=== PATIENT | male | born 1955 | race Caucasian/White ===

== ENCOUNTER 2019-12-04 14:20 | Emergency (ER) | payer SELFPAY ==
[~2019-12-04 14:20] MED LIST: Tenecteplase 50 MG Kit ONE
--- NOTE | 2019-12-04 15:20 | CR ---
Abdomen: Supine and upright views the abdomen were obtained. Comparison: No prior abdominal x-ray. Aortoiliac stent is noted. Bowel gas pattern is normal. Calcifications are seen within the pelvis which are compatible with phleboliths. Small nonobstructing stone also felt to be present within the left kidney. Impression: 1. Calcifications as noted above. 2. Nothing acute is appreciated. Diagnostic code #2 Study was dictated in MDT
--- NOTE | 2019-12-04 15:21 | CR ---
Chest: Portable view of the chest was obtained. Comparison: Prior chest x-ray of 05/19/16. Findings: Heart size is normal. Tortuous thoracic aorta is seen. Lungs are clear with no acute parenchymal change. Bony structures are grossly intact. Impression: 1. Nothing acute is seen on portable chest x-ray. Diagnostic code #1 Study was dictated in MDT
[2019-12-04] MEDS ORDERED: Lactated Ringers 1,000 ML IV ONE ×2 (16:46→17:34)
--- NOTE | 2019-12-04 16:57 | EDM.PDOC ---
ED HPI GENERAL MEDICAL PROBLEM - General Chief Complaint: Gastrointestinal Problem Stated Complaint: [facility] Time Seen by Provider: 12/04/19 16:44 - History of Present Illness INITIAL COMMENTS - FREE TEXT/NARRATIVE: 64-year-old male brought into the emergency room with nausea a little vomiting and poor appetite. This is been going on for couple weeks the patient denies any pain. The patient has history of some vascular disease he had a aortic stent placed some years back with extensions into the iliac vessels. The patient continues to smoke 1 to 2 packs of cigarettes a day. At this time he denies any pain he has not had any diarrhea and he is not aware of any fevers he just has not eat when or drinking very much over the last couple weeks he believes he is down about 20 pounds. - Related Data Allergies Allergy/AdvReac Type Severity Reaction Status Date / Time No Known Allergies Allergy Verified 12/04/19 14:29 Home Meds: Home Meds Ondansetron [Ondansetron ODT] 4 mg PO ASDIRECTED PRN #12 tab.rapdis 12/04/19 [Rx] Potassium Chloride 0 meq PO DAILY 12/04/19 [History] Past Medical History HEENT History: Reports: Impaired Vision Cardiovascular History: Reports: Hypertension Respiratory History: Reports: None Gastrointestinal History: Reports: None Genitourinary History: Reports: None Musculoskeletal History: Reports: Fracture Neurological History: Reports: None Psychiatric History: Reports: None Endocrine/Metabolic History: Reports: Hypokalemia Hematologic History: Reports: None Immunologic History: Reports: None Oncologic (Cancer) History: Reports: None Dermatologic History: Reports: None - Infectious Disease History Infectious Disease History: Reports: None - Past Surgical History Cardiovascular Surgical History: Reports: Other (See Below) Other Cardiovascular Surgeries/Procedures: Aortic Anuerysm Repair Musculoskeletal Surgical History: Reports: Shoulder Surgery Social & Family History - Tobacco Use Smoking Status *Q: Current Every Day Smoker Years of Tobacco use: 45 Packs/Tins Daily: 2 - Caffeine Use Caffeine Use: Reports: Coffee, Soda - Recreational Drug Use Recreational Drug Use: No ED ROS GENERAL - Review of Systems Review Of Systems: See Below Constitutional: Reports: No Symptoms HEENT: Reports: No Symptoms Respiratory: Reports: No Symptoms Cardiovascular: Reports: No Symptoms Endocrine: Reports: No Symptoms GI/Abdominal: Reports: No Symptoms : Reports: No Symptoms Musculoskeletal: Reports: No Symptoms Skin: Reports: No Symptoms Neurological: Reports: No Symptoms Psychiatric: Reports: No Symptoms Hematologic/Lymphatic: Reports: No Symptoms ED EXAM, GENERAL - Physical Exam Exam: See Below Exam Limited By: No Limitations General Appearance: Alert, No Apparent Distress Eye Exam: Bilateral Eye: Normal Inspection Ears: Normal External Exam, Normal Canal, Hearing Grossly Normal, Normal TMs Nose: Normal Inspection, Normal Mucosa, No Blood Throat/Mouth: Normal Inspection, Normal Lips, Normal Teeth, Normal Gums, Normal Oropharynx, Normal Voice, No Airway Compromise, Other (Semi-dry mucosa) Head: Atraumatic, Normocephalic Neck: Normal Inspection, Supple, Non-Tender, Full Range of Motion. No: Lymphadenopathy (L), Lymphadenopathy (R) Respiratory/Chest: No Respiratory Distress, Lungs Clear, Normal Breath Sounds, No Accessory Muscle Use, Chest Non-Tender Cardiovascular: Regular Rate, Rhythm, No Edema, No Murmur GI/Abdominal: Normal Bowel Sounds, Soft, Non-Tender Back Exam: Normal Inspection. No: CVA Tenderness (L), CVA Tenderness (R) Extremities: Normal Inspection, Normal Range of Motion, Non-Tender Neurological: Alert, Oriented, Normal Cognition Psychiatric: Normal Affect, Normal Mood EKG INTERPRETATION EKG Date: 12/04/19 Rhythm: NSR [place]: LAD-Left [place] Deviation P-Wave: Present QRS: LBBB ST-T: Other (Normal disconcordant pattern except he has concordant ST depression in the inferior leads of indeterminate significance) QT: Normal Comparison: NA - No Prior EKG Course - Vital Signs Last Recorded V/S: Last Vital Signs Temp 36.5 C 12/04/19 14:24 Pulse 91 12/04/19 14:24 Resp 16 12/04/19 14:24 BP 137/89 12/04/19 14:24 Pulse Ox 94 L 12/04/19 14:24 - Orders/Labs/Meds Orders: Active Orders 24 hr Category Date Time Status EKG Documentation Completion [RC] STAT Care 12/04/19 14:31 Active UA RFX KANU AND CULT IF INDIC [URIN] Stat Lab 12/04/19 17:35 Ordered Labs: Laboratory Tests 12/04/19 12/04/19 12/04/19 Range/Units 14:27 14:27 14:27 WBC 10.50 H (4.23-9.07) K/mm3 RBC 5.35 (4.63-6.08) M/mm3 Hgb 15.8 (13.7-17.5) gm/dl Hct 47.0 (40.1-51.0) % MCV 87.9 (79.0-92.2) fl MCH 29.5 (25.7-32.2) pg MCHC 33.6 (32.2-35.5) g/dl RDW Std Deviation 46.1 H (35.1-43.9) fL Plt Count 211 (163-337) K/mm3 MPV 12.3 (9.4-12.3) fl Neut % (Auto) 75.1 H (34.0-67.9) % Lymph % (Auto) 12.1 L (21.8-53.1) % Harris % (Auto) 11.4 (5.3-12.2) % Eos % (Auto) 0.7 L (0.8-7.0) Baso % (Auto) 0.4 (0.1-1.2) % Neut # (Auto) 7.89 H (1.78-5.38) K/mm3 Lymph # (Auto) 1.27 L (1.32-3.57) K/mm3 Harris # (Auto) 1.20 H (0.30-0.82) K/mm3 Eos # (Auto) 0.07 (0.04-0.54) K/mm3 Baso # (Auto) 0.04 (0.01-0.08) K/mm3 Manual Slide Review Normal smear PT 11.9 H (9.7-11.7) SECONDS INR 1.11 APTT 30 (22-31) SECONDS Sodium 141 (136-145) mEq/L Potassium 3.5 (3.5-5.1) mEq/L Chloride 104 (98-107) mEq/L Carbon Dioxide 27 (21-32) mEq/L Anion Gap 13.5 (5-15) BUN 42 H D (7-18) mg/dL Creatinine 1.8 H (0.7-1.3) mg/dL Est Cr Clr Drug Dosing 42.00 mL/min Estimated GFR (MDRD) 38 (>60) mL/min BUN/Creatinine Ratio 23.3 H (14-18) Glucose 125 H (80-115) mg/dL Calcium 10.0 (8.5-10.1) mg/dL Ferritin (26-388) ng/ml Total Bilirubin 0.7 (0.2-1.0) mg/dL AST 21 (15-37) U/L ALT 19 (16-63) U/L Alkaline Phosphatase 80 (46-116) U/L Lactate Dehydrogenase (85-227) U/L Troponin I (0.00-0.056) ng/mL C-Reactive Protein (<1.0) mg/dL Total Protein 7.4 (6.4-8.2) g/dl Albumin 3.8 (3.4-5.0) g/dl Globulin 3.6 gm/dL Albumin/Globulin Ratio 1.1 (1-2) COVID-19 (KATELYN) (NEGATIVE) 12/04/19 12/04/19 12/04/19 Range/Units 14:27 14:27 14:27 WBC (4.23-9.07) K/mm3 RBC (4.63-6.08) M/mm3 Hgb (13.7-17.5) gm/dl Hct (40.1-51.0) % MCV (79.0-92.2) fl MCH (25.7-32.2) pg MCHC (32.2-35.5) g/dl RDW Std Deviation (35.1-43.9) fL Plt Count (163-337) K/mm3 MPV (9.4-12.3) fl Neut % (Auto) (34.0-67.9) % Lymph % (Auto) (21.8-53.1) % Harris % (Auto) (5.3-12.2) % Eos % (Auto) (0.8-7.0) Baso % (Auto) (0.1-1.2) % Neut # (Auto) (1.78-5.38) K/mm3 Lymph # (Auto) (1.32-3.57) K/mm3 Harris # (Auto) (0.30-0.82) K/mm3 Eos # (Auto) (0.04-0.54) K/mm3 Baso # (Auto) (0.01-0.08) K/mm3 Manual Slide Review PT (9.7-11.7) SECONDS INR APTT (22-31) SECONDS Sodium (136-145) mEq/L Potassium (3.5-5.1) mEq/L Chloride (98-107) mEq/L Carbon Dioxide (21-32) mEq/L Anion Gap (5-15) BUN (7-18) mg/dL Creatinine (0.7-1.3) mg/dL Est Cr Clr Drug Dosing mL/min Estimated GFR (MDRD) (>60) mL/min BUN/Creatinine Ratio (14-18) Glucose (80-115) mg/dL Calcium (8.5-10.1) mg/dL Ferritin 739 H (26-388) ng/ml Total Bilirubin (0.2-1.0) mg/dL AST (15-37) U/L ALT (16-63) U/L Alkaline Phosphatase (46-116) U/L Lactate Dehydrogenase 180 (85-227) U/L Troponin I < 0.017 (0.00-0.056) ng/mL C-Reactive Protein <0.2 (<1.0) mg/dL Total Protein (6.4-8.2) g/dl Albumin (3.4-5.0) g/dl Globulin gm/dL Albumin/Globulin Ratio (1-2) COVID-19 (KATELYN) (NEGATIVE) 12/04/19 Range/Units 14:49 WBC (4.23-9.07) K/mm3 RBC (4.63-6.08) M/mm3 Hgb (13.7-17.5) gm/dl Hct (40.1-51.0) % MCV (79.0-92.2) fl MCH (25.7-32.2) pg MCHC (32.2-35.5) g/dl RDW Std Deviation (35.1-43.9) fL Plt Count (163-337) K/mm3 MPV (9.4-12.3) fl Neut % (Auto) (34.0-67.9) % Lymph % (Auto) (21.8-53.1) % Harris % (Auto) (5.3-12.2) % Eos % (Auto) (0.8-7.0) Baso % (Auto) (0.1-1.2) % Neut # (Auto) (1.78-5.38) K/mm3 Lymph # (Auto) (1.32-3.57) K/mm3 Harris # (Auto) (0.30-0.82) K/mm3 Eos # (Auto) (0.04-0.54) K/mm3 Baso # (Auto) (0.01-0.08) K/mm3 Manual Slide Review PT (9.7-11.7) SECONDS INR APTT (22-31) SECONDS Sodium (136-145) mEq/L Potassium (3.5-5.1) mEq/L Chloride (98-107) mEq/L Carbon Dioxide (21-32) mEq/L Anion Gap (5-15) BUN (7-18) mg/dL Creatinine (0.7-1.3) mg/dL Est Cr Clr Drug Dosing mL/min Estimated GFR (MDRD) (>60) mL/min BUN/Creatinine Ratio (14-18) Glucose (80-115) mg/dL Calcium (8.5-10.1) mg/dL Ferritin (26-388) ng/ml Total Bilirubin (0.2-1.0) mg/dL AST (15-37) U/L ALT (16-63) U/L Alkaline Phosphatase (46-116) U/L Lactate Dehydrogenase (85-227) U/L Troponin I (0.00-0.056) ng/mL C-Reactive Protein (<1.0) mg/dL Total Protein (6.4-8.2) g/dl Albumin (3.4-5.0) g/dl Globulin gm/dL Albumin/Globulin Ratio (1-2) COVID-19 (KATELYN) Negative (NEGATIVE) Meds: Medications Discontinued Medications Generic Name Dose Route Start Last Admin Trade Name Freq PRN Reason Stop Dose Admin Lactated Ringer's 1,000 mls @ 999 mls/hr 12/04/19 16:46 12/04/19 17:15 Ringers, Lactated IV 12/04/19 17:46 999 mls/hr .BOLUS ONE Administration Lactated Ringer's 1,000 mls @ 999 mls/hr 12/04/19 17:34 12/04/19 17:45 Ringers, Lactated IV 12/04/19 18:34 999 mls/hr .BOLUS ONE Administration - Re-Assessments/Exams Free Text/Narrative Re-Assessment/Exam: 12/04/19 19:37 Labs were obtained which were essentially unremarkable troponin is negative COVID is negative his ferritin was elevated. EKGs were reviewed by Dr. Carpenter steel tester at [facility] in [place] who did not think anything acute was going on with that. I am concerned about the patient's dehydration. He cannot give us a urine specimen here in the emergency room after receiving 2-1/2 L of fluid. I have offered the patient observation for rehydration but he declined this he really wants to go home he does have follow-up arranged with his provider in [place] tomorrow. I did still rather the patient stay here I discussed this with the patient a couple of times but he is really insistent on going home right now so I will discharge him. Departure - Departure Time of Disposition: 19:39 Disposition: Home, Self-Care 01 Clinical Impression: Dehydration, Renal insufficiency, Weight loss, Nausea & vomiting - Discharge Information Referrals: PCP,None [Primary Care Provider] - Forms: ED Department Discharge Additional Instructions: Return to the emergency room with any questions problems or worsening symptoms. Follow-up in the [facility] tomorrow as scheduled. Discuss your problems with voiding have your urine checked and repeat blood work You have been given a prescription for Zofran to take 1 every 4-6 hours as needed for nausea. It is essential to keep this under control because you must drink lots of fluids. Drink lots of fluids. Sepsis Event Note (ED) - Evaluation Sepsis Screening Result: No Definite Risk - Focused Exam Vital Signs: Vital Signs Temp Pulse Resp BP Pulse Ox 12/04/19 14:24 36.5 C 91 16 137/89 94 L - My Orders Last 24 Hours: My Active Orders 12/04/19 14:31 EKG Documentation Completion [RC] STAT 12/04/19 17:35 UA RFX KANU AND CULT IF INDIC [URIN] Stat - Assessment/Plan Last 24 Hours: My Active Orders 12/04/19 14:31 EKG Documentation Completion [RC] STAT 12/04/19 17:35 UA RFX KANU AND CULT IF INDIC [URIN] Stat
== END 2019-12-04 19:50 | disposition home or self-care (01) ==
LOC: JD.ED 14:20
DX: E86.0 Dehydration (principal); R11.2 Nausea with vomiting, unspecified; I10 Essential (primary) hypertension; F17.210 Nicotine dependence, cigarettes, uncomplicated; R63.4 Abnormal weight loss; Z20.828 Contact with and (suspected) exposure to other viral communicable diseases; N28.9 Disorder of kidney and ureter, unspecified
CPT/HCPCS: 36415; 71045; 74019; 80053; 82728; 83615; 84484; 85025; 85610; 85730; 86140; 87635; 93005; 96360; 96361; 99285; J7120; 93010; 99283; U0002

== ENCOUNTER 2019-12-16 17:53 | Inpatient (IN) | payer SELFPAY ==
[2019-12-16] MEDS ORDERED: Sodium Chloride 0.9% 1,000 ML IV ONE (18:51)
[2019-12-16] MEDS: Sodium Chloride 0.9% 10 ML Syringe FLUSH PRN ×2 (19:02→19:56)
--- NOTE | 2019-12-16 19:26 | EDM.PDOC ---
ED HPI GENERAL MEDICAL PROBLEM - General Chief Complaint: Gastrointestinal Problem Stated Complaint: [facility] Time Seen by Provider: 12/16/19 18:58 Source of Information: Reports: Patient, Old Records (ED visit 12/04/2019) History Limitations: Reports: No Limitations - History of Present Illness INITIAL COMMENTS - FREE TEXT/NARRATIVE: Mr. Caldwell is a very pleasant 64-year-old gentleman who, medical records indicate, was seen in this ED on 12/04/2019 with a complaint at that time of vomiting and poor oral intake for about 2 weeks with a concomitant weight loss of about 20 pounds over that period of time. He was found to be hemodynamically stable, afebrile, saturating 94% on room air. His physical exam was unremarkable. Work-up included a CBC, CMP, LDH, ferritin, CRP, troponin, an ECG, and a test for the SARS-CoV-2 virus. His BUN/Cr was elevated at 42/1.8. His ferritin returned elevated at 739, with the remainder of his work-up being unremarkable. His case was discussed with cardiology in [place], who did not feel the patient required transfer. The patient was offered placement into observation for IV fluid, however, the patient declined and was therefore discharged home with a prescription for Zofran. The patient states that he followed up with his PCP on 12/05/2019, and was prescribed both omeprazole and sucralfate. The patient now returns to the ED by EMS with a complaint of progressively worsening weakness the past 2 weeks, to the point that he can barely ambulate today. He states that he has continued to vomit, and he believes that he is lost about 20 pounds over the past 2 weeks. He denies having abdominal pain, although he states that he has not had a bowel movement in about 1 week. The patient states that because of his nausea and vomiting, he has not taken any of his medications, including his recently prescribed medications, over the past 3 weeks, approximately. Per the triage note, EMS found the patient's BP to be depressed at 88/54, therefore he was given a 500 mL bolus of IV fluid en route to the ED. Here in the ED, the patient's initial BP is found to be slightly elevated at 143/94, otherwise, he is hemodynamically stable, afebrile, saturating 97% on room air. Other than the above symptoms, the patient denies having a recent fever, chills, sore throat, ear pain, nasal or sinus congestion, cough, dyspnea, chest pain, palpitations, diarrhea, abdominal pain, urinary symptoms, recent bloody bowel movements or black bowel movements, recent joint aches, headaches, or rashes. The patient's PCP is ROBERT Dos Santos. - Related Data Allergies Allergy/AdvReac Type Severity Reaction Status Date / Time No Known Allergies Allergy Verified 12/16/19 18:06 Home Meds: Home Meds Ondansetron [Ondansetron ODT] 4 mg PO ASDIRECTED PRN #12 tab.rapdis 12/04/19 [Rx] Metoprolol Succinate [Toprol XL 50mg] 50 mg PO DAILY 12/16/19 [History] Omeprazole 20 mg PO DAILY 12/16/19 [History] Past Medical History HEENT History: Reports: Impaired Vision Cardiovascular History: Reports: High Cholesterol, Hypertension, PVD Musculoskeletal History: Reports: Fracture (right shoulder), Gout (suspected, not tested) - Past Surgical History Cardiovascular Surgical History: Reports: Aneurysm (infrarenal aortic and bi- iliac aneurism graft) Musculoskeletal Surgical History: Reports: ORIF (right shoulder) Social & Family History - Tobacco Use Smoking Status *Q: Current Every Day Smoker Years of Tobacco use: 51 Packs/Tins Daily: 2 - Caffeine Use Caffeine Use: Reports: Coffee - Alcohol Use Alcohol Use History: No - Recreational Drug Use Recreational Drug Use: No - Living Situation & Occupation Living situation: Reports: , Alone 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 ED EXAM, GENERAL - Physical Exam Exam: See Below Exam Limited By: No Limitations General Appearance: Alert, No Apparent Distress, Thin Eye Exam: Bilateral Eye: EOMI, Normal Inspection Ears: Normal External Exam, Hearing Grossly Normal Nose: Normal Inspection Throat/Mouth: Normal Inspection, Normal Lips, Normal Voice, No Airway Com promise, Other (No facemask) Head: Atraumatic, Normocephalic Neck: Normal Inspection, Full Range of Motion Respiratory/Chest: No Respiratory Distress, Lungs Clear, Normal Breath Sounds, No Accessory Muscle Use Cardiovascular: Regular Rate, Rhythm, No Edema, No Gallop, No JVD, No Murmur, No Rub Peripheral Pulses: 1+: Radial (L), Radial (R) GI/Abdominal: Normal Bowel Sounds, Soft, Non-Tender, No Organomegaly, No Distention, No Abnormal Bruit, Mass (tubular, non-pulsatile, nontender in the left lower quadrant) (Male) Exam: Deferred Rectal (Males) Exam: Deferred Back Exam: Normal Inspection, Full Range of Motion, NT Extremities: Normal Inspection, Normal Range of Motion, No Pedal Edema, Normal Capillary Refill Neurological: Alert, Oriented, Normal Cognition, No Motor/Sensory Deficits Psychiatric: Normal Affect Skin Exam: Warm, Dry, Intact, Normal Color, No Rash EKG INTERPRETATION EKG Date: 12/16/19 Time: 19:56 Rhythm: NSR Rate (Beats/Min): 69 Shelton: LAD-Left Shelton Deviation P-Wave: Present QRS: LBBB QT: Prolonged (QTc 526) Comparison: No Change (12/04/2019) Course - Vital Signs Last Recorded V/S: Last Vital Signs Temp 36.1 C 12/16/19 17:58 Pulse 87 12/16/19 17:58 Resp 16 12/16/19 17:58 BP 151/87 H 12/16/19 19:07 Pulse Ox 97 12/16/19 17:58 Orthostatic Blood Pressure [ 146/92 Sitting] Orthostatic Blood Pressure [ 150/85 Supine] - Orders/Labs/Meds Orders: Active Orders 24 hr Category Date Time Status Bladder Scan [RC] ASDIRECTED Care 12/16/19 20:32 Active Blood Pressure Mgt: Sepsis [RC] [id number] Care 12/16/19 18:52 Active EKG Documentation Completion [RC] STAT Care 12/16/19 19:22 Active Orthostatic Vital Signs [RC] STAT Care 12/16/19 19:22 Active BASIC METABOLIC PANEL,BMP [CHEM] Timed Lab 12/17/19 08:00 Ordered CULTURE BLOOD [BC] Stat Lab 12/16/19 19:00 Received CULTURE BLOOD [BC] Stat Lab 12/16/19 19:15 Received Sodium Chloride 0.9% [Normal Saline] 1,000 ml Med 12/17/19 01:45 Active IV ASDIRECTED Sodium Chloride 0.9% [Saline Flush] Med 12/16/19 18:51 Active 10 ml FLUSH ASDIRECTED PRN Blood Culture x2 Reflex Set [OM.PC] Stat Oth 12/16/19 18:52 Ordered Saline Lock Insert [OM.PC] Stat Oth 12/16/19 18:52 Ordered Medication Orders Sodium Chloride (Normal Saline) 1,000 mls @ 250 mls/hr IV ASDIRECTED SANIA Last Admin: 12/17/19 02:00 Dose: 250 mls/hr Documented by: KAREEM Sodium Chloride (Saline Flush) 10 ml FLUSH ASDIRECTED PRN PRN Reason: Keep Vein Open Last Admin: 12/16/19 19:56 Dose: 10 ml Documented by: Admin: 12/16/19 19:02 Dose: 10 ml Documented by: YOBANI Labs: Laboratory Tests 12/16/19 12/16/19 12/16/19 Range/Units 19:00 19:00 19:00 WBC 21.92 H (4.23-9.07) K/mm3 RBC 5.96 (4.63-6.08) M/mm3 Hgb 17.4 D (13.7-17.5) gm/dl Hct 51.9 H (40.1-51.0) % MCV 87.1 (79.0-92.2) fl MCH 29.2 (25.7-32.2) pg MCHC 33.5 (32.2-35.5) g/dl RDW Std Deviation 49.1 H (35.1-43.9) fL Plt Count 175 (163-337) K/mm3 MPV 12.4 H (9.4-12.3) fl Neutrophils % (Manual) 85 H (40-60) % Band Neutrophils % 0 (0-10) % Lymphocytes % (Manual) 9 L (20-40) % Atypical Lymphs % 1 % Monocytes % (Manual) 5 (2-10) % Eosinophils % (Manual) 0 L (0.8-7.0) % Basophils % (Manual) 0 L (0.2-1.2) Platelet Estimate Adequate RBC Morph Comment Normal PT 12.8 H (9.7-11.7) SECONDS INR 1.20 Sodium 150 H (136-145) mEq/L Potassium 3.4 L (3.5-5.1) mEq/L Chloride 108 H (98-107) mEq/L Carbon Dioxide 24 (21-32) mEq/L Anion Gap 21.4 H (5-15) BUN 118 H D (7-18) mg/dL Creatinine 3.2 H D (0.7-1.3) mg/dL Est Cr Clr Drug Dosing 14.77 mL/min Estimated GFR (MDRD) 20 (>60) mL/min BUN/Creatinine Ratio 36.9 H (14-18) Glucose 127 H (80-115) mg/dL Lactic Acid (0.4-2.0) mmol/L Calcium 9.8 (8.5-10.1) mg/dL Magnesium (1.8-2.4) mg/dl Total Bilirubin 1.2 H (0.2-1.0) mg/dL AST 15 (15-37) U/L ALT 15 L (16-63) U/L Alkaline Phosphatase 88 (46-116) U/L Creatine Kinase (39-308) U/L Troponin I 0.067 H* (0.00-0.056) ng/mL C-Reactive Protein 0.7 (<1.0) mg/dL Total Protein 7.4 (6.4-8.2) g/dl Albumin 3.9 (3.4-5.0) g/dl Globulin 3.5 gm/dL Albumin/Globulin Ratio 1.1 (1-2) TSH 3rd Generation (0.358-3.74) uIU/mL Urine Color (Yellow) Urine Appearance (Clear) Urine pH (5.0-8.0) Ur Specific Ferriday (1.005-1.030) Urine Protein (Negative) Urine Glucose (UA) (Negative) Urine Ketones (Negative) Urine Occult Blood (Negative) Urine Nitrite (Negative) Urine Bilirubin (Negative) Urine Urobilinogen (0.2-1.0) Ur Leukocyte Esterase (Negative) U Hyaline Cast (Auto) (0-5) /lpf Urine RBC (0-5) /hpf Urine WBC (0-5) /hpf Ur Epithelial Cells (0-5) /hpf Urine Bacteria (FEW) /hpf Urine Mucus (FEW) /hpf COVID-19 (KATELYN) (NEGATIVE) 12/16/19 12/16/19 12/16/19 Range/Units 19:00 19:00 20:09 WBC (4.23-9.07) K/mm3 RBC (4.63-6.08) M/mm3 Hgb (13.7-17.5) gm/dl Hct (40.1-51.0) % MCV (79.0-92.2) fl MCH (25.7-32.2) pg MCHC (32.2-35.5) g/dl RDW Std Deviation (35.1-43.9) fL Plt Count (163-337) K/mm3 MPV (9.4-12.3) fl Neutrophils % (Manual) (40-60) % Band Neutrophils % (0-10) % Lymphocytes % (Manual) (20-40) % Atypical Lymphs % % Monocytes % (Manual) (2-10) % Eosinophils % (Manual) (0.8-7.0) % Basophils % (Manual) (0.2-1.2) Platelet Estimate RBC Morph Comment PT (9.7-11.7) SECONDS INR Sodium (136-145) mEq/L Potassium (3.5-5.1) mEq/L Chloride (98-107) mEq/L Carbon Dioxide (21-32) mEq/L Anion Gap (5-15) BUN (7-18) mg/dL Creatinine (0.7-1.3) mg/dL Est Cr Clr Drug Dosing mL/min Estimated GFR (MDRD) (>60) mL/min BUN/Creatinine Ratio (14-18) Glucose (80-115) mg/dL Lactic Acid 1.7 (0.4-2.0) mmol/L Calcium (8.5-10.1) mg/dL Magnesium 3.7 H (1.8-2.4) mg/dl Total Bilirubin (0.2-1.0) mg/dL AST (15-37) U/L ALT (16-63) U/L Alkaline Phosphatase (46-116) U/L Creatine Kinase 100 (39-308) U/L Troponin I (0.00-0.056) ng/mL C-Reactive Protein (<1.0) mg/dL Total Protein (6.4-8.2) g/dl Albumin (3.4-5.0) g/dl Globulin gm/dL Albumin/Globulin Ratio (1-2) TSH 3rd Generation 0.955 (0.358-3.74) uIU/mL Urine Color (Yellow) Urine Appearance (Clear) Urine pH (5.0-8.0) Ur Specific Ferriday (1.005-1.030) Urine Protein (Negative) Urine Glucose (UA) (Negative) Urine Ketones (Negative) Urine Occult Blood (Negative) Urine Nitrite (Negative) Urine Bilirubin (Negative) Urine Urobilinogen (0.2-1.0) Ur Leukocyte Esterase (Negative) U Hyaline Cast (Auto) (0-5) /lpf Urine RBC (0-5) /hpf Urine WBC (0-5) /hpf Ur Epithelial Cells (0-5) /hpf Urine Bacteria (FEW) /hpf Urine Mucus (FEW) /hpf COVID-19 (KATELYN) Negative (NEGATIVE) 12/16/19 12/17/19 12/17/19 Range/Units 22:00 00:10 04:00 WBC (4.23-9.07) K/mm3 RBC (4.63-6.08) M/mm3 Hgb (13.7-17.5) gm/dl Hct (40.1-51.0) % MCV (79.0-92.2) fl MCH (25.7-32.2) pg MCHC (32.2-35.5) g/dl RDW Std Deviation (35.1-43.9) fL Plt Count (163-337) K/mm3 MPV (9.4-12.3) fl Neutrophils % (Manual) (40-60) % Band Neutrophils % (0-10) % Lymphocytes % (Manual) (20-40) % Atypical Lymphs % % Monocytes % (Manual) (2-10) % Eosinophils % (Manual) (0.8-7.0) % Basophils % (Manual) (0.2-1.2) Platelet Estimate RBC Morph Comment PT (9.7-11.7) SECONDS INR Sodium 145 145 (136-145) mEq/L Potassium 3.2 L 3.7 (3.5-5.1) mEq/L Chloride 108 H 109 H (98-107) mEq/L Carbon Dioxide 26 25 (21-32) mEq/L Anion Gap 14.2 14.7 (5-15) BUN 109 H 102 H (7-18) mg/dL Creatinine 2.9 H 2.7 H (0.7-1.3) mg/dL Est Cr Clr Drug Dosing 16.29 17.50 mL/min Estimated GFR (MDRD) 22 24 (>60) mL/min BUN/Creatinine Ratio 37.6 H 37.8 H (14-18) Glucose 212 H 111 (80-115) mg/dL Lactic Acid (0.4-2.0) mmol/L Calcium 9.0 8.9 (8.5-10.1) mg/dL Magnesium (1.8-2.4) mg/dl Total Bilirubin (0.2-1.0) mg/dL AST (15-37) U/L ALT (16-63) U/L Alkaline Phosphatase (46-116) U/L Creatine Kinase (39-308) U/L Troponin I (0.00-0.056) ng/mL C-Reactive Protein (<1.0) mg/dL Total Protein (6.4-8.2) g/dl Albumin (3.4-5.0) g/dl Globulin gm/dL Albumin/Globulin Ratio (1-2) TSH 3rd Generation (0.358-3.74) uIU/mL Urine Color Yellow (Yellow) Urine Appearance Clear (Clear) Urine pH 5.5 (5.0-8.0) Ur Specific Ferriday 1.020 (1.005-1.030) Urine Protein Trace H (Negative) Urine Glucose (UA) Negative (Negative) Urine Ketones Negative (Negative) Urine Occult Blood Negative (Negative) Urine Nitrite Negative (Negative) Urine Bilirubin 1+ H (Negative) Urine Urobilinogen 0.2 (0.2-1.0) Ur Leukocyte Esterase Negative (Negative) U Hyaline Cast (Auto) 30-40 H (0-5) /lpf Urine RBC Not seen (0-5) /hpf Urine WBC 0-5 (0-5) /hpf Ur Epithelial Cells Not seen (0-5) /hpf Urine Bacteria Few (FEW) /hpf Urine Mucus Few (FEW) /hpf COVID-19 (KATELYN) (NEGATIVE) Meds: Medications Generic Name Dose Route Start Last Admin Trade Name Freq PRN Reason Stop Dose Admin Sodium Chloride 1,000 mls @ 250 mls/hr 12/17/19 01:45 12/17/19 02:00 Normal Saline IV 250 mls/hr ASDIRECTED SANIA Administration Sodium Chloride 10 ml 12/16/19 18:51 12/16/19 19:56 Saline Flush FLUSH 10 ml ASDIRECTED PRN Administration Keep Vein Open Discontinued Medications Generic Name Dose Route Start Last Admin Trade Name Noy PRN Reason Stop Dose Admin Sodium Chloride 1,000 mls @ 999 mls/hr 12/16/19 18:51 12/16/19 19:03 Normal Saline IV 12/16/19 19:51 999 mls/hr BOLUS ONE Administration Protocol Dextrose/Water 1,000 mls @ 250 mls/hr 12/16/19 22:15 12/16/19 22:19 Dextrose 5% In Water IV 250 mls/hr ASDIRECTED SANIA Administration Potassium Chloride 10 meq/ 100 mls @ 100 mls/hr 12/17/19 02:00 12/17/19 03:07 Premix IV 12/17/19 03:59 100 mls/hr Q1H SANIA Administration Iopamidol 100 ml 12/16/19 19:57 12/16/19 19:57 Isovue-300 (61%) IVPUSH 12/16/19 19:58 100 ml ONETIME ONE Administration - Re-Assessments/Exams Free Text/Narrative Re-Assessment/Exam: 12/16/19 19:19 As above, the patient presents with 2 weeks of progressively worsening generalized weakness, to the point that he can barely walk today, and weight loss in the setting of 2 weeks of vomiting and no bowel movement for the past week. He denies having any pain. EMS found his BP to be depressed at 88/64 for which they gave a 500 mL bolus of IV fluid, however, his BP is mildly elevated at 143/94 upon arrival to the ED. on physical examination, the patient is thin, and he has a thready pulse. There is a tubular, non-pulsatile mass felt in his left lower quadrant that I suspect is stool in the sigmoid colon, otherwise, his physical examination is unremarkable. A work-up including blood work, 2 sets of blood cultures, a urinalysis, a chest x-ray, and a CT of the abdomen and pelvis with oral and IV contrast was ordered at triage. I have added to this work-up orthostatics, additional blood work, an ECG, and a swab for the SARS-CoV-2 virus. 12/16/19 20:25 The patient is not orthostatic. His CBC is remarkable for a WBC count substantially elevated at 21.92, but with 0% bandemia. His Hct is elevated at 51.9, but with a Hgb within normal limits at 17.4, and the remainder of his CBC being unremarkable. His CMP is remarkable for a sodium elevated 150, potassium slightly depressed at 3.4, and anion gap elevated at 21.4, but with a bicarbonate normal at 24, a BUN/Cr elevated at 118/3.2, blood glucose slightly elevated at 127, and a TBil slightly elevated at 1.2, with the remainder of his CMP being unremarkable. His magnesium level is elevated at 3.7. His lactic acid level is within normal limits at 1.7. His troponin is slightly elevated at 0.067. His CPK is within normal limits at 100. His CRP is within normal limits at 0.7. His PT is slightly elevated at 12.8 with an INR within normal limits at 1.20. His TSH is within normal limits at 0.955. Two-view chest radiograph reviewed. The cardiac silhouette is within normal limits. No pulmonary vascular congestion. No pleural effusions. No focal infiltrate. No pneumothorax. There is hyperinflation with bilateral diaphragmatic flattening, consistent with COPD. Slight thoracic scoliosis noted. Formal read per the Radiologist pending. CT of the abdomen and pelvis with oral and IV contrast is read by [facility] as: 1. Gastric and duodenal wall thickening. Findings may be secondary to underdistention versus peptic ulcer disease/gastroduodenitis. Correlate clinically. 2. Nondilated thickened small bowel loops. Findings can be seen in the setting of enteritis. 3. Colonic diverticula. Possible wall thickening of the distal descending and sigmoid colon. Finding may be secondary to pseudo-wall thickening / under distention versus mild colitis/diverticulitis. 4. No CT findings of acute appendicitis. 5. Nonobstructing nephrolithiasis LEFT kidney. 6. Hepatic steatosis. 7. Distended bladder. Correlation for possible bladder outlet obstruction. 8. Small hiatal hernia. Distal esophageal wall thickening. Fluid within the distal esophagus. Gastroesophageal reflux. Clinical correlation for esophagitis. 9. Additional nonemergent CT findings above. The patient has not yet provided a urine sample. I have ordered a post-void bladder scan, however, if the patient is not able to provide a urine sample, I will have the patient's nurse bladder scan him directly, and if over 450 mL, place a Collins catheter. 12/16/19 21:31 The patient's test for the SARS-CoV-2 virus has returned negative. 12/16/19 21:58 Notified by Nohemy AGUILERA that the bladder scan found about 580 mL of urine in the patient's bladder. She is placing a Collins catheter. 12/16/19 22:08 Current guidelines recommend free water replacement using D5W at 3 to 6 ml/kg/hr. I have therefore ordered D5W at 250 mL/h. 12/16/19 23:02 The patient's urinalysis is unremarkable. 12/17/19 01:47 The patient's BMP at 00:10 is remarkable for a sodium down to 145, with a potassium depressed at 3.2, and a BUN/Cr of 109/2.9. His blood glucose is elevated at 212, with the remainder of his BMP being unremarkable. Based on the above, I have switched the patient's IV fluid to NS at 250 mL/h, and ordered IV KCl, 20 mEq to be given over 2 hours. I have ordered a repeat BMP to be drawn at 04:00. 12/17/19 04:48 The repeat BMP at 04:00 has the sodium stable at 145, potassium up to 3.7, bicarbonate stable at 25, and BUN/Cr improving to 102/2.7. Based on the above, we will continue NS at 250 mL/h. I will order a repeat BMP to be drawn at 08:00. 12/17/19 06:[address] Truong at 06:30. He accepted the patient for admission to the hospital. Departure - Departure Time of Disposition: 06:35 Disposition: Admitted As Inpatient 65 Condition: Good Clinical Impression: Hypernatremia, Hypokalemia, Acute on chronic renal failure, Urinary retention - Discharge Information *PRESCRIPTION DRUG MONITORING PROGRAM REVIEWED*: Not Applicable *COPY OF PRESCRIPTION DRUG MONITORING REPORT IN PATIENT SRINIVAS: Not Applicable Referrals: Jerilyn Dawkins PA-C [Physician Head Of [employer]] - Forms: ED Department Discharge Sepsis Event Note (ED) - Evaluation Sepsis Screening Result: No Definite Risk - Focused Exam Vital Signs: Vital Signs BP 12/16/19 19:07 151/87 H 12/16/19 18:52 146/87 H - My Orders Last 24 Hours: My Active Orders 12/16/19 19:22 EKG Documentation Completion [RC] STAT Orthostatic Vital Signs [RC] STAT 12/16/19 20:32 Bladder Scan [RC] ASDIRECTED 12/17/19 01:45 Sodium Chloride 0.9% [Normal Saline] 1,000 ml IV ASDIRECTED 12/17/19 08:00 BASIC METABOLIC PANEL,BMP [CHEM] Timed - Assessment/Plan Last 24 Hours: My Active Orders 12/16/19 19:22 EKG Documentation Completion [RC] STAT Orthostatic Vital Signs [RC] STAT 12/16/19 20:32 Bladder Scan [RC] ASDIRECTED 12/17/19 01:45 Sodium Chloride 0.9% [Normal Saline] 1,000 ml IV ASDIRECTED 12/17/19 08:00 BASIC METABOLIC PANEL,BMP [CHEM] Timed
[2019-12-16] MEDS ORDERED: Iopamidol 612 MG/ML 100 ML Bottle IVPUSH ONE (19:57)
--- NOTE | 2019-12-16 20:42 | CT ---
CT abdomen and pelvis Technique: Multiple axial sections were obtained from above the dome of the diaphragm inferiorly through the pubic symphysis. Intravenous contrast was utilized. No oral contrast has been given. Delayed images were obtained through the bladder. Comparison: Prior abdominal x-ray of 12/04/19. Findings: Visualized lung bases show nothing acute. Liver contains no focal abnormality. Small hiatal hernia is noted. Spleen appears normal. Gallbladder contains no calcified gallstones. Cysts are noted within both kidneys. Largest cyst is located off the right kidney measuring 5.0 cm. Adrenal glands show no nodule. Pancreas shows no discrete abnormality. Abdominal aortic aneurysm is seen which contains an aortoiliac stent. Contrast remains within the stent. No retroperitoneal adenopathy or mesenteric abnormalities are seen. Sigmoid diverticuli are seen with no findings of diverticulitis. Appendix felt to be visualized and is normal in size. Delayed images shows no contrast within the bladder suggesting the possibility of dehydration. Bone window settings were reviewed which shows mild degenerative change within the lower lumbar spine. No acute osseous finding is appreciated. Impression: 1. Findings as noted above which are believed to be incidental. 2. Nothing acute is appreciated on CT study of the abdomen and pelvis. Diagnostic code #2 This report was dictated in MDT
--- NOTE | 2019-12-16 20:45 | CR ---
Chest: 2 views of the chest were obtained. Comparison: No prior chest imaging is available. Heart size and mediastinum are normal. Nodule on both sides of the chest possibly due to nipple densities since they are symmetric. Lungs are clear with no acute parenchymal change. Mild scoliosis is noted within the spine. Impression: 1. Nothing acute is seen on 2 view chest x-ray. Diagnostic code #2 This report was dictated in MDT
[2019-12-16] MEDS ORDERED: Dextrose 5% in Water 1,000 ML IV SCH (22:15)
[2019-12-17] MEDS ORDERED: Sodium Chloride 0.9% 1,000 ML IV SCH (01:45)
[2019-12-17] MEDS: Potassium Chloride 10 MEQ in Premix Bag 1 BAG IV SCH ×2 (02:00→03:07)
[2019-12-17] MEDS ORDERED: Ondansetron 4 MG/2 ML SDV IV PRN (09:01)
[2019-12-17] MEDS ORDERED: Promethazine 12.5 MG in Sodium Chloride 0.9% 50 ML IV PRN (09:01)
[2019-12-17] MEDS ORDERED: Acetaminophen 325 MG Tab PO PRN (09:01)
[2019-12-17] MEDS ORDERED: Lactated Ringers 1,000 ML IV SCH (09:15)
[2019-12-17] MEDS: Nicotine 21 MG/24 Hr Patch TRDERM SCH (09:24)
--- NOTE | 2019-12-17 09:27 | PCM.HP.2 ---
H&P History of Present Illness - General Date of Service: 12/17/19 Admit Problem/Dx: Admission Diagnosis/Problem Admission Diagnosis/Problem Dehydration - History of Present Illness Initial Comments - Free Text/Narative: 64-year-old male with approximately 4-week history of nausea, vomiting and over 20-40 pound weight loss. Patient is a poor historian. He was seen in the emergency department on the first of this month with similar complaints lasting 2 weeks and a 20 pound weight loss. He has never had a colonoscopy or endoscopy done. On the first he was found to be hemodynamically stable, negative COVID testing, and work-up was unremarkable. At that time cardiology was consulted in [place] who felt he did not need transfer at that time and patient was offered observation and IV fluids but declined. Patient did follow-up with his PCP that week and was started on omeprazole and sucralfate. Patient states he has not been taking any medications, including medications prescribed by his PCP, sapna bonilla he has been vomiting for well over 2 weeks. He has had worsening weakness and states he passed out last night. Patient states that a couple of weeks ago he did have some mid sternal chest pain, characterized as pressure, nonradiating, but associated with his nausea and vomiting. EKG done on pt2019 showed left bundle branch block. Patient denies any history of a myocardial infarction he has a history of hypertension. Today when EMS arrived at the patient's house his blood pressure was 88/54. He was given a 500 mL bolus of IV fluids in route to the emergency department. In the emergency department patient was found to be stable with blood pressure of 143/94. Abdomen was nontender/benign. CT of the abdomen and pelvis with IV, but not oral contrast which showed only incidental findings and nothing acute. Preliminary read did show some gastric and duodenal wall thickening. Nondilated thickened small bowel loops. Possible wall thickening of the distal descending and sigmoid colon. Abdominal ultrasound was ordered when he got to the ICU which showed: 1. Complicated cyst within each kidney. Consider renal MRI without and with contrast to hopefully confirm benign appearance. 2. Simple cyst within each kidney also noted. 3. Soft tissue findings within the gallbladder most likely representing sludge balls. No shadowing gallstones, gallbladder wall thickening, or biliary duct dilatation is seen. 4. Atherosclerotic plaque within the aorta. Mid aorta is mildly aneurysmal at 3.5 cm in AP diameter. Lab tests are significant for WBC of 21.9, hemoglobin 17.4, platelets 175, 85% neutrophils, 0 bands, PT elevated at 12.6 and INR of 1.2, sodium initially was 150, potassium 3.4, anion gap 21.4, BUN 118, creatinine 3.2, estimated GFR 20, total bilirubin 1.2, troponin I 0.067, C-reactive protein 0.7. CK 100, TSH 0.955, COVID-19 negative. Patient given 3 L of fluid in the emergency department and renal function improved to a estimated GFR of 24. Sodium came down to 145. Patient denies any fever, chills, abdominal pain, diarrhea, does state he has not had a bowel movement in a few days, hematemesis, shortness of breath, orthopnea, PND. Patient does have a mild cough but this is no different. He states he has COPD. Patient also states that his mouth feels tender and dry. - Related Data Allergies/Adverse Reactions: Allergies Allergy/AdvReac Type Severity Reaction Status Date / Time No Known Allergies Allergy Verified 12/16/19 18:06 Home Medications: Home Meds Metoprolol Succinate [Toprol XL 50mg] 50 mg PO DAILY 12/16/19 [History] Omeprazole 20 mg PO DAILY 12/16/19 [History] Rosuvastatin Calcium 20 mg PO DAILY 12/17/19 [History] Past Medical History HEENT History: Reports: Impaired Vision Cardiovascular History: Reports: High Cholesterol, Hypertension, PVD Respiratory History: Reports: None Gastrointestinal History: Reports: None Genitourinary History: Reports: None Musculoskeletal History: Reports: Fracture, Gout Neurological History: Reports: None Psychiatric History: Reports: None Endocrine/Metabolic History: Reports: Hypokalemia Hematologic History: Reports: None Immunologic History: Reports: None Oncologic (Cancer) History: Reports: None Dermatologic History: Reports: None - Infectious Disease History Infectious Disease History: Reports: None - Past Surgical History Cardiovascular Surgical History: Reports: Aneurysm Musculoskeletal Surgical History: Reports: ORIF Social & Family History - Tobacco Use Smoking Status *Q: Current Every Day Smoker Years of Tobacco use: 30 Packs/Tins Daily: 1.5 Tobacco Use Comment: has been cutting back - Caffeine Use Caffeine Use: Reports: Coffee - Recreational Drug Use Recreational Drug Use: No - Living Situation & Occupation Living situation: Reports: , Alone 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 Exam - Exam Exam: See Below - Vital Signs Vital Signs: Last Vital Signs Temp 97.1 F 12/17/19 08:20 Pulse 56 L 12/17/19 08:20 Resp 20 12/17/19 08:20 BP 127/81 12/17/19 08:20 Pulse Ox 94 L 12/17/19 08:20 Orthostatic Blood Pressure [ 146/92 Sitting] Orthostatic Blood Pressure [ 150/85 Supine] Weight: 55.021 kg - Exam Quality Assessment: No: Supplemental Oxygen General: Alert, Oriented HEENT: Conjunctiva Clear, Hearing Intact, Mucosa Moist & Robbins, Normal Nasal Septum. No: Posterior Pharynx Clear (Mildly erythematous with white patches on the tongue) Neck: Supple, Trachea Midline, 2 Lungs: Normal Respiratory Effort, Decreased Breath Sounds, Wheezing (Bilateral apex) GI/Abdominal Exam: Normal Bowel Sounds, Soft, Non-Tender, No Organomegaly, No Distention, No Abnormal Bruit, No Mass Extremities: Normal Inspection, Normal Range of Motion, Non-Tender, No Pedal Edema, Normal Capillary Refill Peripheral Pulses: 1+: Femoral (R), Popliteal (L), Popliteal (R), Posterior Tibial (L) Skin: Warm, Dry, Intact Neuro Extensive - Mental Status: Alert, Oriented x3, Normal Mood/Affect, Normal Cognition, Memory Intact Neuro Extensive - Motor, Sensory, Reflexes: CN II-XII Intact Psychiatric: Alert, Normal Affect, Normal Mood - Patient Data Lab Results Last 24 hrs: Laboratory Results - last 24 hr 12/16/19 12/16/19 12/16/19 Range/Units 19:00 19:00 19:00 WBC 21.92 H (4.23-9.07) K/mm3 RBC 5.96 (4.63-6.08) M/mm3 Hgb 17.4 D (13.7-17.5) gm/dl Hct 51.9 H (40.1-51.0) % MCV 87.1 (79.0-92.2) fl MCH 29.2 (25.7-32.2) pg MCHC 33.5 (32.2-35.5) g/dl RDW Std Deviation 49.1 H (35.1-43.9) fL Plt Count 175 (163-337) K/mm3 MPV 12.4 H (9.4-12.3) fl Neutrophils % (Manual) 85 H (40-60) % Band Neutrophils % 0 (0-10) % Lymphocytes % (Manual) 9 L (20-40) % Atypical Lymphs % 1 % Monocytes % (Manual) 5 (2-10) % Eosinophils % (Manual) 0 L (0.8-7.0) % Basophils % (Manual) 0 L (0.2-1.2) Platelet Estimate Adequate RBC Morph Comment Normal PT 12.8 H (9.7-11.7) SECONDS INR 1.20 Sodium 150 H (136-145) mEq/L Potassium 3.4 L (3.5-5.1) mEq/L Chloride 108 H (98-107) mEq/L Carbon Dioxide 24 (21-32) mEq/L Anion Gap 21.4 H (5-15) BUN 118 H D (7-18) mg/dL Creatinine 3.2 H D (0.7-1.3) mg/dL Est Cr Clr Drug Dosing 14.77 mL/min Estimated GFR (MDRD) 20 (>60) mL/min BUN/Creatinine Ratio 36.9 H (14-18) Glucose 127 H (80-115) mg/dL Lactic Acid (0.4-2.0) mmol/L Calcium 9.8 (8.5-10.1) mg/dL Magnesium (1.8-2.4) mg/dl Total Bilirubin 1.2 H (0.2-1.0) mg/dL AST 15 (15-37) U/L ALT 15 L (16-63) U/L Alkaline Phosphatase 88 (46-116) U/L Creatine Kinase (39-308) U/L Troponin I 0.067 H* (0.00-0.056) ng/mL C-Reactive Protein 0.7 (<1.0) mg/dL Total Protein 7.4 (6.4-8.2) g/dl Albumin 3.9 (3.4-5.0) g/dl Globulin 3.5 gm/dL Albumin/Globulin Ratio 1.1 (1-2) TSH 3rd Generation (0.358-3.74) uIU/mL Urine Color (Yellow) Urine Appearance (Clear) Urine pH (5.0-8.0) Ur Specific [place] (1.005-1.030) Urine Protein (Negative) Urine Glucose (UA) (Negative) Urine Ketones (Negative) Urine Occult Blood (Negative) Urine Nitrite (Negative) Urine Bilirubin (Negative) Urine Urobilinogen (0.2-1.0) Ur Leukocyte Esterase (Negative) U Hyaline Cast (Auto) (0-5) /lpf Urine RBC (0-5) /hpf Urine WBC (0-5) /hpf Ur Epithelial Cells (0-5) /hpf Urine Bacteria (FEW) /hpf Urine Mucus (FEW) /hpf COVID-19 (KATELYN) (NEGATIVE) 12/16/19 12/16/19 12/16/19 Range/Units 19:00 19:00 20:09 WBC (4.23-9.07) K/mm3 RBC (4.63-6.08) M/mm3 Hgb (13.7-17.5) gm/dl Hct (40.1-51.0) % MCV (79.0-92.2) fl MCH (25.7-32.2) pg MCHC (32.2-35.5) g/dl RDW Std Deviation (35.1-43.9) fL Plt Count (163-337) K/mm3 MPV (9.4-12.3) fl Neutrophils % (Manual) (40-60) % Band Neutrophils % (0-10) % Lymphocytes % (Manual) (20-40) % Atypical Lymphs % % Monocytes % (Manual) (2-10) % Eosinophils % (Manual) (0.8-7.0) % Basophils % (Manual) (0.2-1.2) Platelet Estimate RBC Morph Comment PT (9.7-11.7) SECONDS INR Sodium (136-145) mEq/L Potassium (3.5-5.1) mEq/L Chloride (98-107) mEq/L Carbon Dioxide (21-32) mEq/L Anion Gap (5-15) BUN (7-18) mg/dL Creatinine (0.7-1.3) mg/dL Est Cr Clr Drug Dosing mL/min Estimated GFR (MDRD) (>60) mL/min BUN/Creatinine Ratio (14-18) Glucose (80-115) mg/dL Lactic Acid 1.7 (0.4-2.0) mmol/L Calcium (8.5-10.1) mg/dL Magnesium 3.7 H (1.8-2.4) mg/dl Total Bilirubin (0.2-1.0) mg/dL AST (15-37) U/L ALT (16-63) U/L Alkaline Phosphatase (46-116) U/L Creatine Kinase 100 (39-308) U/L Troponin I (0.00-0.056) ng/mL C-Reactive Protein (<1.0) mg/dL Total Protein (6.4-8.2) g/dl Albumin (3.4-5.0) g/dl Globulin gm/dL Albumin/Globulin Ratio (1-2) TSH 3rd Generation 0.955 (0.358-3.74) uIU/mL Urine Color (Yellow) Urine Appearance (Clear) Urine pH (5.0-8.0) Ur Specific [place] (1.005-1.030) Urine Protein (Negative) Urine Glucose (UA) (Negative) Urine Ketones (Negative) Urine Occult Blood (Negative) Urine Nitrite (Negative) Urine Bilirubin (Negative) Urine Urobilinogen (0.2-1.0) Ur Leukocyte Esterase (Negative) U Hyaline Cast (Auto) (0-5) /lpf Urine RBC (0-5) /hpf Urine WBC (0-5) /hpf Ur Epithelial Cells (0-5) /hpf Urine Bacteria (FEW) /hpf Urine Mucus (FEW) /hpf COVID-19 (KATELYN) Negative (NEGATIVE) 12/16/19 12/17/19 12/17/19 Range/Units 22:00 00:10 04:00 WBC (4.23-9.07) K/mm3 RBC (4.63-6.08) M/mm3 Hgb (13.7-17.5) gm/dl Hct (40.1-51.0) % MCV (79.0-92.2) fl MCH (25.7-32.2) pg MCHC (32.2-35.5) g/dl RDW Std Deviation (35.1-43.9) fL Plt Count (163-337) K/mm3 MPV (9.4-12.3) fl Neutrophils % (Manual) (40-60) % Band Neutrophils % (0-10) % Lymphocytes % (Manual) (20-40) % Atypical Lymphs % % Monocytes % (Manual) (2-10) % Eosinophils % (Manual) (0.8-7.0) % Basophils % (Manual) (0.2-1.2) Platelet Estimate RBC Morph Comment PT (9.7-11.7) SECONDS INR Sodium 145 145 (136-145) mEq/L Potassium 3.2 L 3.7 (3.5-5.1) mEq/L Chloride 108 H 109 H (98-107) mEq/L Carbon Dioxide 26 25 (21-32) mEq/L Anion Gap 14.2 14.7 (5-15) BUN 109 H 102 H (7-18) mg/dL Creatinine 2.9 H 2.7 H (0.7-1.3) mg/dL Est Cr Clr Drug Dosing 16.29 17.50 mL/min Estimated GFR (MDRD) 22 24 (>60) mL/min BUN/Creatinine Ratio 37.6 H 37.8 H (14-18) Glucose 212 H 111 (80-115) mg/dL Lactic Acid (0.4-2.0) mmol/L Calcium 9.0 8.9 (8.5-10.1) mg/dL Magnesium (1.8-2.4) mg/dl Total Bilirubin (0.2-1.0) mg/dL AST (15-37) U/L ALT (16-63) U/L Alkaline Phosphatase (46-116) U/L Creatine Kinase (39-308) U/L Troponin I (0.00-0.056) ng/mL C-Reactive Protein (<1.0) mg/dL Total Protein (6.4-8.2) g/dl Albumin (3.4-5.0) g/dl Globulin gm/dL Albumin/Globulin Ratio (1-2) TSH 3rd Generation (0.358-3.74) uIU/mL Urine Color Yellow (Yellow) Urine Appearance Clear (Clear) Urine pH 5.5 (5.0-8.0) Ur Specific [place] 1.020 (1.005-1.030) Urine Protein Trace H (Negative) Urine Glucose (UA) Negative (Negative) Urine Ketones Negative (Negative) Urine Occult Blood Negative (Negative) Urine Nitrite Negative (Negative) Urine Bilirubin 1+ H (Negative) Urine Urobilinogen 0.2 (0.2-1.0) Ur Leukocyte Esterase Negative (Negative) U Hyaline Cast (Auto) 30-40 H (0-5) /lpf Urine RBC Not seen (0-5) /hpf Urine WBC 0-5 (0-5) /hpf Ur Epithelial Cells Not seen (0-5) /hpf Urine Bacteria Few (FEW) /hpf Urine Mucus Few (FEW) /hpf COVID-19 (KATELYN) (NEGATIVE) Result Diagrams: 12/16/19 19:00 12/17/19 09:13 EKG INTERPRETATION EKG Date: 12/16/19 Time: 19:56 Rhythm: NSR Rate (Beats/Min): 69 QRS: LBBB (1 PVC) Sepsis Event Note - Evaluation Sepsis Screening Result: No Definite Risk - Focused Exam Vital Signs: Vital Signs Temp Pulse Resp BP Pulse Ox 12/17/19 08:20 97.1 F 56 L 20 127/81 94 L 12/17/19 07:30 54 L 19 133/80 99 - Problem List (1) Thrush, oral SNOMED Code(s): 83192440 ICD Code: B37.0 - CANDIDAL STOMATITIS Status: Acute Current Visit: Yes (2) COPD (chronic obstructive pulmonary disease) SNOMED Code(s): 54730805 ICD Code: J44.9 - CHRONIC OBSTRUCTIVE PULMONARY DISEASE, UNSPECIFIED Status: Acute Current Visit: Yes (3) Tobacco dependence SNOMED Code(s): 91877779 ICD Code: F17.200 - NICOTINE DEPENDENCE, UNSPECIFIED, UNCOMPLICATED Status: Acute Current Visit: Yes (4) Acute on chronic renal failure SNOMED Code(s): 021165553 ICD Code: N17.9 - ACUTE KIDNEY FAILURE, UNSPECIFIED; N18.9 - CHRONIC KIDNEY DISEASE, UNSPECIFIED Status: Acute Current Visit: Yes (5) Urinary retention SNOMED Code(s): 263064079 ICD Code: R33.9 - RETENTION OF URINE, UNSPECIFIED Status: Acute Current Visit: Yes (6) Nausea & vomiting SNOMED Code(s): 73780325 ICD Code: R11.2 - NAUSEA WITH VOMITING, UNSPECIFIED Status: Acute Current Visit: No (7) Weight loss SNOMED Code(s): 20184079, 290918870 ICD Code: R63.4 - ABNORMAL WEIGHT LOSS Status: Acute Current Visit: No (8) Hypernatremia SNOMED Code(s): 722668209 ICD Code: E87.0 - HYPEROSMOLALITY AND HYPERNATREMIA Status: Acute Current Visit: Yes (9) Cystic kidney disease, unspecified Status: Acute Current Visit: Yes Problem List Initiated/Reviewed/Updated: Yes Orders Last 24hrs: Active Orders 24 hr Category Date Time Status Patient Status [ADT] Routine ADT 12/17/19 07:29 Active Oxygen Therapy [RC] PRN Care 12/17/19 09:01 Ordered Up With Assistance [RC] ASDIRECTED Care 12/17/19 09:01 Ordered VTE/DVT Education [RC] PER UNIT ROUTINE Care 12/17/19 09:01 Ordered Vital Signs [RC] Q4H Care 12/17/19 09:01 Ordered PT Evaluation and Treatment [CONS] Routine Cons 12/17/19 09:06 Ordered Clear Liquid Diet [DIET] Diet 12/17/19 Lunch Ordered Abdomen Comp [US] Routine Exams 12/17/19 09:19 Ordered BASIC METABOLIC PANEL,BMP [CHEM] Timed Lab 12/17/19 08:00 Ordered CBC WITH AUTO DIFF [HEME] AM Lab 12/18/19 05:11 Ordered CBC WITH AUTO DIFF [HEME] AM Lab 12/19/19 05:11 Ordered COMPREHENSIVE METABOLIC PN,CMP [CHEM] AM Lab 12/18/19 05:11 Ordered COMPREHENSIVE METABOLIC PN,CMP [CHEM] AM Lab 12/19/19 05:11 Ordered CULTURE BLOOD [BC] Stat Lab 12/16/19 19:00 Received CULTURE BLOOD [BC] Stat Lab 12/16/19 19:15 Received MAGNESIUM [CHEM] AM Lab 12/18/19 05:11 Ordered MAGNESIUM [CHEM] AM Lab 12/19/19 05:11 Ordered PHOSPHORUS [CHEM] AM Lab 12/18/19 05:11 Ordered PHOSPHORUS [CHEM] AM Lab 12/19/19 05:11 Ordered PSA SCREEN [CHEM] Routine Lab 12/17/19 09:25 Ordered TROPONIN I [CHEM] Stat Lab 12/17/19 09:05 Ordered Acetaminophen [TylenoL] Med 12/17/19 09:01 Ordered 650 mg PO Q4H PRN Enoxaparin [Lovenox] Med 12/18/19 09:00 Ordered 40 mg SUBCUT DAILY Lactated Ringers [Ringers, Lactated] 1,000 ml Med 12/17/19 09:15 Ordered IV ASDIRECTED Nicotine [Habitrol] Med 12/17/19 09:15 Ordered 21 mg TRDERM DAILY Ondansetron [Zofran] Med 12/17/19 09:01 Ordered 4 mg IV Q4H PRN Pantoprazole [ProTONIX IV] Med 12/17/19 09:30 Ordered 40 mg IVPUSH Q12H Promethazine [Phenergan] 12.5 mg Med 12/17/19 09:01 Ordered Sodium Chloride 0.9% [Normal Saline] 50 ml IV Q6H Remove Patch Med 12/18/19 09:00 Active 1 ea TRDERM DAILY Rosuvastatin Calcium [Rosuvastatin Calcium] Med 12/17/19 09:30 Ordered 20 mg PO DAILY Sodium Chloride 0.9% [Normal Saline] 1,000 ml Med 12/17/19 01:45 Active IV ASDIRECTED Sodium Chloride 0.9% [Saline Flush] Med 12/16/19 18:51 Active 10 ml FLUSH ASDIRECTED PRN Blood Culture x2 Reflex Set [OM.PC] Stat Oth 12/16/19 18:52 Ordered Saline Lock Insert [OM.PC] Stat Oth 12/16/19 18:52 Ordered Resuscitation Status Routine Resus Stat 12/17/19 09:01 Ordered Medication Orders Acetaminophen (Tylenol) 650 mg PO Q4H PRN PRN Reason: Pain (Mild 1-3)/fever Enoxaparin Sodium (Lovenox) 30 mg SUBCUT DAILY SANIA Sodium Chloride (Normal Saline) 1,000 mls @ 250 mls/hr IV ASDIRECTED SANIA Last Admin: 12/17/19 02:00 Dose: 250 mls/hr Documented by: KAREEM Lactated Ringer's (Ringers, Lactated) 1,000 mls @ 250 mls/hr IV ASDIRECTED SANIA Stop: 12/17/19 13:14 Last Admin: 12/17/19 09:25 Dose: 250 mls/hr Documented by: MARGY Promethazine HCl 12.5 mg/ (Sodium Chloride) 50.5 mls @ 100 mls/hr IV Q6H PRN PRN Reason: Nausea/Vomiting Miscellaneous Information (Remove Patch) 1 ea TRDERM DAILY [facility] Nicotine (Habitrol) 21 mg TRDERM DAILY [facility] Last Admin: 12/17/19 09:24 Dose: 21 mg Documented by: MARGY Ondansetron HCl (Zofran) 4 mg IV Q4H PRN PRN Reason: Nausea/Vomiting Pantoprazole Sodium (Protonix Iv) 40 mg IVPUSH Q12H SANIA Rosuvastatin Calcium (Crestor) 20 mg PO DAILY [facility] Sodium Chloride (Saline Flush) 10 ml FLUSH ASDIRECTED PRN PRN Reason: Keep Vein Open Last Admin: 12/16/19 19:56 Dose: 10 ml Documented by: Admin: 12/16/19 19:02 Dose: 10 ml Documented by: YOBANI Assessment/Plan Comment:: Assessment 4-week history of vomiting Leukocytosis * Patient has had a 4-week history of vomiting without diagnosis. He is a nondrinker, does not use marijuana or other drugs, does have his gallbladder, has never had an upper or lower endoscopy. Father did of an unknown cancer, question skin cancer that went to his liver. * CT of the abdomen with gastric and duodenal wall thickening. Nondilated thickened small bowel loops. Possible wall thickening of the distal descending and sigmoid colon. * Ultrasound of the abdomen did show biliary sludge and a complex renal cyst. No dilation in the common bile duct. * He has never had an episode like this in the past. * Elevated WBC likely secondary to stress Dehydration/hypovolemia/acute renal injury/hypernatremia * Patient is severely volume depleted and has already received over 3 L of fluid. * Renal function has made a significant improvement. * BUN is down to 93 and creatinine down to 2.3. Sodium is back up to 148. Elevated troponin Likely subacute type 2 SC Hypertension History of abdominal aortic aneurysm leak with stent Left bundle branch block * Patient did have symptoms over the last couple of weeks. * Has a history of left bundle branch block * Has a history of abdominal aortic aneurysm with stent * Patient likely had an oxygen supply/demand mismatch secondary to severe hypo volemia and vomiting. * He is on metoprolol as outpatient Complicated cyst within each kidney * Seen on ultrasound and CT scan. * Radiology recommends MRI of the kidneys. COPD/tobaccoism * Chest x-ray shows overinflated lungs. Nothing acute. * Not short of breath and not on any inhalers. Oral thrush * Patient is significantly dry mouth and symptoms of burning. He also has red oral mucosa with white patches on his tongue. Plan * Vigorous IV rehydration * Clear liquid diet * Consult surgery for possible endoscopy when patient is stable * MRI of the kidneys without contrast * Zofran and Phenergan for nausea as needed * Follow CBC, CMP, mag, phosphorus * Nicotine patch * Nystatin orally for thrush * H pylori stool antigen * Stool for occult blood * Pantoprazole 40 mg IV every 12 hours. * PT eval and treat. * Follow-up blood cultures. * Procalcitonin. * Continue statin. * Restart metoprolol when appropriate. * VTE prophylaxis with Lovenox * CODE STATUS full code * Disposition: Admit to medical inpatient status. Length of stay likely 2 to 3 days. - Mortality Measure Prognosis:: Good
[2019-12-17] MEDS: Pantoprazole 40 MG Vial IVPUSH SCH ×2 (09:41→20:30)
--- NOTE | 2019-12-17 12:00 | US ---
Prominent ultrasound: Multiple real-time images of the abdomen were obtained. Pancreas shows no discrete abnormality. Liver contains no focal abnormality. Nonshadowing findings are seen within the gallbladder most likely due to sludge balls. No shadowing gallstones are seen. No gallbladder wall thickening or biliary duct dilatation is seen. Complicated cyst is noted within the right kidney measuring 1.9 cm. Simple cyst which is larger noted within the mid right kidney measuring 5.5 cm. Left kidney shows a complicated cyst measuring 1.8 cm. Simple cyst is noted within the upper left kidney measuring 2.1 cm. No hydronephrosis is seen. Spleen size is normal. Atherosclerotic plaque is noted within the aorta. Mid aorta is slightly aneurysmal at 3.5 cm in AP dimension. Inferior vena cava is patent. Main portal vein shows normal hepatopedal flow. Impression: 1. Complicated cyst within each kidney. Consider renal MRI (without and with contrast) to hopefully confirm benign appearance. 2. Simple cyst within each kidney also noted. 3. Soft tissue findings within the gallbladder most likely representing sludge balls. No shadowing gallstones, gallbladder wall thickening or biliary duct dilatation is seen. 4. Atherosclerotic plaque within the aorta. Mid aorta is mildly aneurysmal at 3.5 cm in AP dimension. Diagnostic code #9 This report was dictated in MDT
[2019-12-17] MEDS: Lactated Ringers 1,000 ML IV SCH ×3 (13:47→22:59)
[2019-12-17] MEDS: Nystatin Susp 100,000 Unit/ML 5 ML Oral Syringe PO SCH (20:26)
[2019-12-18] MEDS: Lactated Ringers 1,000 ML IV SCH (05:46)
[2019-12-18] MEDS: Potassium Chloride 10 MEQ in Premix Bag 1 BAG IV SCH ×4 (08:08→11:55)
[2019-12-18] MEDS: Nystatin Susp 100,000 Unit/ML 5 ML Oral Syringe PO SCH ×3 (08:27→21:06)
[2019-12-18] MEDS: Nicotine 21 MG/24 Hr Patch TRDERM SCH (08:31)
[2019-12-18] MEDS: Pantoprazole 40 MG Vial IVPUSH SCH ×2 (08:33→21:05)
[2019-12-18] MEDS ORDERED: Enoxaparin 30 MG/0.3 ML Syringe SUBCUT SCH (09:00)
[2019-12-18] MEDS ORDERED: Remove AND REPLACE NICOTINE Patch TRDERM SCH (09:00)
[2019-12-18] MEDS ORDERED: Rosuvastatin 10 MG Tab PO SCH (09:00)
[2019-12-18] MEDS: Potassium Chloride 20 MEQ in Dextrose 5% in Water 1,000 ML IV SCH ×4 (09:10→18:51)
--- NOTE | 2019-12-18 12:00 | PCM.PREANE ---
<Jaylene Sahni - Last Filed: 12/18/19 12:29> Preanesthetic Assessment - Procedure Proposed Procedure: Diagnostic EGD - Anesthesia/Transfusion/Family Hx Anesthesia History: Prior Anesthesia Without Reaction Family History of Anesthesia Reaction: No Transfusion History: No Prior Transfusion(s) - Review of Systems General: Weakness, Fatigue Pulmonary: Shortness of Breath, Cough, Other (COPD 1-2 ppday smoker. CXR Clear. ) Cardiovascular: No Symptoms, Other (Type II [place] two weeks ago from extreme dehydration. No cardiac symptoms since this time. ) Gastrointestinal: Nausea, Vomiting (Over the last month, unable to keep food down. Improving today tolerating liquids. ), Other (Weight Loss ) Neurological: No Symptoms Other: Reports: None - Physical Assessment Height: 1.78 m Weight: 57.742 kg ASA Class: 3 Airway Class: Mallampati = 2 Dentition: Reports: Missing Tooth/Teeth, Caries (Poor Dentition, none loose. ) Thyro-Mental Finger Breadths: 2 Mouth Opening Finger Breadths: 3 ROM/Head Extension: Full Lungs: Clear to Auscultation, Normal Respiratory Effort, Decreased Breath Sounds Cardiovascular: Regular Rate, Regular Rhythm - Imaging/EKG Impressions: Left BBB - Allergies Allergies/Adverse Reactions: Allergies Allergy/AdvReac Type Severity Reaction Status Date / Time No Known Allergies Allergy Verified 12/16/19 18:06 - Acknowledgements Anesthesia Type Planned: MAC Pt an Appropriate Candidate for the Planned Anesthesia: Yes Alternatives and Risks of Anesthesia Discussed w Pt/Guardian: Yes Pt/Guardian Understands and Agrees with Anesthesia Plan: Yes Additional Comments: Elian understands with his smoking history and COPD he is at high risk for respiratory compromise and prolonged intubation if mechanical ventilation is necessary. Consider RSI if nausea and vomiting persist. Reevaluate electrolyte balance this afternoon/tomorrow morning prior to proceeding. Spoke with Dr. Truong regarding case/plan of care. Dr. Benson notified. PreAnesthesia Questionnaire HEENT History: Reports: Impaired Vision Cardiovascular History: Reports: High Cholesterol, Hypertension, PVD Respiratory History: Reports: None Gastrointestinal History: Reports: None Genitourinary History: Reports: None Musculoskeletal History: Reports: Fracture, Gout Neurological History: Reports: None Psychiatric History: Reports: None Endocrine/Metabolic History: Reports: Hypokalemia Hematologic History: Reports: None Immunologic History: Reports: None Oncologic (Cancer) History: Reports: None Dermatologic History: Reports: None - Infectious Disease History Infectious Disease History: Reports: None - Past Surgical History Cardiovascular Surgical History: Reports: Aneurysm Musculoskeletal Surgical History: Reports: ORIF - SUBSTANCE USE Smoking Status *Q: Current Every Day Smoker Recreational Drug Use History: No - HOME MEDS Home Medications: Home Meds Metoprolol Succinate [Toprol XL 50mg] 50 mg PO DAILY 12/16/19 [History] Omeprazole 20 mg PO DAILY 12/16/19 [History] Rosuvastatin Calcium 20 mg PO DAILY 12/17/19 [History] <aZchary Washington - Last Filed: 12/19/19 10:29> Preanesthetic Assessment - Anesthesia/Transfusion/Family Hx Anesthesia History: Prior Anesthesia Without Reaction Family History of Anesthesia Reaction: No Transfusion History: No Prior Transfusion(s) Additional History: 12/19/2019 stress test (lexicon) this am with no definitive ischemia. - Review of Systems General: Weakness, Fatigue Pulmonary: Shortness of Breath, Cough Cardiovascular: No Symptoms, Other Gastrointestinal: Nausea, Vomiting, Other Neurological: No Symptoms Other: Reports: None - Physical Assessment NPO Status Date: 12/18/19 NPO Status Time: 00:00 ASA Class: 3 Airway Class: Mallampati = 2 Dentition: Reports: Missing Tooth/Teeth, Caries ROM/Head Extension: Full Lungs: Clear to Auscultation, Normal Respiratory Effort Cardiovascular: Regular Rate, Regular Rhythm - Anesthesia Plan Pre-Op Medication Ordered: None - Acknowledgements Anesthesia Type Planned: MAC Pt an Appropriate Candidate for the Planned Anesthesia: Yes Alternatives and Risks of Anesthesia Discussed w Pt/Guardian: Yes Pt/Guardian Understands and Agrees with Anesthesia Plan: Yes <Eliz Anthony - Last Filed: 12/19/19 12:40> Preanesthetic Assessment - Review of Systems Cardiovascular: No Symptoms (Cardiolite Stress Test: Findings which are felt compatible with previous infarct within the lateral wall extending into the apex. No findings of reversible ischemia are seen. Low EF =45%) - Physical Assessment Vital Signs: Last Vital Signs Temp 36.7 C 12/19/19 09:46 Pulse 62 12/19/19 09:46 Resp 20 12/19/19 09:46 BP 140/76 12/19/19 09:46 Pulse Ox 98 12/19/19 09:46 Orthostatic Blood Pressure [ 146/92 Sitting] Orthostatic Blood Pressure [ 150/85 Supine] - Lab Values: Laboratory Last Values WBC 9.14 K/mm3 (4.23-9.07) H 12/19/19 04:30 RBC 4.27 M/mm3 (4.63-6.08) L 12/19/19 04:30 Hgb 12.3 gm/dl (13.7-17.5) L 12/19/19 04:30 Hct 38.7 % (40.1-51.0) L 12/19/19 04:30 MCV 90.6 fl (79.0-92.2) 12/19/19 04:30 MCH 28.8 pg (25.7-32.2) 12/19/19 04:30 MCHC 31.8 g/dl (32.2-35.5) L 12/19/19 04:30 RDW Std Deviation 49.7 fL (35.1-43.9) H 12/19/19 04:30 Plt Count 125 K/mm3 (163-337) L 12/19/19 04:30 MPV 12.8 fl (9.4-12.3) H 12/19/19 04:30 Neut % (Auto) 72.9 % (34.0-67.9) H 12/19/19 04:30 Lymph % (Auto) 11.7 % (21.8-53.1) L 12/19/19 04:30 Douglas % (Auto) 11.4 % (5.3-12.2) 12/19/19 04:30 Eos % (Auto) 3.7 (0.8-7.0) 12/19/19 04:30 Baso % (Auto) 0.2 % (0.1-1.2) 12/19/19 04:30 Neut # (Auto) 6.66 K/mm3 (1.78-5.38) H 12/19/19 04:30 Lymph # (Auto) 1.07 K/mm3 (1.32-3.57) L 12/19/19 04:30 Douglas # (Auto) 1.04 K/mm3 (0.30-0.82) H 12/19/19 04:30 Eos # (Auto) 0.34 K/mm3 (0.04-0.54) 12/19/19 04:30 Baso # (Auto) 0.02 K/mm3 (0.01-0.08) 12/19/19 04:30 Neutrophils % (Manual) 85 % (40-60) H 12/16/19 19:00 Band Neutrophils % 0 % (0-10) 12/16/19 19:00 Lymphocytes % (Manual) 9 % (20-40) L 12/16/19 19:00 Atypical Lymphs % 1 % 12/16/19 19:00 Monocytes % (Manual) 5 % (2-10) 12/16/19 19:00 Eosinophils % (Manual) 0 % (0.8-7.0) L 12/16/19 19:00 Basophils % (Manual) 0 (0.2-1.2) L 12/16/19 19:00 Manual Slide Review Not Reportable 12/19/19 04:30 Platelet Estimate Adequate 12/16/19 19:00 RBC Morph Comment Normal 12/16/19 19:00 PT 12.8 SECONDS (9.7-11.7) H 12/16/19 19:00 INR 1.20 12/16/19 19:00 Sodium 145 mEq/L (136-145) 12/19/19 04:30 Potassium 3.4 mEq/L (3.5-5.1) L 12/19/19 04:30 Chloride 112 mEq/L (98-107) H 12/19/19 04:30 Carbon Dioxide 23 mEq/L (21-32) 12/19/19 04:30 Anion Gap 13.4 (5-15) 12/19/19 04:30 BUN 41 mg/dL (7-18) H 12/19/19 04:30 Creatinine 1.4 mg/dL (0.7-1.3) H 12/19/19 04:30 Est Cr Clr Drug Dosing 43.06 mL/min 12/19/19 04:30 Estimated GFR (MDRD) 51 mL/min (>60) 12/19/19 04:30 BUN/Creatinine Ratio 29.3 (14-18) H 12/19/19 04:30 Glucose 131 mg/dL (80-115) H 12/19/19 04:30 Lactic Acid 1.7 mmol/L (0.4-2.0) 12/16/19 19:00 Calcium 8.4 mg/dL (8.5-10.1) L 12/19/19 04:30 Phosphorus 1.2 mg/dL (2.6-4.7) L 12/19/19 04:30 Magnesium 2.2 mg/dl (1.8-2.4) 12/19/19 04:30 Total Bilirubin 0.8 mg/dL (0.2-1.0) 12/19/19 04:30 AST 21 U/L (15-37) 12/19/19 04:30 ALT 12 U/L (16-63) L 12/19/19 04:30 Alkaline Phosphatase 56 U/L (46-116) 12/19/19 04:30 Creatine Kinase 100 U/L (39-308) 12/16/19 19:00 Troponin I 0.067 ng/mL (0.00-0.056) H* 12/18/19 08:33 C-Reactive Protein 0.7 mg/dL (<1.0) 12/16/19 19:00 Total Protein 5.1 g/dl (6.4-8.2) L 12/19/19 04:30 Albumin 2.6 g/dl (3.4-5.0) L 12/19/19 04:30 Globulin 2.5 gm/dL 12/19/19 04:30 Albumin/Globulin Ratio 1.0 (1-2) 12/19/19 04:30 PSA Screen 0.4 ng/mL (0.0-4.0) 12/17/19 04:00 Procalcitonin 0.09 ng/mL (<0.10) 12/16/19 19:00 TSH 3rd Generation 0.955 uIU/mL (0.358-3.74) 12/16/19 19:00 Urine Color Yellow (Yellow) 12/16/19 22:00 Urine Appearance Clear (Clear) 12/16/19 22:00 Urine pH 5.5 (5.0-8.0) 12/16/19 22:00 Ur Specific Langston 1.020 (1.005-1.030) 12/16/19 22:00 Urine Protein Trace (Negative) H 12/16/19 22:00 Urine Glucose (UA) Negative (Negative) 12/16/19 22:00 Urine Ketones Negative (Negative) 12/16/19 22:00 Urine Occult Blood Negative (Negative) 12/16/19 22:00 Urine Nitrite Negative (Negative) 12/16/19 22:00 Urine Bilirubin 1+ (Negative) H 12/16/19 22:00 Urine Urobilinogen 0.2 (0.2-1.0) 12/16/19 22:00 Ur Leukocyte Esterase Negative (Negative) 12/16/19 22:00 U Hyaline Cast (Auto) 30-40 /lpf (0-5) H 12/16/19 22:00 Urine RBC Not seen /hpf (0-5) 12/16/19 22:00 Urine WBC 0-5 /hpf (0-5) 12/16/19 22:00 Ur Epithelial Cells Not seen /hpf (0-5) 12/16/19 22:00 Urine Bacteria Few /hpf (FEW) 12/16/19 22:00 Urine Mucus Few /hpf (FEW) 12/16/19 22:00 COVID-19 (KATELYN) Negative (NEGATIVE) 12/16/19 20:09 PreAnesthesia Questionnaire - CURRENT (IN HOUSE) MEDS Current Meds: Current Medications Acetaminophen (Tylenol) 650 mg PO Q4H PRN PRN Reason: Pain (Mild 1-3)/fever Enoxaparin Sodium (Lovenox) 40 mg SUBCUT DAILY [facility] Promethazine HCl 12.5 mg/ (Sodium Chloride) 50.5 mls @ 100 mls/hr IV Q6H PRN PRN Reason: Nausea/Vomiting Last Admin: 12/17/19 09:41 Dose: 100 mls/hr Documented by: Potassium Phosphate 30 mmole/ (Sodium Chloride) 510 mls @ 102 mls/hr IV ONETIME ONE Stop: 12/19/19 14:29 Last Admin: 12/19/19 10:40 Dose: 102 mls/hr Documented by: Miscellaneous Information (Remove Patch) 1 ea TRDERM DAILY [facility] Last Admin: 12/18/19 09:00 Dose: 1 ea Documented by: Nicotine (Habitrol) 21 mg TRDERM DAILY [facility] Last Admin: 12/18/19 08:31 Dose: 21 mg Documented by: Nystatin (Nystatin Oral Syringe) 500,000 unit PO TID [facility] Last Admin: 12/18/19 21:06 Dose: 500,000 unit Documented by: Ondansetron HCl (Zofran) 4 mg IV Q4H PRN PRN Reason: Nausea/Vomiting Pantoprazole Sodium (Protonix Iv) 40 mg IVPUSH Q12H [facility] Last Admin: 12/18/19 21:05 Dose: 40 mg Documented by: Rosuvastatin Calcium (Crestor) 20 mg PO DAILY [facility] Last Admin: 12/18/19 08:27 Dose: 20 mg Documented by: Sodium Chloride (Saline Flush) 10 ml FLUSH ASDIRECTED PRN PRN Reason: Keep Vein Open Last Admin: 12/16/19 19:56 Dose: 10 ml Documented by: Discontinued Medications Enoxaparin Sodium (Lovenox) 30 mg SUBCUT DAILY [facility] Last Admin: 12/18/19 08:27 Dose: 30 mg Documented by: Fentanyl (Sublimaze) Confirm Administered Dose 100 mcg .ROUTE .STK-MED ONE Stop: 12/19/19 10:53 Sodium Chloride (Normal Saline) 1,000 mls @ 999 mls/hr IV BOLUS ONE; Protocol Stop: 12/16/19 19:51 Last Admin: 12/16/19 19:03 Dose: 999 mls/hr Documented by: Dextrose/Water (Dextrose 5% In Water) 1,000 mls @ 250 mls/hr IV ASDIRECTED [facility] Last Admin: 12/16/19 22:19 Dose: 250 mls/hr Documented by: Sodium Chloride (Normal Saline) 1,000 mls @ 250 mls/hr IV ASDIRECTED [facility] Last Admin: 12/17/19 02:00 Dose: 250 mls/hr Documented by: Potassium Chloride 10 meq/ (Premix) 100 mls @ 100 mls/hr IV Q1H [facility] Stop: 12/17/19 03:59 Last Admin: 12/17/19 03:07 Dose: 100 mls/hr Documented by: Lactated Ringer's (Ringers, Lactated) 1,000 mls @ 250 mls/hr IV ASDIRECTED [facility] Stop: 12/17/19 13:14 Last Admin: 12/17/19 09:25 Dose: 250 mls/hr Documented by: Lactated Ringer's (Ringers, Lactated) 1,000 mls @ 150 mls/hr IV ASDIRECTED [facility] Last Admin: 12/18/19 05:46 Dose: 150 mls/hr Documented by: Potassium Chloride 20 meq/ (Dextrose/Water) 1,010 mls @ 126.25 mls/hr IV ASDIRECTED [facility] Last Admin: 12/18/19 18:51 Dose: 126.25 mls/hr Documented by: Potassium Chloride 10 meq/ (Premix) 100 mls @ 100 mls/hr IV Q1H [facility] Stop: 12/18/19 11:59 Last Admin: 12/18/19 11:55 Dose: 100 mls/hr Documented by: Lactated Ringer's (Ringers, Lactated) Confirm Administered Dose 1,000 mls @ as directed .ROUTE .STK-MED ONE Stop: 12/19/19 10:52 Iopamidol (Isovue-300 (61%)) 100 ml IVPUSH ONETIME ONE Stop: 12/16/19 19:58 Last Admin: 12/16/19 19:57 Dose: 100 ml Documented by: Lidocaine HCl (Lidocaine 1%) Confirm Administered Dose 4 ml .ROUTE .STK-MED ONE Stop: 12/19/19 10:52 Propofol (Diprivan 20 Ml) Confirm Administered Dose 200 mg .ROUTE .STK-MED ONE Stop: 12/19/19 10:53 Regadenoson (Lexiscan) 0.4 mg IVPUSH ONETIME ONE Stop: 12/19/19 07:01 Last Admin: 12/19/19 06:55 Dose: 0.4 mg Documented by:
--- NOTE | 2019-12-18 15:36 | PCM.PN ---
- General Info Date of Service: 12/18/19 Admission Dx/Problem (Free Text): Admission Diagnosis/Problem Admission Diagnosis/Problem Dehydration Subjective Update: Patient is feeling much better today. He did try drinking a clear liquid diet but continued to vomit. Sodium continues to be significantly elevated. No bowel movement. Functional Status: Reports: Pain Controlled - Review of Systems General: Reports: No Symptoms HEENT: Reports: No Symptoms Pulmonary: Reports: No Symptoms Cardiovascular: Reports: No Symptoms Gastrointestinal: Reports: Vomiting. Denies: Abdominal Pain Musculoskeletal: Reports: No Symptoms - Patient Data Vitals - Most Recent: Last Vital Signs Temp 98.4 F 12/18/19 08:00 Pulse 67 12/18/19 08:00 Resp 16 12/18/19 08:00 BP 110/81 12/18/19 08:00 Pulse Ox 98 12/18/19 08:00 Orthostatic Blood Pressure [ 146/92 Sitting] Orthostatic Blood Pressure [ 150/85 Supine] Weight - Most Recent: 57.742 kg I&O - Last 24 Hours: Intake & Output 12/18/19 12/18/19 12/18/19 06:59 14:59 22:59 Intake Total 1803 Output Total 490 815 Balance 1313 -815 Lab Results Last 24 Hours: Laboratory Results - last 24 hr 12/18/19 12/18/19 12/18/19 Range/Units 05:31 05:31 08:33 WBC 9.72 H (4.23-9.07) K/mm3 RBC 4.38 L (4.63-6.08) M/mm3 Hgb 12.7 L D (13.7-17.5) gm/dl Hct 39.7 L (40.1-51.0) % MCV 90.6 D (79.0-92.2) fl MCH 29.0 (25.7-32.2) pg MCHC 32.0 L (32.2-35.5) g/dl RDW Std Deviation 49.5 H (35.1-43.9) fL Plt Count 129 L (163-337) K/mm3 MPV 12.4 H (9.4-12.3) fl Neut % (Auto) 74.3 H (34.0-67.9) % Lymph % (Auto) 11.6 L (21.8-53.1) % Newton % (Auto) 10.5 (5.3-12.2) % Eos % (Auto) 3.3 (0.8-7.0) Baso % (Auto) 0.2 (0.1-1.2) % Neut # (Auto) 7.22 H (1.78-5.38) K/mm3 Lymph # (Auto) 1.13 L (1.32-3.57) K/mm3 [place] # (Auto) 1.02 H (0.30-0.82) K/mm3 Eos # (Auto) 0.32 (0.04-0.54) K/mm3 Baso # (Auto) 0.02 (0.01-0.08) K/mm3 Sodium 152 H (136-145) mEq/L Potassium 3.1 L (3.5-5.1) mEq/L Chloride 116 H (98-107) mEq/L Carbon Dioxide 24 (21-32) mEq/L Anion Gap 15.1 H (5-15) BUN 63 H D (7-18) mg/dL Creatinine 1.8 H (0.7-1.3) mg/dL Est Cr Clr Drug Dosing 33.42 mL/min Estimated GFR (MDRD) 38 (>60) mL/min BUN/Creatinine Ratio 35.0 H (14-18) Glucose 89 (80-115) mg/dL Calcium 8.9 (8.5-10.1) mg/dL Phosphorus 2.1 L (2.6-4.7) mg/dL Magnesium 2.7 H (1.8-2.4) mg/dl Total Bilirubin 0.9 (0.2-1.0) mg/dL AST 20 (15-37) U/L ALT 10 L (16-63) U/L Alkaline Phosphatase 56 (46-116) U/L Troponin I 0.067 H* (0.00-0.056) ng/mL Total Protein 5.1 L (6.4-8.2) g/dl Albumin 2.7 L (3.4-5.0) g/dl Globulin 2.4 gm/dL Albumin/Globulin Ratio 1.1 (1-2) Pito Results Last 24 Hours: Microbiology 12/16/19 19:00 Aerobic Blood Culture - Preliminary Blood - Venous NO GROWTH AFTER 1 DAY Anaerobic Blood Culture - Preliminary NO GROWTH AFTER 1 DAY 12/16/19 19:15 Aerobic Blood Culture - Preliminary Blood - Venous - Lab Draw NO GROWTH AFTER 1 DAY Anaerobic Blood Culture - Preliminary NO GROWTH AFTER 1 DAY Med Orders - Current: Current Medications Acetaminophen (Tylenol) 650 mg PO Q4H PRN PRN Reason: Pain (Mild 1-3)/fever Enoxaparin Sodium (Lovenox) 40 mg SUBCUT DAILY [facility] Promethazine HCl 12.5 mg/ (Sodium Chloride) 50.5 mls @ 100 mls/hr IV Q6H PRN PRN Reason: Nausea/Vomiting Last Admin: 12/17/19 09:41 Dose: 100 mls/hr Documented by: Potassium Chloride 20 meq/ (Dextrose/Water) 1,010 mls @ 126.25 mls/hr IV ASDIRECTED [facility] Last Admin: 12/18/19 09:10 Dose: 126.25 mls/hr Documented by: Miscellaneous Information (Remove Patch) 1 ea TRDERM DAILY [facility] Last Admin: 12/18/19 09:00 Dose: 1 ea Documented by: Nicotine (Habitrol) 21 mg TRDERM DAILY [facility] Last Admin: 12/18/19 08:31 Dose: 21 mg Documented by: Nystatin (Nystatin Oral Syringe) 500,000 unit PO TID [facility] Last Admin: 12/18/19 08:27 Dose: 500,000 unit Documented by: Ondansetron HCl (Zofran) 4 mg IV Q4H PRN PRN Reason: Nausea/Vomiting Pantoprazole Sodium (Protonix Iv) 40 mg IVPUSH Q12H [facility] Last Admin: 12/18/19 08:33 Dose: 40 mg Documented by: Regadenoson (Lexiscan) 0.4 mg IVPUSH ONETIME ONE Stop: 12/19/19 07:01 Rosuvastatin Calcium (Crestor) 20 mg PO DAILY [facility] Last Admin: 12/18/19 08:27 Dose: 20 mg Documented by: Sodium Chloride (Saline Flush) 10 ml FLUSH ASDIRECTED PRN PRN Reason: Keep Vein Open Last Admin: 12/16/19 19:56 Dose: 10 ml Documented by: Discontinued Medications Enoxaparin Sodium (Lovenox) 30 mg SUBCUT DAILY [facility] Last Admin: 12/18/19 08:27 Dose: 30 mg Documented by: Sodium Chloride (Normal Saline) 1,000 mls @ 999 mls/hr IV BOLUS ONE; Protocol Stop: 12/16/19 19:51 Last Admin: 12/16/19 19:03 Dose: 999 mls/hr Documented by: Dextrose/Water (Dextrose 5% In Water) 1,000 mls @ 250 mls/hr IV ASDIRECTED [facility] Last Admin: 12/16/19 22:19 Dose: 250 mls/hr Documented by: Sodium Chloride (Normal Saline) 1,000 mls @ 250 mls/hr IV ASDIRECTED [facility] Last Admin: 12/17/19 02:00 Dose: 250 mls/hr Documented by: Potassium Chloride 10 meq/ (Premix) 100 mls @ 100 mls/hr IV Q1H [facility] Stop: 12/17/19 03:59 Last Admin: 12/17/19 03:07 Dose: 100 mls/hr Documented by: Lactated Ringer's (Ringers, Lactated) 1,000 [facility]ls [facility]: 12/17/19 13:14 Last Admin: 12/17/19 09:25 Dose: 250 mls/hr Documented by: Lactated Ringer's (Ringers, Lactated) 1,000 mls @ [facility] Admin: 12/18/19 05:46 Dose: 150 mls/hr Documented by: Potassium Chloride 10 meq/ (Premix) 100 mls @ 100 mls/hr IV Q1H [facility] Stop: 12/18/19 11:59 Last Admin: 12/18/19 11:55 Dose: 100 mls/hr Documented by: Iopamidol (Isovue-300 (61%)) 100 ml IVPUSH ONETIME ONE Stop: 12/16/19 19:58 Last Admin: 12/16/19 19:57 Dose: 100 ml Documented by: - Exam Quality Assessment: No: Supplemental Oxygen General: Alert, Oriented HEENT: Pupils Equal, Mucous Membr. Moist/Cos Cob Neck: Supple Lungs: Clear to Auscultation, Normal Respiratory Effort Cardiovascular: Regular Rate, Regular Rhythm GI/Abdominal Exam: Normal Bowel Sounds, Soft, Non-Tender, No Distention Extremities: Normal Inspection, Normal Range of Motion, Non-Tender, No Pedal Edema, Normal Capillary Refill Peripheral Pulses: 1+: Posterior Tibial (L), Posterior Tibial (R), Dorsalis Pedis (L), Dorsalis Pedis (R) Skin: Warm, Dry, Intact Neurological: No New Focal Deficit Psy/Mental Status: Alert, Normal Affect, Normal Mood Sepsis Event Note - Evaluation Sepsis Screening Result: No Definite Risk - Focused Exam Vital Signs: Vital Signs Temp Pulse Resp BP Pulse Ox 12/18/19 08:00 98.4 F 67 16 110/81 98 12/18/19 04:00 97.7 F 60 14 120/72 97 - Problem List & Annotations (1) Thrush, oral SNOMED Code(s): 86727677 Code(s): B37.0 - CANDIDAL STOMATITIS Status: Acute Current Visit: Yes (2) COPD (chronic obstructive pulmonary disease) SNOMED Code(s): 59111872 Code(s): J44.9 - CHRONIC OBSTRUCTIVE PULMONARY DISEASE, UNSPECIFIED Status: Acute Current Visit: Yes (3) Tobacco dependence SNOMED Code(s): 70837386 Code(s): F17.200 - NICOTINE DEPENDENCE, UNSPECIFIED, UNCOMPLICATED Status: Acute Current Visit: Yes (4) Acute on chronic renal failure SNOMED Code(s): 570621388 Code(s): N17.9 - ACUTE KIDNEY FAILURE, UNSPECIFIED; N18.9 - CHRONIC KIDNEY DISEASE, UNSPECIFIED Status: Acute Current Visit: Yes (5) Urinary retention SNOMED Code(s): 213378193 Code(s): R33.9 - RETENTION OF URINE, UNSPECIFIED Status: Acute Current Visit: Yes (6) Nausea & vomiting SNOMED Code(s): 27806291 Code(s): R11.2 - NAUSEA WITH VOMITING, UNSPECIFIED Status: Acute Current Visit: No (7) Weight loss SNOMED Code(s): 12696960, 744588721 Code(s): R63.4 - ABNORMAL WEIGHT LOSS Status: Acute Current Visit: No (8) Hypernatremia SNOMED Code(s): 179476611 Code(s): E87.0 - HYPEROSMOLALITY AND HYPERNATREMIA Status: Acute Current Visit: Yes (9) Cystic kidney disease, unspecified Status: Acute Current Visit: Yes - Problem List Review Problem List Initiated/Reviewed/Updated: Yes - My Orders Last 24 Hours: My Active Orders 12/17/19 17:12 Notify Provider Consults [RC] ASDIRECTED 12/17/19 17:22 H PYLORI STOOL ANTIGEN [MREF] Routine OCCULT BLOOD SCREEN [OP] Routine 12/17/19 21:00 Nystatin [Nystatin Oral Syringe] 500,000 unit PO TID 12/18/19 07:00 Consult to Physician [CONS] Routine 12/18/19 09:00 Potassium Chloride 20 meq Dextrose 5% in Water 1,000 ml IV ASDIRECTED Remove Patch 1 ea TRDERM DAILY Rosuvastatin [Crestor] 20 mg PO DAILY 12/18/19 16:00 BASIC METABOLIC PANEL,BMP [CHEM] Routine CBC WITH AUTO DIFF [HEME] Routine 12/18/19 Dinner Clear Liquid Diet [DIET] 12/19/19 05:11 CBC WITH AUTO DIFF [HEME] AM COMPREHENSIVE METABOLIC PN,CMP [CHEM] AM MAGNESIUM [CHEM] AM PHOSPHORUS [CHEM] AM 12/19/19 09:00 Enoxaparin [Lovenox] 40 mg SUBCUT DAILY - Assessment Assessment:: 12/17/2019 4-week history of vomiting Leukocytosis * Patient has had a 4-week history of vomiting without diagnosis. He is a nondrinker, does not use marijuana or other drugs, does have his gallbladder, has never had an upper or lower endoscopy. Father did of an unknown cancer, question skin cancer that went to his liver. * CT of the abdomen with gastric and duodenal wall thickening. Nondilated thickened small bowel loops. Possible wall thickening of the distal descending and sigmoid colon. * Ultrasound of the abdomen did show biliary sludge and a complex renal cyst. No dilation in the common bile duct. * He has never had an episode like this in the past. * Elevated WBC likely secondary to stress Dehydration/hypovolemia/acute renal injury/hypernatremia * Patient is severely volume depleted and has already received over 3 L of fluid. * Renal function has made a significant improvement. * BUN is down to 93 and creatinine down to 2.3. Sodium is back up to 148. Elevated troponin Likely subacute type 2 HI Hypertension History of abdominal aortic aneurysm leak with stent Left bundle branch block * Patient did have symptoms over the last couple of weeks. * Has a history of left bundle branch block * Has a history of abdominal aortic aneurysm with stent * Patient likely had an oxygen supply/demand mismatch secondary to severe hypovolemia and vomiting. * He is on metoprolol as outpatient Complicated cyst within each kidney * Seen on ultrasound and CT scan. * Radiology recommends MRI of the kidneys. COPD/tobaccoism * Chest x-ray shows overinflated lungs. Nothing acute. * Not short of breath and not on any inhalers. Oral thrush * Patient is significantly dry mouth and symptoms of burning. He also has red oral mucosa with white patches on his tongue. 12/18/2019 * Elian continues to vomit after even clear liquids. * Sodium continues to increase and potassium and phosphorus are low. * He continues with significant renal dysfunction, but it has improved. * Troponin has also improved to 0.067. This is likely more due to improvement in renal function than any recent cardiac event. * Dr. Benson is planning on doing an upper endoscopy, but we are going to do a Amanda scan stress test in the morning prior to anesthesia. * Blood pressure well controlled over the last 24 hours. T-max 98.6. * Improvement in oral symptoms. * BUN 63, creatinine 1.8. * Sodium 152 * Potassium 3.1 * Albumin 2.7 - Plan Plan:: Plan * Continue IV rehydration but switch to D5W with 20 mEq of KCl per liter at 125 mL/h. * Clear liquid diet * Lexiscan in the morning if negative will proceed to upper endoscopy. * MRI of the kidneys without contrast * Zofran and Phenergan for nausea as needed * Follow CBC, CMP, mag, phosphorus * Nicotine patch * Nystatin orally for thrush * H pylori stool antigen * Stool for occult blood * Pantoprazole 40 mg IV every 12 hours. * PT eval and treat. * Follow-up blood cultures. * Follow-up on procalcitonin. * Continue statin. * Restart if needed metoprolol. * VTE prophylaxis with Lovenox * CODE STATUS full code * Disposition: Admit to medical inpatient status. Length of stay likely 2 to 3 days.
--- NOTE | 2019-12-18 18:03 | PCM.CONS ---
H&P History of Present Illness - General Date of Service: 12/18/19 Admit Problem/Dx: Admission Diagnosis/Problem Admission Diagnosis/Problem Dehydration Source of Information: Patient, Provider History Limitations: Reports: No Limitations - History of Present Illness Initial Comments - Free Text/Narative: Pt reports 2 weeks of vomiting with associated weight loss. He denies any sick contacts. He denies any diarrhea or constipation. No melena or hematochezia. he denies any abdominal pain. Per nursing, pt has been able to tolerate a small amount of clear liquids today. He voiced his frustration about the length of time spent in the hospital and wants to have more answers about what is wrong with his health. - Related Data Allergies/Adverse Reactions: Allergies Allergy/AdvReac Type Severity Reaction Status Date / Time No Known Allergies Allergy Verified 12/16/19 18:06 Home Medications: Home Meds Metoprolol Succinate [Toprol XL 50mg] 50 mg PO DAILY 12/16/19 [History] Omeprazole 20 mg PO DAILY 12/16/19 [History] Rosuvastatin Calcium 20 mg PO DAILY 12/17/19 [History] Past Medical History HEENT History: Reports: Impaired Vision Cardiovascular History: Reports: High Cholesterol, Hypertension, PVD Respiratory History: Reports: None Gastrointestinal History: Reports: None Genitourinary History: Reports: None Musculoskeletal History: Reports: Fracture, Gout Neurological History: Reports: None Psychiatric History: Reports: None Endocrine/Metabolic History: Reports: Hypokalemia Hematologic History: Reports: None Immunologic History: Reports: None Oncologic (Cancer) History: Reports: None Dermatologic History: Reports: None - Infectious Disease History Infectious Disease History: Reports: None - Past Surgical History Cardiovascular Surgical History: Reports: Aneurysm Musculoskeletal Surgical History: Reports: ORIF Social & Family History - Family History Family Medical History: Noncontributory - Tobacco Use Smoking Status *Q: Current Every Day Smoker Years of Tobacco use: 30 Packs/Tins Daily: 1.5 Tobacco Use Comment: has been cutting back - Caffeine Use Caffeine Use: Reports: Coffee - Recreational Drug Use Recreational Drug Use: No - Living Situation & Occupation Living situation: Reports: , Alone 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) H&P Review of Systems - Review of Systems: Review Of Systems: See Below General: Reports: Weight Loss HEENT: Reports: No Symptoms Pulmonary: Reports: No Symptoms Cardiovascular: Reports: No Symptoms Gastrointestinal: Reports: Nausea, Vomiting Genitourinary: Reports: No Symptoms Musculoskeletal: Reports: No Symptoms Skin: Reports: No Symptoms Neurological: Reports: No Symptoms Hematologic/Lymphatic: Reports: No Symptoms Exam - Exam Exam: See Below - Vital Signs Vital Signs: Last Vital Signs Temp 37.5 C 12/18/19 16:00 Pulse 94 12/18/19 16:00 Resp 22 H 12/18/19 16:00 BP 128/77 12/18/19 16:00 Pulse Ox 99 12/18/19 16:00 Orthostatic Blood Pressure [ 146/92 Sitting] Orthostatic Blood Pressure [ 150/85 Supine] Weight: 57.742 kg - Exam Quality Assessment: No: Supplemental Oxygen General: Alert, Oriented HEENT: EOMI Neck: Supple Lungs: Normal Respiratory Effort Cardiovascular: Regular Rate, Regular Rhythm GI/Abdominal Exam: Soft, Non-Tender, No Distention Skin: Warm, Dry, Intact Neurological: Cranial Nerves Intact Neuro Extensive - Mental Status: Oriented x3, Normal Mood/Affect - Patient Data Lab Results Last 24 hrs: Laboratory Results - last 24 hr 12/18/19 12/18/19 12/18/19 Range/Units 05:31 05:31 08:33 WBC 9.72 H (4.23-9.07) K/mm3 RBC 4.38 L (4.63-6.08) M/mm3 Hgb 12.7 L D (13.7-17.5) gm/dl Hct 39.7 L (40.1-51.0) % MCV 90.6 D (79.0-92.2) fl MCH 29.0 (25.7-32.2) pg MCHC 32.0 L (32.2-35.5) g/dl RDW Std Deviation 49.5 H (35.1-43.9) fL Plt Count 129 L (163-337) K/mm3 MPV 12.4 H (9.4-12.3) fl Neut % (Auto) 74.3 H (34.0-67.9) % Lymph % (Auto) 11.6 L (21.8-53.1) % [place] % (Auto) 10.5 (5.3-12.2) % Eos % (Auto) 3.3 (0.8-7.0) Baso % (Auto) 0.2 (0.1-1.2) % Neut # (Auto) 7.22 H (1.78-5.38) K/mm3 Lymph # (Auto) 1.13 L (1.32-3.57) K/mm3 [place] # (Auto) 1.02 H (0.30-0.82) K/mm3 Eos # (Auto) 0.32 (0.04-0.54) K/mm3 Baso # (Auto) 0.02 (0.01-0.08) K/mm3 Sodium 152 H (136-145) mEq/L Potassium 3.1 L (3.5-5.1) mEq/L Chloride 116 H (98-107) mEq/L Carbon Dioxide 24 (21-32) mEq/L Anion Gap 15.1 H (5-15) BUN 63 H D (7-18) mg/dL Creatinine 1.8 H (0.7-1.3) mg/dL Est Cr Clr Drug Dosing 33.42 mL/min Estimated GFR (MDRD) 38 (>60) mL/min BUN/Creatinine Ratio 35.0 H (14-18) Glucose 89 (80-115) mg/dL Calcium 8.9 (8.5-10.1) mg/dL Phosphorus 2.1 L (2.6-4.7) mg/dL Magnesium 2.7 H (1.8-2.4) mg/dl Total Bilirubin 0.9 (0.2-1.0) mg/dL AST 20 (15-37) U/L ALT 10 L (16-63) U/L Alkaline Phosphatase 56 (46-116) U/L Troponin I 0.067 H* (0.00-0.056) ng/mL Total Protein 5.1 L (6.4-8.2) g/dl Albumin 2.7 L (3.4-5.0) g/dl Globulin 2.4 gm/dL Albumin/Globulin Ratio 1.1 (1-2) 12/18/19 12/18/19 Range/Units 16:25 16:25 WBC 9.10 H (4.23-9.07) K/mm3 RBC 4.46 L (4.63-6.08) M/mm3 Hgb 12.9 L (13.7-17.5) gm/dl Hct 40.5 (40.1-51.0) % MCV 90.8 (79.0-92.2) fl MCH 28.9 (25.7-32.2) pg MCHC 31.9 L (32.2-35.5) g/dl RDW Std Deviation 50.3 H (35.1-43.9) fL Plt Count 133 L (163-337) K/mm3 MPV 12.4 H (9.4-12.3) fl Neut % (Auto) 73.9 H (34.0-67.9) % Lymph % (Auto) 12.3 L (21.8-53.1) % [place] % (Auto) 10.8 (5.3-12.2) % Eos % (Auto) 2.6 (0.8-7.0) Baso % (Auto) 0.2 (0.1-1.2) % Neut # (Auto) 6.72 H (1.78-5.38) K/mm3 Lymph # (Auto) 1.12 L (1.32-3.57) K/mm3 [place] # (Auto) 0.98 H (0.30-0.82) K/mm3 Eos # (Auto) 0.24 (0.04-0.54) K/mm3 Baso # (Auto) 0.02 (0.01-0.08) K/mm3 Sodium 147 H (136-145) mEq/L Potassium 3.5 (3.5-5.1) mEq/L Chloride 115 H (98-107) mEq/L Carbon Dioxide 24 (21-32) mEq/L Anion Gap 11.5 (5-15) BUN 53 H (7-18) mg/dL Creatinine 1.7 H (0.7-1.3) mg/dL Est Cr Clr Drug Dosing 35.38 mL/min Estimated GFR (MDRD) 41 (>60) mL/min BUN/Creatinine Ratio 31.2 H (14-18) Glucose 136 H (80-115) mg/dL Calcium 8.7 (8.5-10.1) mg/dL Phosphorus (2.6-4.7) mg/dL Magnesium (1.8-2.4) mg/dl Total Bilirubin (0.2-1.0) mg/dL AST (15-37) U/L ALT (16-63) U/L Alkaline Phosphatase (46-116) U/L Troponin I (0.00-0.056) ng/mL Total Protein (6.4-8.2) g/dl Albumin (3.4-5.0) g/dl Globulin gm/dL Albumin/Globulin Ratio (1-2) Result Diagrams: 12/18/19 16:25 12/18/19 16:25 Pito Results Last 24 hrs: Microbiology 12/16/19 19:00 Aerobic Blood Culture - Preliminary Blood - Venous NO GROWTH AFTER 1 DAY Anaerobic Blood Culture - Preliminary NO GROWTH AFTER 1 DAY 12/16/19 19:15 Aerobic Blood Culture - Preliminary Blood - Venous - Lab Draw NO GROWTH AFTER 1 DAY Anaerobic Blood Culture - Preliminary NO GROWTH AFTER 1 DAY Sepsis Event Note - Evaluation Sepsis Screening Result: No Definite Risk - Focused Exam Vital Signs: Vital Signs Temp Pulse Resp BP Pulse Ox 12/18/19 16:00 37.5 C 94 22 H 128/77 99 12/18/19 08:00 36.9 C 67 16 110/81 98 *Q Meaningful Use (ADM) - VTE Risk Assess *Q Each Risk Factor Represents 1 Point: Acute myocardial infarction Total Score 1 Point Risk Factors: 1 Each Risk Factor Represents 2 Points: Age 60 - 74 Years Total Score 2 Point Risk Factors: 2 Consult PN Assessment/Plan Procedures: Procedures ALANINE AMINO (ALT) (SGPT) (11/10/16) ASSAY OF CK (CPK) (12/15/18) ASSAY OF FERRITIN (12/04/19) ASSAY OF TROPONIN QUANT (12/04/19) ASSAY THYROID STIM HORMONE (05/25/16) AUTOMATED RETICULOCYTE COUNT (11/10/16) BL SMEAR W/DIFF WBC COUNT (11/10/16) C-REACTIVE PROTEIN (12/04/19) CHEST X-RAY 2VW FRONTAL&LATL (05/19/16) COMPLETE CBC AUTOMATED (12/15/18) COMPLETE CBC W/AUTO DIFF WBC (12/04/19) COMPREHEN METABOLIC PANEL (12/04/19) ELECTROCARDIOGRAM TRACING (12/04/19) EMERGENCY DEPT VISIT (12/04/19) HYDRATE IV INFUSION ADD-ON (12/04/19) HYDRATION IV INFUSION INIT (12/04/19) LACTATE (LD) (LDH) ENZYME (12/04/19) LIPID PANEL (12/15/18) METABOLIC PANEL TOTAL CA (05/25/16) PROTHROMBIN TIME (12/04/19) ROUTINE VENIPUNCTURE (12/04/19) SARS-COV2 COVID-19 AMP PRB (12/04/19) THROMBOPLASTIN TIME PARTIAL (12/04/19) TRANSFERASE (AST) (SGOT) (11/10/16) X-RAY EXAM ABDOMEN 2 VIEWS (12/04/19) X-RAY EXAM CHEST 1 VIEW (12/04/19) (1) Acute on chronic renal failure SNOMED Code(s): 511719398 Code(s): N17.9 - ACUTE KIDNEY FAILURE, UNSPECIFIED; N18.9 - CHRONIC KIDNEY DISEASE, UNSPECIFIED Current Visit: Yes (2) COPD (chronic obstructive pulmonary disease) SNOMED Code(s): 40635513 Code(s): J44.9 - CHRONIC OBSTRUCTIVE PULMONARY DISEASE, UNSPECIFIED Current Visit: Yes (3) Cystic kidney disease, unspecified Current Visit: Yes (4) Hypernatremia SNOMED Code(s): 759410868 Code(s): E87.0 - HYPEROSMOLALITY AND HYPERNATREMIA Current Visit: Yes (5) Hypokalemia SNOMED Code(s): 28598759 Code(s): E87.6 - HYPOKALEMIA Current Visit: Yes (6) Thrush, oral SNOMED Code(s): 33549288 Code(s): B37.0 - CANDIDAL STOMATITIS Current Visit: Yes (7) Tobacco dependence SNOMED Code(s): 23663947 Code(s): F17.200 - NICOTINE DEPENDENCE, UNSPECIFIED, UNCOMPLICATED Current Visit: Yes (8) Urinary retention SNOMED Code(s): 574134019 Code(s): R33.9 - RETENTION OF URINE, UNSPECIFIED Current Visit: Yes (9) Dehydration SNOMED Code(s): 01613351 Code(s): E86.0 - DEHYDRATION Current Visit: No (10) Nausea & vomiting SNOMED Code(s): 69184226 Code(s): R11.2 - NAUSEA WITH VOMITING, UNSPECIFIED Current Visit: No (11) Weight loss SNOMED Code(s): 65729227, 590713509 Code(s): R63.4 - ABNORMAL WEIGHT LOSS Current Visit: No Problem List Initiated/Reviewed/Updated: Yes Plan: 64 y/o gentleman with intractable vomiting and weight loss - plan for EGD tomorrow after continued correction of renal failure and electrolyte abnormalities - pt to have cardiac stress test in the am - may continue clear liquids as tolerated until time needed for procedure to be NPO - continue medical management per primary team Violeta Vegas MD General surgery
--- NOTE | 2019-12-19 07:50 | PCM.PRNOTE ---
- Free Text/Narrative Note: Date of service: 12/19/19 Procedure: Regadenoson (Lexiscan) stress test Ordering providers: Ambrose Lynch PA-C; Dr. Theresa Truong Indication: Pre-operative, Abnormal EKG, LBBB Baseline EKG: Sinus rhythm at 62 bpm with LBBB. T-wave inversion in Inferior leads, V6. Baseline ST depression of approximately 1mm in inferior leads. Risks and benefits were discussed with the patient and consent form was signed. The patient received Regadenoson (Lexiscan) 0.4 mg IV and a nuclear agent using standard protocol. The patient was seated for the procedure. Lexiscan test: Heart rate: 77 bpm; Blood pressure: 108/76 mm Hg; Oxygenation: 97%. EKG changes of ischemia during stress test or in recovery: No change from basel ine Arrhythmias: Rare PVC Adverse effects of Lexiscan: Dizziness that rapidly and spontaneously resolved prior to completion of test. Test terminated due to: End of protocol Impression: 1. Indeterminate Lexiscan stress test ECG for ischemia. Non-diagnostic per Lexiscan protocol. No definitive signs of ischemia seen. 2. Nuclear images pending and will be reported separately per Radiologist.
[2019-12-19] MEDS ORDERED: Enoxaparin 40 MG/0.4 ML Syringe SUBCUT SCH ×2 (09:00→13:15)
[2019-12-19] MEDS ORDERED: Potassium Phosphates 30 MMOLE in Sodium Chloride 0.9% 500 ML IV ONE (09:30)
--- NOTE | 2019-12-19 10:39 | PCM.CONSN ---
- General Info Date of Service: 12/19/19 Admission Dx/Problem (Free Text): Admission Diagnosis/Problem Admission Diagnosis/Problem Dehydration Functional Status: Reports: Other (tolerated small amount of water. No nausea. + flatus but still has not had BM) - Patient Data Vitals - Most Recent: Last Vital Signs Temp 36.7 C 12/19/19 09:46 Pulse 62 12/19/19 09:46 Resp 20 12/19/19 09:46 BP 140/76 12/19/19 09:46 Pulse Ox 98 12/19/19 09:46 Orthostatic Blood Pressure [ 146/92 Sitting] Orthostatic Blood Pressure [ 150/85 Supine] Weight - Most Recent: 57.878 kg I&O - Last 24 Hours: Intake & Output 12/18/19 12/19/19 12/19/19 22:59 06:59 14:59 Intake Total 3100 782 Output Total 425 225 Balance 2675 557 Lab Results Last 24 Hours: Laboratory Results - last 24 hr 12/16/19 12/18/19 12/18/19 Range/Units 19:00 16:25 16:25 WBC 9.10 H (4.23-9.07) K/mm3 RBC 4.46 L (4.63-6.08) M/mm3 Hgb 12.9 L (13.7-17.5) gm/dl Hct 40.5 (40.1-51.0) % MCV 90.8 (79.0-92.2) fl MCH 28.9 (25.7-32.2) pg MCHC 31.9 L (32.2-35.5) g/dl RDW Std Deviation 50.3 H (35.1-43.9) fL Plt Count 133 L (163-337) K/mm3 MPV 12.4 H (9.4-12.3) fl Neut % (Auto) 73.9 H (34.0-67.9) % Lymph % (Auto) 12.3 L (21.8-53.1) % [place] % (Auto) 10.8 (5.3-12.2) % Eos % (Auto) 2.6 (0.8-7.0) Baso % (Auto) 0.2 (0.1-1.2) % Neut # (Auto) 6.72 H (1.78-5.38) K/mm3 Lymph # (Auto) 1.12 L (1.32-3.57) K/mm3 [place] # (Auto) 0.98 H (0.30-0.82) K/mm3 Eos # (Auto) 0.24 (0.04-0.54) K/mm3 Baso # (Auto) 0.02 (0.01-0.08) K/mm3 Manual Slide Review Sodium 147 H (136-145) mEq/L Potassium 3.5 (3.5-5.1) mEq/L Chloride 115 H (98-107) mEq/L Carbon Dioxide 24 (21-32) mEq/L Anion Gap 11.5 (5-15) BUN 53 H (7-18) mg/dL Creatinine 1.7 H (0.7-1.3) mg/dL Est Cr Clr Drug Dosing 35.38 mL/min Estimated GFR (MDRD) 41 (>60) mL/min BUN/Creatinine Ratio 31.2 H (14-18) Glucose 136 H (80-115) mg/dL Calcium 8.7 (8.5-10.1) mg/dL Phosphorus (2.6-4.7) mg/dL Magnesium (1.8-2.4) mg/dl Total Bilirubin (0.2-1.0) mg/dL AST (15-37) U/L ALT (16-63) U/L Alkaline Phosphatase (46-116) U/L Total Protein (6.4-8.2) g/dl Albumin (3.4-5.0) g/dl Globulin gm/dL Albumin/Globulin Ratio (1-2) Procalcitonin 0.09 (<0.10) ng/mL 12/19/19 12/19/19 Range/Units 04:30 04:30 WBC 9.14 H (4.23-9.07) K/mm3 RBC 4.27 L (4.63-6.08) M/mm3 Hgb 12.3 L (13.7-17.5) gm/dl Hct 38.7 L (40.1-51.0) % MCV 90.6 (79.0-92.2) fl MCH 28.8 (25.7-32.2) pg MCHC 31.8 L (32.2-35.5) g/dl RDW Std Deviation 49.7 H (35.1-43.9) fL Plt Count 125 L (163-337) K/mm3 MPV 12.8 H (9.4-12.3) fl Neut % (Auto) 72.9 H (34.0-67.9) % Lymph % (Auto) 11.7 L (21.8-53.1) % [place] % (Auto) 11.4 (5.3-12.2) % Eos % (Auto) 3.7 (0.8-7.0) Baso % (Auto) 0.2 (0.1-1.2) % Neut # (Auto) 6.66 H (1.78-5.38) K/mm3 Lymph # (Auto) 1.07 L (1.32-3.57) K/mm3 [place] # (Auto) 1.04 H (0.30-0.82) K/mm3 Eos # (Auto) 0.34 (0.04-0.54) K/mm3 Baso # (Auto) 0.02 (0.01-0.08) K/mm3 Manual Slide Review Not Reportable Sodium 145 (136-145) mEq/L Potassium 3.4 L (3.5-5.1) mEq/L Chloride 112 H (98-107) mEq/L Carbon Dioxide 23 (21-32) mEq/L Anion Gap 13.4 (5-15) BUN 41 H (7-18) mg/dL Creatinine 1.4 H (0.7-1.3) mg/dL Est Cr Clr Drug Dosing 43.06 mL/min Estimated GFR (MDRD) 51 (>60) mL/min BUN/Creatinine Ratio 29.3 H (14-18) Glucose 131 H (80-115) mg/dL Calcium 8.4 L (8.5-10.1) mg/dL Phosphorus 1.2 L (2.6-4.7) mg/dL Magnesium 2.2 (1.8-2.4) mg/dl Total Bilirubin 0.8 (0.2-1.0) mg/dL AST 21 (15-37) U/L ALT 12 L (16-63) U/L Alkaline Phosphatase 56 (46-116) U/L Total Protein 5.1 L (6.4-8.2) g/dl Albumin 2.6 L (3.4-5.0) g/dl Globulin 2.5 gm/dL Albumin/Globulin Ratio 1.0 (1-2) Procalcitonin (<0.10) ng/mL Pito Results Last 24 Hours: Microbiology 12/16/19 19:00 Aerobic Blood Culture - Preliminary Blood - Venous NO GROWTH AFTER 2 DAYS Anaerobic Blood Culture - Preliminary NO GROWTH AFTER 2 DAYS 12/16/19 19:15 Aerobic Blood Culture - Preliminary Blood - Venous - Lab Draw NO GROWTH AFTER 2 DAYS Anaerobic Blood Culture - Preliminary NO GROWTH AFTER 2 DAYS Med Orders - Current: Current Medications Acetaminophen (Tylenol) 650 mg PO Q4H PRN PRN Reason: Pain (Mild 1-3)/fever Enoxaparin Sodium (Lovenox) 40 mg SUBCUT DAILY [facility] Promethazine HCl 12.5 mg/ (Sodium Chloride) 50.5 mls @ 100 mls/hr IV Q6H PRN PRN Reason: Nausea/Vomiting Last Admin: 12/17/19 09:41 Dose: 100 mls/hr Documented by: Potassium Phosphate 30 mmole/ (Sodium Chloride) 510 mls @ 102 mls/hr IV ONETIME ONE Stop: 12/19/19 14:29 Miscellaneous Information (Remove Patch) 1 ea TRDERM DAILY [facility] Last Admin: 12/18/19 09:00 Dose: 1 ea Documented by: Nicotine (Habitrol) 21 mg TRDERM DAILY [facility] Last Admin: 12/18/19 08:31 Dose: 21 mg Documented by: Nystatin (Nystatin Oral Syringe) 500,000 unit PO TID [facility] Last Admin: 12/18/19 21:06 Dose: 500,000 unit Documented by: Ondansetron HCl (Zofran) 4 mg IV Q4H PRN PRN Reason: Nausea/Vomiting Pantoprazole Sodium (Protonix Iv) 40 mg IVPUSH Q12H [facility] Last Admin: 12/18/19 21:05 Dose: 40 mg Documented by: Rosuvastatin Calcium (Crestor) 20 mg PO DAILY [facility] Last Admin: 12/18/19 08:27 Dose: 20 mg Documented by: Sodium Chloride (Saline Flush) 10 ml FLUSH ASDIRECTED PRN PRN Reason: Keep Vein Open Last Admin: 12/16/19 19:56 Dose: 10 ml Documented by: Discontinued Medications Enoxaparin Sodium (Lovenox) 30 mg SUBCUT DAILY [facility] Last Admin: 12/18/19 08:27 Dose: 30 mg Documented by: Sodium Chloride (Normal Saline) 1,000 mls @ 999 mls/hr IV BOLUS ONE; Protocol Stop: 12/16/19 19:51 Last Admin: 12/16/19 19:03 Dose: 999 mls/hr Documented by: Dextrose/Water (Dextrose 5% In Water) 1,000 mls @ 250 mls/hr IV ASDIRECTED [facility] Last Admin: 12/16/19 22:19 Dose: 250 mls/hr Documented by: Sodium Chloride (Normal Saline) 1,000 mls @ 250 mls/hr IV ASDIRECTED [facility] Last Admin: 12/17/19 02:00 Dose: 250 mls/hr Documented by: Potassium Chloride 10 meq/ (Premix) 100 mls @ 100 mls/hr IV Q1H [facility] Stop: 12/17/19 03:59 Last Admin: 12/17/19 03:07 Dose: 100 mls/hr Documented by: Lactated Ringer's (Ringers, Lactated) 1,000 mls @ 250 mls/hr IV ASDIRECTED [facility] Stop: 12/17/19 13:14 Last Admin: 12/17/19 09:25 Dose: 250 mls/hr Documented by: Lactated Ringer's (Ringers, Lactated) 1,000 mls @ 150 mls/hr IV ASDIRECTED [facility] Last Admin: 12/18/19 05:46 Dose: 150 mls/hr Documented by: Potassium Chloride 20 meq/ (Dextrose/Water) 1,010 mls @ 126.25 mls/hr IV ASDIRECTED [facility] Last Admin: 12/18/19 18:51 Dose: 126.25 mls/hr Documented by: Potassium Chloride 10 meq/ (Premix) 100 mls @ 100 mls/hr IV Q1H [facility] Stop: 12/18/19 11:59 Last Admin: 12/18/19 11:55 Dose: 100 mls/hr Documented by: Iopamidol (Isovue-300 (61%)) 100 ml IVPUSH ONETIME ONE Stop: 12/16/19 19:58 Last Admin: 12/16/19 19:57 Dose: 100 ml Documented by: Regadenoson (Lexiscan) 0.4 mg IVPUSH ONETIME ONE Stop: 12/19/19 07:01 Last Admin: 12/19/19 06:55 Dose: 0.4 mg Documented by: - Exam Quality Assessment: No: Supplemental Oxygen General: Alert, Oriented Lungs: Normal Respiratory Effort GI/Abdominal Exam: Soft, Non-Tender, No Distention Sepsis Event Note - Evaluation Sepsis Screening Result: No Definite Risk - Focused Exam Vital Signs: Vital Signs Temp Pulse Resp BP Pulse Ox 12/19/19 09:46 36.7 C 62 20 140/76 98 12/19/19 03:24 36.6 C 59 L 18 124/65 98 12/18/19 23:32 36.8 C 61 16 110/65 99 Consult PN Assessment/Plan Procedures: Procedures ALANINE AMINO (ALT) (SGPT) (11/10/16) ASSAY OF CK (CPK) (12/15/18) ASSAY OF FERRITIN (12/04/19) ASSAY OF TROPONIN QUANT (12/04/19) ASSAY THYROID STIM HORMONE (05/25/16) AUTOMATED RETICULOCYTE COUNT (11/10/16) BL SMEAR W/DIFF WBC COUNT (11/10/16) C-REACTIVE PROTEIN (12/04/19) CHEST X-RAY 2VW FRONTAL&LATL (05/19/16) COMPLETE CBC AUTOMATED (12/15/18) COMPLETE CBC W/AUTO DIFF WBC (12/04/19) COMPREHEN METABOLIC PANEL (12/04/19) ELECTROCARDIOGRAM TRACING (12/04/19) EMERGENCY DEPT VISIT (12/04/19) HYDRATE IV INFUSION ADD-ON (12/04/19) HYDRATION IV INFUSION INIT (12/04/19) LACTATE (LD) (LDH) ENZYME (12/04/19) LIPID PANEL (12/15/18) METABOLIC PANEL TOTAL CA (05/25/16) PROTHROMBIN TIME (12/04/19) ROUTINE VENIPUNCTURE (12/04/19) SARS-COV2 COVID-19 AMP PRB (12/04/19) THROMBOPLASTIN TIME PARTIAL (12/04/19) TRANSFERASE (AST) (SGOT) (11/10/16) X-RAY EXAM ABDOMEN 2 VIEWS (12/04/19) X-RAY EXAM CHEST 1 VIEW (12/04/19) (1) Acute on chronic renal failure SNOMED Code(s): 836505325 Code(s): N17.9 - ACUTE KIDNEY FAILURE, UNSPECIFIED; N18.9 - CHRONIC KIDNEY DISEASE, UNSPECIFIED Current Visit: Yes (2) COPD (chronic obstructive pulmonary disease) SNOMED Code(s): 37771340 Code(s): J44.9 - CHRONIC OBSTRUCTIVE PULMONARY DISEASE, UNSPECIFIED Current Visit: Yes (3) Cystic kidney disease, unspecified Current Visit: Yes (4) Hypernatremia SNOMED Code(s): 964962401 Code(s): E87.0 - HYPEROSMOLALITY AND HYPERNATREMIA Current Visit: Yes (5) Hypokalemia SNOMED Code(s): 21770961 Code(s): E87.6 - HYPOKALEMIA Current Visit: Yes (6) Thrush, oral SNOMED Code(s): 05531843 Code(s): B37.0 - CANDIDAL STOMATITIS Current Visit: Yes (7) Tobacco dependence SNOMED Code(s): 09008798 Code(s): F17.200 - NICOTINE DEPENDENCE, UNSPECIFIED, UNCOMPLICATED Current Visit: Yes (8) Urinary retention SNOMED Code(s): 467688703 Code(s): R33.9 - RETENTION OF URINE, UNSPECIFIED Current Visit: Yes (9) Dehydration SNOMED Code(s): 65230828 Code(s): E86.0 - DEHYDRATION Current Visit: No (10) Nausea & vomiting SNOMED Code(s): 95733480 Code(s): R11.2 - NAUSEA WITH VOMITING, UNSPECIFIED Current Visit: No (11) Weight loss SNOMED Code(s): 04680593, 648414343 Code(s): R63.4 - ABNORMAL WEIGHT LOSS Current Visit: No Problem List Initiated/Reviewed/Updated: Yes My Orders Last 24 Hours: My Active Orders 12/19/19 09:00 Schedule Procedure [COMM] Routine Plan: 64 y/o gentleman with vomiting and weight loss - plan for EGD today - pt to have cardiac stress test completed prior to the procedure - NPO - continue medical management per primary team Violeta Vegas MD General surgery
[2019-12-19] MEDS ORDERED: Lidocaine 1% 2 ML SDV ONE (10:51)
[2019-12-19] MEDS ORDERED: Lactated Ringers 1,000 ML ONE (10:51)
[2019-12-19] MEDS ORDERED: fentaNYL 100 MCG/2 ML SDV ONE (10:52)
[2019-12-19] MEDS ORDERED: Propofol 200 MG/20 ML SDV ONE (10:52)
--- NOTE | 2019-12-19 10:57 | PCM.PN ---
- General Info Date of Service: 12/19/19 Admission Dx/Problem (Free Text): Admission Diagnosis/Problem Admission Diagnosis/Problem Dehydration - Patient Data Vitals - Most Recent: Last Vital Signs Temp 98.1 F 12/19/19 09:46 Pulse 62 12/19/19 09:46 Resp 20 12/19/19 09:46 BP 140/76 12/19/19 09:46 Pulse Ox 98 12/19/19 09:46 Orthostatic Blood Pressure [ 146/92 Sitting] Orthostatic Blood Pressure [ 150/85 Supine] Weight - Most Recent: 57.878 kg I&O - Last 24 Hours: Intake & Output 12/18/19 12/19/19 12/19/19 22:59 06:59 14:59 Intake Total 3100 782 Output Total 425 225 Balance 0628 557 Lab Results Last 24 Hours: Laboratory Results - last 24 hr 12/16/19 12/18/19 12/18/19 Range/Units 19:00 16:25 16:25 WBC 9.10 H (4.23-9.07) K/mm3 RBC 4.46 L (4.63-6.08) M/mm3 Hgb 12.9 L (13.7-17.5) gm/dl Hct 40.5 (40.1-51.0) % MCV 90.8 (79.0-92.2) fl MCH 28.9 (25.7-32.2) pg MCHC 31.9 L (32.2-35.5) g/dl RDW Std Deviation 50.3 H (35.1-43.9) fL Plt Count 133 L (163-337) K/mm3 MPV 12.4 H (9.4-12.3) fl Neut % (Auto) 73.9 H (34.0-67.9) % Lymph % (Auto) 12.3 L (21.8-53.1) % Door % (Auto) 10.8 (5.3-12.2) % Eos % (Auto) 2.6 (0.8-7.0) Baso % (Auto) 0.2 (0.1-1.2) % Neut # (Auto) 6.72 H (1.78-5.38) K/mm3 Lymph # (Auto) 1.12 L (1.32-3.57) K/mm3 Door # (Auto) 0.98 H (0.30-0.82) K/mm3 Eos # (Auto) 0.24 (0.04-0.54) K/mm3 Baso # (Auto) 0.02 (0.01-0.08) K/mm3 Manual Slide Review Sodium 147 H (136-145) mEq/L Potassium 3.5 (3.5-5.1) mEq/L Chloride 115 H (98-107) mEq/L Carbon Dioxide 24 (21-32) mEq/L Anion Gap 11.5 (5-15) BUN 53 H (7-18) mg/dL Creatinine 1.7 H (0.7-1.3) mg/dL Est Cr Clr Drug Dosing 35.38 mL/min Estimated GFR (MDRD) 41 (>60) mL/min BUN/Creatinine Ratio 31.2 H (14-18) Glucose 136 H (80-115) mg/dL Calcium 8.7 (8.5-10.1) mg/dL Phosphorus (2.6-4.7) mg/dL Magnesium (1.8-2.4) mg/dl Total Bilirubin (0.2-1.0) mg/dL AST (15-37) U/L ALT (16-63) U/L Alkaline Phosphatase (46-116) U/L Total Protein (6.4-8.2) g/dl Albumin (3.4-5.0) g/dl Globulin gm/dL Albumin/Globulin Ratio (1-2) Procalcitonin 0.09 (<0.10) ng/mL 12/19/19 12/19/19 Range/Units 04:30 04:30 WBC 9.14 H (4.23-9.07) K/mm3 RBC 4.27 L (4.63-6.08) M/mm3 Hgb 12.3 L (13.7-17.5) gm/dl Hct 38.7 L (40.1-51.0) % MCV 90.6 (79.0-92.2) fl MCH 28.8 (25.7-32.2) pg MCHC 31.8 L (32.2-35.5) g/dl RDW Std Deviation 49.7 H (35.1-43.9) fL Plt Count 125 L (163-337) K/mm3 MPV 12.8 H (9.4-12.3) fl Neut % (Auto) 72.9 H (34.0-67.9) % Lymph % (Auto) 11.7 L (21.8-53.1) % Door % (Auto) 11.4 (5.3-12.2) % Eos % (Auto) 3.7 (0.8-7.0) Baso % (Auto) 0.2 (0.1-1.2) % Neut # (Auto) 6.66 H (1.78-5.38) K/mm3 Lymph # (Auto) 1.07 L (1.32-3.57) K/mm3 Door # (Auto) 1.04 H (0.30-0.82) K/mm3 Eos # (Auto) 0.34 (0.04-0.54) K/mm3 Baso # (Auto) 0.02 (0.01-0.08) K/mm3 Manual Slide Review Not Reportable Sodium 145 (136-145) mEq/L Potassium 3.4 L (3.5-5.1) mEq/L Chloride 112 H (98-107) mEq/L Carbon Dioxide 23 (21-32) mEq/L Anion Gap 13.4 (5-15) BUN 41 H (7-18) mg/dL Creatinine 1.4 H (0.7-1.3) mg/dL Est Cr Clr Drug Dosing 43.06 mL/min Estimated GFR (MDRD) 51 (>60) mL/min BUN/Creatinine Ratio 29.3 H (14-18) Glucose 131 H (80-115) mg/dL Calcium 8.4 L (8.5-10.1) mg/dL Phosphorus 1.2 L (2.6-4.7) mg/dL Magnesium 2.2 (1.8-2.4) mg/dl Total Bilirubin 0.8 (0.2-1.0) mg/dL AST 21 (15-37) U/L ALT 12 L (16-63) U/L Alkaline Phosphatase 56 (46-116) U/L Total Protein 5.1 L (6.4-8.2) g/dl Albumin 2.6 L (3.4-5.0) g/dl Globulin 2.5 gm/dL Albumin/Globulin Ratio 1.0 (1-2) Procalcitonin (<0.10) ng/mL Pito Results Last 24 Hours: Microbiology 12/16/19 19:00 Aerobic Blood Culture - Preliminary Blood - Venous NO GROWTH AFTER 2 DAYS Anaerobic Blood Culture - Preliminary NO GROWTH AFTER 2 DAYS 12/16/19 19:15 Aerobic Blood Culture - Preliminary Blood - Venous - Lab Draw NO GROWTH AFTER 2 DAYS Anaerobic Blood Culture - Preliminary NO GROWTH AFTER 2 DAYS Med Orders - Current: Current Medications Acetaminophen (Tylenol) 650 mg PO Q4H PRN PRN Reason: Pain (Mild 1-3)/fever Enoxaparin Sodium (Lovenox) 40 mg SUBCUT DAILY [facility] Promethazine HCl 12.5 mg/ (Sodium Chloride) 50.5 mls @ 100 mls/hr IV Q6H PRN PRN Reason: Nausea/Vomiting Last Admin: 12/17/19 09:41 Dose: 100 mls/hr Documented by: Potassium Phosphate 30 mmole/ (Sodium Chloride) 510 mls @ 102 mls/hr IV ONETIME ONE Stop: 12/19/19 14:29 Last Admin: 12/19/19 10:40 Dose: 102 mls/hr Documented by: Miscellaneous Information (Remove Patch) 1 ea TRDERM DAILY [facility] Last Admin: 12/18/19 09:00 Dose: 1 ea Documented by: Nicotine (Habitrol) 21 mg TRDERM DAILY [facility] Last Admin: 12/18/19 08:31 Dose: 21 mg Documented by: Nystatin (Nystatin Oral Syringe) 500,000 unit PO TID [facility] Last Admin: 12/18/19 21:06 Dose: 500,000 unit Documented by: Ondansetron HCl (Zofran) 4 mg IV Q4H PRN PRN Reason: Nausea/Vomiting Pantoprazole Sodium (Protonix Iv) 40 mg IVPUSH Q12H [facility] Last Admin: 12/18/19 21:05 Dose: 40 mg Documented by: Rosuvastatin Calcium (Crestor) 20 mg PO DAILY [facility] Last Admin: 12/18/19 08:27 Dose: 20 mg Documented by: Sodium Chloride (Saline Flush) 10 ml FLUSH ASDIRECTED PRN PRN Reason: Keep Vein Open Last Admin: 12/16/19 19:56 Dose: 10 ml Documented by: Discontinued Medications Enoxaparin Sodium (Lovenox) 30 mg SUBCUT DAILY [facility] Last Admin: 12/18/19 08:27 Dose: 30 mg Documented by: Sodium Chloride (Normal Saline) 1,000 mls @ 999 mls/hr IV BOLUS ONE; Protocol Stop: 12/16/19 19:51 Last Admin: 12/16/19 19:03 Dose: 999 mls/hr Documented by: Dextrose/Water (Dextrose 5% In Water) 1,000 mls @ 250 mls/hr IV ASDIRECTED [facility] Last Admin: 12/16/19 22:19 Dose: 250 mls/hr Documented by: Sodium Chloride (Normal Saline) 1,000 mls @ 250 mls/hr IV ASDIRECTED [facility] Last Admin: 12/17/19 02:00 Dose: 250 mls/hr Documented by: Potassium Chloride 10 meq/ (Premix) 100 mls @ 100 mls/hr IV Q1H [facility] Stop: 12/17/19 03:59 Last Admin: 12/17/19 03:07 Dose: 100 mls/hr Documented by: Lactated Ringer's (Ringers, Lactated) 1,000 mls @ 250 mls/hr IV ASDIRECTED [facility] Stop: 12/17/19 13:14 Last Admin: 12/17/19 09:25 Dose: 250 mls/hr Documented by: Lactated Ringer's (Ringers, Lactated) 1,000 mls @ 150 mls/hr IV ASDIRECTED [facility] Last Admin: 12/18/19 05:46 Dose: 150 mls/hr Documented by: Potassium Chloride 20 meq/ (Dextrose/Water) 1,010 mls @ 126.25 mls/hr IV ASDIRECTED [facility] Last Admin: 12/18/19 18:51 Dose: 126.25 mls/hr Documented by: Potassium Chloride 10 meq/ (Premix) 100 mls @ 100 mls/hr IV Q1H [facility] Stop: 12/18/19 11:59 Last Admin: 12/18/19 11:55 Dose: 100 mls/hr Documented by: Iopamidol (Isovue-300 (61%)) 100 ml IVPUSH ONETIME ONE Stop: 12/16/19 19:58 Last Admin: 12/16/19 19:57 Dose: 100 ml Documented by: Regadenoson (Lexiscan) 0.4 mg IVPUSH ONETIME ONE Stop: 12/19/19 07:01 Last Admin: 12/19/19 06:55 Dose: 0.4 mg Documented by: Sepsis Event Note - Evaluation Sepsis Screening Result: No Definite Risk - Focused Exam Vital Signs: Vital Signs Temp Pulse Resp BP Pulse Ox 12/19/19 09:46 98.1 F 62 20 140/76 98 12/19/19 03:24 97.9 F 59 L 18 124/65 98 12/18/19 23:32 98.2 F 61 16 110/65 99 - Problem List & Annotations (1) Thrush, oral SNOMED Code(s): 67834066 Code(s): B37.0 - CANDIDAL STOMATITIS Status: Acute Current Visit: Yes (2) COPD (chronic obstructive pulmonary disease) SNOMED Code(s): 93131741 Code(s): J44.9 - CHRONIC OBSTRUCTIVE PULMONARY DISEASE, UNSPECIFIED Status: Acute Current Visit: Yes (3) Tobacco dependence SNOMED Code(s): 11157440 Code(s): F17.200 - NICOTINE DEPENDENCE, UNSPECIFIED, UNCOMPLICATED Status: Acute Current Visit: Yes (4) Acute on chronic renal failure SNOMED Code(s): 881733793 Code(s): N17.9 - ACUTE KIDNEY FAILURE, UNSPECIFIED; N18.9 - CHRONIC KIDNEY DISEASE, UNSPECIFIED Status: Acute Current Visit: Yes (5) Urinary retention SNOMED Code(s): 212849072 Code(s): R33.9 - RETENTION OF URINE, UNSPECIFIED Status: Acute Current Visit: Yes (6) Nausea & vomiting SNOMED Code(s): 34863544 Code(s): R11.2 - NAUSEA WITH VOMITING, UNSPECIFIED Status: Acute Current Visit: No (7) Weight loss SNOMED Code(s): 65335993, 414873135 Code(s): R63.4 - ABNORMAL WEIGHT LOSS Status: Acute Current Visit: No (8) Hypernatremia SNOMED Code(s): 942723671 Code(s): E87.0 - HYPEROSMOLALITY AND HYPERNATREMIA Status: Acute Current Visit: Yes (9) Cystic kidney disease, unspecified Status: Acute Current Visit: Yes (10) Protein-calorie malnutrition, severe SNOMED Code(s): 866360947, 815072996, 382149547 Code(s): E43 - UNSPECIFIED SEVERE PROTEIN-CALORIE MALNUTRITION Status: Acute Current Visit: Yes - Problem List Review Problem List Initiated/Reviewed/Updated: Yes - My Orders Last 24 Hours: My Active Orders 12/18/19 Dinner Clear Liquid Diet [DIET] 12/19/19 08:24 Convert IV to Saline Lock [OM.PC] Routine 12/19/19 09:00 Enoxaparin [Lovenox] 40 mg SUBCUT DAILY 12/19/19 09:30 Potassium Phosphates 30 mmole Sodium Chloride 0.9% [Normal Saline] 500 ml IV ONETIME - Assessment Assessment:: 12/17/2019 4-week history of vomiting Leukocytosis * Patient has had a 4-week history of vomiting without diagnosis. He is a nondrinker, does not use marijuana or other drugs, does have his gallbladder, has never had an upper or lower endoscopy. Father did of an unknown cancer, question skin cancer that went to his liver. * CT of the abdomen with gastric and duodenal wall thickening. Nondilated thickened small bowel loops. Possible wall thickening of the distal descending and sigmoid colon. * Ultrasound of the abdomen did show biliary sludge and a complex renal cyst. No dilation in the common bile duct. * He has never had an episode like this in the past. * Elevated WBC likely secondary to stress Dehydration/hypovolemia/acute renal injury/hypernatremia * Patient is severely volume depleted and has already received over 3 L of fluid. * Renal function has made a significant improvement. * BUN is down to 93 and creatinine down to 2.3. Sodium is back up to 148. Elevated troponin Likely subacute type 2 LA Hypertension History of abdominal aortic aneurysm leak with stent Left bundle branch block * Patient did have symptoms over the last couple of weeks. * Has a history of left bundle branch block * Has a history of abdominal aortic aneurysm with stent * Patient likely had an oxygen supply/demand mismatch secondary to severe hypovolemia and vomiting. * He is on metoprolol as outpatient Complicated cyst within each kidney * Seen on ultrasound and CT scan. * Radiology recommends MRI of the kidneys. COPD/tobaccoism * Chest x-ray shows overinflated lungs. Nothing acute. * Not short of breath and not on any inhalers. Oral thrush * Patient is significantly dry mouth and symptoms of burning. He also has red oral mucosa with white patches on his tongue. 12/18/2019 * Elian continues to vomit after even clear liquids. * Sodium continues to increase and potassium and phosphorus are low. * He continues with significant renal dysfunction, but it has improved. * Troponin has also improved to 0.067. This is likely more due to improvement in renal function than any recent cardiac event. * Dr. Benson is planning on doing an upper endoscopy, but we are going to do a Amanda scan stress test in the morning prior to anesthesia. * Blood pressure well controlled over the last 24 hours. T-max 98.6. * Improvement in oral symptoms. * BUN 63, creatinine 1.8. * Sodium 152 * Potassium 3.1 * Albumin 2.7 - Plan Plan:: Plan * Continue IV rehydration but switch to D5W with 20 mEq of KCl per liter at 125 mL/h. * Clear liquid diet * Lexiscan in the morning if negative will proceed to upper endoscopy. * MRI of the kidneys without contrast * Zofran and Phenergan for nausea as needed * Follow CBC, CMP, mag, phosphorus * Nicotine patch * Nystatin orally for thrush * H pylori stool antigen * Stool for occult blood * Pantoprazole 40 mg IV every 12 hours. * PT eval and treat. * Follow-up blood cultures. * Follow-up on procalcitonin. * Continue statin. * Restart if needed metoprolol. * VTE prophylaxis with Lovenox * CODE STATUS full code * Disposition: Admit to medical inpatient status. Length of stay likely 2 to 3 days.
--- NOTE | 2019-12-19 12:14 | NM ---
Cardiolite cardiac scan with Lexiscan Technique: I have data stating the patient was stressed utilizing Lexiscan protocol. Stress dose of technetium 99m Cardiolite was 11.3 mCi. Rest dose was and 30.8 mCi. SPECT imaging was obtained 3 planes for both portions of the study. Study was also gated. Low-dose chest CT performed to allow for attenuation correction. Comparison: No prior cardiac imaging is available. Findings: Diminished perfusion is seen within the lateral wall near the apex. This extends into the apex. This appears fixed. This also shows lack of wall thickening. Findings are felt compatible with previous infarct. No definite reversible change is appreciated. Ejection fraction is low at 45 percent. Wall thickening is otherwise normal. Impression: 1. 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 2. No findings of reversible ischemia are seen. 3. Low ejection fraction of 45 percent. Diagnostic code #3 This report was dictated in MDT
--- NOTE | 2019-12-19 12:47 | PCM.SN.2 ---
- Free Text/Narrative Note: Anesthesia Note: After the second scan of cardiolyte stress test, results discussed with Dr. Tan. The discussion of patient's cardiovascular status discussed. Date of infarct not known, but after reviewing EKG tracings, infarct had taken place sometime before . Discussion with Dr. Tan and anesthesia and light sedation for EGD procedure agreed upon. 12/19/2019: Cardiollite Stress Test Scan Impression: Fingings which are felt compatible with previous infarct within the lateral wall extending into the apex. No findings of reversible ischemia are seen. Low ejection fraction of 45%. Thank you, Eliz PATTON
--- NOTE | 2019-12-19 12:58 | PCM.OPNOTE ---
- General Post-Op/Procedure Note Date of Surgery/Procedure: 12/19/19 Operative Procedure(s): EGD Findings: stricture/mass at 38 cm, scope could not be advanced beyond this point. Pre Op Diagnosis: vomiting and weight loss Post-Op Diagnosis: same Anesthesia Technique: MAC Primary Surgeon: Violeta Vegas Anesthesia Provider: Zachary Washington Pathology: distal esophagus biopsy Fluid Replacement, Intraop: 200 Output, Urine Amount: 0 EBL in mLs: 0 Complications: none apparent Condition: Good Free Text/Narrative:: Intake & Output 12/18/19 12/19/19 12/19/19 22:59 06:59 14:59 Intake Total 3100 782 Output Total 425 225 Balance 5085 534
--- NOTE | 2019-12-19 13:01 | PCM.PRNOTE ---
- Free Text/Narrative Note: Operative Report Date of procedure: December 19, 2019 Preoperative diagnosis: Vomiting and weight loss Postoperative diagnosis: Same Surgeon: Violeta Vegas M.D. Procedure: EGD Anesthesia: MAC Manager Clinical Research: Zachary Washington CRNA IV fluids: 200 mL Estimated blood loss: 0 mL Specimens: Distal esophagus biopsy. Indication: The patient is a 64 -year-old woman who presented with vomiting and weight loss. The patient's main complaint was inability to tolerate a diet. The patient was consented for an EGD with intervention. Risk of bleeding and perforation were discussed. The patient's consent was obtained Description of the procedure: The patient was taken to the endoscopy suite and placed on hemodynamic monitoring. The nurse waste oil pumper induced MAC anesthesia. A bite block was placed. The patient was positioned in the left lateral decubitus position. A timeout was performed. The endoscope was gently placed into the mouth to the back of the pharynx and introduced into the esophagus. The scope was gently advanced under direct visualization down to the level of the lower esophags. There was fluid and debris noted at the distal esophagus. The scope could not be advanced beyond 40 cm due to a tight stricturing process. The tissue in this area appeared very abnormal. It was unclear if it was a mass or stricture that was occluding the lumen due to poor visualization from the debris. Suctioning was attempted. The tissue was then biopsied in the distal esophagus at approximately 38 cm using a cold biopsy forceps. The scope was then withdrawn while inspecting the esophagus. There was no esophagitis. The procedure was terminated. the patient tolerated the procedure well without any evidence of complications. Violeta Vegas MD General Surgery
--- NOTE | 2019-12-19 13:11 | PCM48HPAN ---
Post Anesthesia Note - EVALUATION WITHIN 48HRS OF ANESTHETIC Vital Signs in Normal Range: Yes Patient Participated in Evaluation: Yes Respiratory Function Stable: Yes Airway Patent: Yes Cardiovascular Function Stable: Yes Hydration Status Stable: Yes Pain Control Satisfactory: Yes Nausea and Vomiting Control Satisfactory: Yes Mental Status Recovered: Yes Vital Signs: Last Vital Signs Temp 36.7 C 12/19/19 09:46 Pulse 62 12/19/19 09:46 Resp 20 12/19/19 09:46 BP 140/76 12/19/19 09:46 Pulse Ox 98 12/19/19 09:46 Orthostatic Blood Pressure [ 146/92 Sitting] Orthostatic Blood Pressure [ 150/85 Supine] - COMMENTS/OBSERVATIONS Free Text/Narrative:: no anesthesia complications noted
[2019-12-19] MEDS ORDERED: Nicotine 21 MG/24 Hr Patch TRDERM SCH (13:15)
[2019-12-19] MEDS ORDERED: Rosuvastatin 10 MG Tab PO SCH (13:15)
[2019-12-19] MEDS ORDERED: Pantoprazole 40 MG Vial IVPUSH SCH (13:15)
--- NOTE | 2019-12-19 15:17 | PCM.DCSUM1 ---
Discharge Summary - Hospital Course HPI Initial Comments: 64-year-old male with approximately 4-week history of nausea, vomiting and over 20-40 pound weight loss. Patient is a poor historian. He was seen in the emergency department on the first of this month with similar complaints lasting 2 weeks and a 20 pound weight loss. He has never had a colonoscopy or endoscopy done. On the first he was found to be hemodynamically stable, negative COVID testing, and work-up was unremarkable. At that time cardiology was consulted in [place] who felt he did not need transfer at that time and patient was offered observation and IV fluids but declined. Patient did follow-up with his PCP that week and was started on omeprazole and sucralfate. Patient states he has not been taking any medications, including medications prescribed by his PCP, because he has been vomiting for well over 2 weeks. He has had worsening weakness and states he passed out last night. Patient states that a couple of weeks ago he did have some mid sternal chest pain, characterized as pressure, nonradiating, but associated with his nausea and vomiting. EKG done on December 04, 2019 showed left bundle branch block. Patient denies any history of a myocardial infarction he has a history of hypertension. Today when EMS arrived at the patient's house his blood pressure was 88/54. He was given a 500 mL bolus of IV fluids in route to the emergency department. In the emergency department patient was found to be stable with blood pressure of 143/94. Abdomen was nontender/benign. CT of the abdomen and pelvis with IV, but not oral contrast which showed only incidental findings and nothing acute. Preliminary read did show some gastric and duodenal wall thickening. Nondilated thickened small bowel loops. Possible wall thickening of the distal descending and sigmoid colon. Abdominal ultrasound was ordered when he got to the ICU which showed: 1. Complicated cyst within each kidney. Consider renal MRI without and with contrast to hopefully confirm benign appearance. 2. Simple cyst within each kidney also noted. 3. Soft tissue findings within the gallbladder most likely representing sludge balls. No shadowing gallstones, gallbladder wall thickening, or biliary duct dilatation is seen. 4. Atherosclerotic plaque within the aorta. Mid aorta is mildly aneurysmal at 3.5 cm in AP diameter. Lab tests are significant for WBC of 21.9, hemoglobin 17.4, platelets 175, 85% neutrophils, 0 bands, PT elevated at 12.6 and INR of 1.2, sodium initially was 150, potassium 3.4, anion gap 21.4, BUN 118, creatinine 3.2, estimated GFR 20, total bilirubin 1.2, troponin I 0.067, C-reactive protein 0.7. CK 100, TSH 0.955, COVID-19 negative. Patient given 3 L of fluid in the emergency department and renal function improved to a estimated GFR of 24. Sodium came down to 145. Patient denies any fever, chills, abdominal pain, diarrhea, does state he has not had a bowel movement in a few days, hematemesis, shortness of breath, orthopnea, PND. Patient does have a mild cough but this is no different. He states he has COPD. Patient also states that his mouth feels tender and dry. Assessment/Plan Comment:: Assessment 4-week history of vomiting Leukocytosis * Patient has had a 4-week history of vomiting without diagnosis. He is a nondrinker, does not use marijuana or other drugs, does have his gallbladder, has never had an upper or lower endoscopy. Father did of an unknown cancer, question skin cancer that went to his liver. * CT of the abdomen with gastric and duodenal wall thickening. Nondilated thickened small bowel loops. Possible wall thickening of the distal descending and sigmoid colon. * Ultrasound of the abdomen did show biliary sludge and a complex renal cyst. No dilation in the common bile duct. * He has never had an episode like this in the past. * Elevated WBC likely secondary to stress Dehydration/hypovolemia/acute renal injury/hypernatremia * Patient is severely volume depleted and has already received over 3 L of fluid. * Renal function has made a significant improvement. * BUN is down to 93 and creatinine down to 2.3. Sodium is back up to 148. Elevated troponin Likely subacute type 2 [place] Hypertension History of abdominal aortic aneurysm leak with stent Left bundle branch block * Patient did have symptoms over the last couple of weeks. * Has a history of left bundle branch block * Has a history of abdominal aortic aneurysm with stent * Patient likely had an oxygen supply/demand mismatch secondary to severe hypovolemia and vomiting. * He is on metoprolol as outpatient Complicated cyst within each kidney * Seen on ultrasound and CT scan. * Radiology recommends MRI of the kidneys. COPD/tobaccoism * Chest x-ray shows overinflated lungs. Nothing acute. * Not short of breath and not on any inhalers. Oral thrush * Patient is significantly dry mouth and symptoms of burning. He also has red oral mucosa with white patches on his tongue. Plan * Vigorous IV rehydration * Clear liquid diet * Consult surgery for possible endoscopy when patient is stable * MRI of the kidneys without contrast * Zofran and Phenergan for nausea as needed * Follow CBC, CMP, mag, phosphorus * Nicotine patch * Nystatin orally for thrush * H pylori stool antigen * Stool for occult blood * Pantoprazole 40 mg IV every 12 hours. * PT eval and treat. * Follow-up blood cultures. * Procalcitonin. * Continue statin. * Restart metoprolol when appropriate. * VTE prophylaxis with Lovenox * CODE STATUS full code * Disposition: Admit to medical inpatient status. Length of stay likely 2 to 3 days. Diagnosis: Stroke: No - Discharge Data Discharge Date: 12/19/19 Discharge Disposition: Against Medical Advice 07 Condition: Poor - Referral to Home Health Primary Care Physician: PCP None - Discharge Diagnosis/Problem(s) (1) Thrush, oral SNOMED Code(s): 79787493 ICD Code: B37.0 - CANDIDAL STOMATITIS Status: Acute (2) COPD (chronic obstructive pulmonary disease) SNOMED Code(s): 55712367 ICD Code: J44.9 - CHRONIC OBSTRUCTIVE PULMONARY DISEASE, UNSPECIFIED Status: Acute (3) Tobacco dependence SNOMED Code(s): 55754204 ICD Code: F17.200 - NICOTINE DEPENDENCE, UNSPECIFIED, UNCOMPLICATED Status: Acute (4) Acute on chronic renal failure SNOMED Code(s): 400205370 ICD Code: N17.9 - ACUTE KIDNEY FAILURE, UNSPECIFIED; N18.9 - CHRONIC KIDNEY DISEASE, UNSPECIFIED Status: Acute (5) Urinary retention SNOMED Code(s): 904205004 ICD Code: R33.9 - RETENTION OF URINE, UNSPECIFIED Status: Acute (6) Nausea & vomiting SNOMED Code(s): 86050378 ICD Code: R11.2 - NAUSEA WITH VOMITING, UNSPECIFIED Status: Acute (7) Weight loss SNOMED Code(s): 19810884, 193417700 ICD Code: R63.4 - ABNORMAL WEIGHT LOSS Status: Acute (8) Hypernatremia SNOMED Code(s): 910911057 ICD Code: E87.0 - HYPEROSMOLALITY AND HYPERNATREMIA Status: Acute (9) Cystic kidney disease, unspecified Status: Acute (10) Protein-calorie malnutrition, severe SNOMED Code(s): 898966381, 255122549, 304601043 ICD Code: E43 - UNSPECIFIED SEVERE PROTEIN-CALORIE MALNUTRITION Status: Acute (11) Mass of esophagus determined by endoscopy SNOMED Code(s): 518470723, 339413596 ICD Code: K22.8 - OTHER SPECIFIED DISEASES OF ESOPHAGUS Status: Acute - Patient Summary/Data Operative Procedure(s) Performed: EGD Consults: Consultations 12/17/19 09:06 PT Evaluation and Treatment [CONS] Routine 12/18/19 07:00 Consult to Physician [CONS] Routine Hospital Course: 12/17/2019 4-week history of vomiting Leukocytosis * Patient has had a 4-week history of vomiting without diagnosis. He is a nondrinker, does not use marijuana or other drugs, does have his gallbladder, has never had an upper or lower endoscopy. Father did of an unknown cancer, question skin cancer that went to his liver. * CT of the abdomen with gastric and duodenal wall thickening. Nondilated thickened small bowel loops. Possible wall thickening of the distal descending and sigmoid colon. * Ultrasound of the abdomen did show biliary sludge and a complex renal cyst. No dilation in the common bile duct. * He has never had an episode like this in the past. * Elevated WBC likely secondary to stress Dehydration/hypovolemia/acute renal injury/hypernatremia * Patient is severely volume depleted and has already received over 3 L of fluid. * Renal function has made a significant improvement. * BUN is down to 93 and creatinine down to 2.3. Sodium is back up to 148. Elevated troponin Likely subacute type 2 [place] Hypertension History of abdominal aortic aneurysm leak with stent Left bundle branch block * Patient did have symptoms over the last couple of weeks. * Has a history of left bundle branch block * Has a history of abdominal aortic aneurysm with stent * Patient likely had an oxygen supply/demand mismatch secondary to severe hypovolemia and vomiting. * He is on metoprolol as outpatient Complicated cyst within each kidney * Seen on ultrasound and CT scan. * Radiology recommends MRI of the kidneys. COPD/tobaccoism * Chest x-ray shows overinflated lungs. Nothing acute. * Not short of breath and not on any inhalers. Oral thrush * Patient is significantly dry mouth and symptoms of burning. He also has red oral mucosa with white patches on his tongue. 12/18/2019 * Elian continues to vomit after even clear liquids. * Sodium continues to increase and potassium and phosphorus are low. * He continues with significant renal dysfunction, but it has improved. * Troponin has also improved to 0.067. This is likely more due to improvement in renal function than any recent cardiac event. * Dr. Benson is planning on doing an upper endoscopy, but we are going to do a Amanda scan stress test in the morning prior to anesthesia. * Blood pressure well controlled over the last 24 hours. T-max 98.6. * Improvement in oral symptoms. * BUN 63, creatinine 1.8. 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 No findings of reversible ischemia are seen. Low ejection fraction of 45%. * EGD: Stricture/mass at 38 cm, scope could not be advanced beyond this point. Distal esophagus biopsies performed. * Patient was counseled that he should stay in the hospital for enteric feeding tube placement and biopsy results. He refused even though he understands that by leaving he increases his risk for renal failure, worsening malnutrition, and . Even with my best attempts I could not convince him to stay. * He will continue on omeprazole capsules and open them in liquid. - Patient Instructions Diet: Full Liquid Diet Activity: As Tolerated Driving: Do Not Drive Showering/Bathing: May Shower Other/Special Instructions: You are at very high risk for a poor outcome by leaving the hospital too early. You still have significant renal damage and electrolyte abnormalities. You are severely malnourished and may need food and water. Because you are unable to take almost any nourishment orally you will likely need a gastric feeding tube. This is a surgical procedure to feed you directly into your stomach without having to pass through your esophagus. By going home too soon you are at increased risk for worsening renal failure, dizziness, falls, and even . Appointment has been made for you at Dr. Benson's for early next week and please call Jerilyn Dawkins PA-C - Discharge Plan *PRESCRIPTION DRUG MONITORING PROGRAM REVIEWED*: Not Applicable *COPY OF PRESCRIPTION DRUG MONITORING REPORT IN PATIENT SRINIVAS: Not Applicable Prescriptions/Med Rec: Nicotine [Habitrol] 21 mg TRDERM DAILY #30 patch Nystatin [Nystatin Oral Syringe] 500,000 unit PO TID #30 syringe Home Medications: Home Meds Rosuvastatin Calcium 20 mg PO DAILY 12/17/19 [History] Nicotine [Habitrol] 21 mg TRDERM DAILY #30 patch 12/19/19 [Rx] Nystatin [Nystatin Oral Syringe] 500,000 unit PO TID #30 syringe 12/19/19 [Rx] Omeprazole 20 mg PO DAILY #0 12/19/19 [Rx] Patient Handouts: Steps to Quit Smoking Referrals: Violeta Vegas MD [Physician] - 12/25/19 1:30 pm (Please follow up with Dr. Benson on December 24 at 1:30. ) Jerilyn Dawkins PA-C [Physician [employer]] - - Discharge Summary/Plan Comment DC Time >30 min.: Yes Discharge Summary/Plan Comment: Patient states he will follow-up with Dr. Cunha next December 24. If he is unable to keep fluids down he will return to the emergency department. - General Info Date of Service: 12/19/19 Admission Dx/Problem (Free Text: Admission Diagnosis/Problem Admission Diagnosis/Problem Dehydration Subjective Update: Patient states that he is feeling better today. He is still having difficulty tolerating even clear liquids. Functional Status: Reports: Pain Controlled, Ambulating, Urinating. Denies: Tolerating Diet - Review of Systems General: Reports: No Symptoms HEENT: Reports: No Symptoms Pulmonary: Reports: No Symptoms Cardiovascular: Reports: No Symptoms Gastrointestinal: Reports: Vomiting Musculoskeletal: Reports: No Symptoms Neurological: Reports: No Symptoms - Patient Data Vitals - Most Recent: Last Vital Signs Temp 98.1 F 12/19/19 09:46 Pulse 62 12/19/19 09:46 Resp 20 12/19/19 09:46 BP 140/76 12/19/19 09:46 Pulse Ox 98 12/19/19 09:46 Orthostatic Blood Pressure [ 146/92 Sitting] Orthostatic Blood Pressure [ 150/85 Supine] Weight - Most Recent: 57.878 kg I&O - Last 24 hours: Intake & Output 12/19/19 12/19/19 12/19/19 06:59 14:59 22:59 Intake Total 782 200 Output Total 225 0 Balance 557 200 Lab Results - Last 24 hrs: Laboratory Results - last 24 hr 12/16/19 12/18/19 12/18/19 Range/Units 19:00 16:25 16:25 WBC 9.10 H (4.23-9.07) K/mm3 RBC 4.46 L (4.63-6.08) M/mm3 Hgb 12.9 L (13.7-17.5) gm/dl Hct 40.5 (40.1-51.0) % MCV 90.8 (79.0-92.2) fl MCH 28.9 (25.7-32.2) pg MCHC 31.9 L (32.2-35.5) g/dl RDW Std Deviation 50.3 H (35.1-43.9) fL Plt Count 133 L (163-337) K/mm3 MPV 12.4 H (9.4-12.3) fl Neut % (Auto) 73.9 H (34.0-67.9) % Lymph % (Auto) 12.3 L (21.8-53.1) % [place] % (Auto) 10.8 (5.3-12.2) % Eos % (Auto) 2.6 (0.8-7.0) Baso % (Auto) 0.2 (0.1-1.2) % Neut # (Auto) 6.72 H (1.78-5.38) K/mm3 Lymph # (Auto) 1.12 L (1.32-3.57) K/mm3 [place] # (Auto) 0.98 H (0.30-0.82) K/mm3 Eos # (Auto) 0.24 (0.04-0.54) K/mm3 Baso # (Auto) 0.02 (0.01-0.08) K/mm3 Manual Slide Review Sodium 147 H (136-145) mEq/L Potassium 3.5 (3.5-5.1) mEq/L Chloride 115 H (98-107) mEq/L Carbon Dioxide 24 (21-32) mEq/L Anion Gap 11.5 (5-15) BUN 53 H (7-18) mg/dL Creatinine 1.7 H (0.7-1.3) mg/dL Est Cr Clr Drug Dosing 35.38 mL/min Estimated GFR (MDRD) 41 (>60) mL/min BUN/Creatinine Ratio 31.2 H (14-18) Glucose 136 H (80-115) mg/dL Calcium 8.7 (8.5-10.1) mg/dL Phosphorus (2.6-4.7) mg/dL Magnesium (1.8-2.4) mg/dl Total Bilirubin (0.2-1.0) mg/dL AST (15-37) U/L ALT (16-63) U/L Alkaline Phosphatase (46-116) U/L Total Protein (6.4-8.2) g/dl Albumin (3.4-5.0) g/dl Globulin gm/dL Albumin/Globulin Ratio (1-2) Procalcitonin 0.09 (<0.10) ng/mL 12/19/19 12/19/19 Range/Units 04:30 04:30 WBC 9.14 H (4.23-9.07) K/mm3 RBC 4.27 L (4.63-6.08) M/mm3 Hgb 12.3 L (13.7-17.5) gm/dl Hct 38.7 L (40.1-51.0) % MCV 90.6 (79.0-92.2) fl MCH 28.8 (25.7-32.2) pg MCHC 31.8 L (32.2-35.5) g/dl RDW Std Deviation 49.7 H (35.1-43.9) fL Plt Count 125 L (163-337) K/mm3 MPV 12.8 H (9.4-12.3) fl Neut % (Auto) 72.9 H (34.0-67.9) % Lymph % (Auto) 11.7 L (21.8-53.1) % [place] % (Auto) 11.4 (5.3-12.2) % Eos % (Auto) 3.7 (0.8-7.0) Baso % (Auto) 0.2 (0.1-1.2) % Neut # (Auto) 6.66 H (1.78-5.38) K/mm3 Lymph # (Auto) 1.07 L (1.32-3.57) K/mm3 [place] # (Auto) 1.04 H (0.30-0.82) K/mm3 Eos # (Auto) 0.34 (0.04-0.54) K/mm3 Baso # (Auto) 0.02 (0.01-0.08) K/mm3 Manual Slide Review Not Reportable Sodium 145 (136-145) mEq/L Potassium 3.4 L (3.5-5.1) mEq/L Chloride 112 H (98-107) mEq/L Carbon Dioxide 23 (21-32) mEq/L Anion Gap 13.4 (5-15) BUN 41 H (7-18) mg/dL Creatinine 1.4 H (0.7-1.3) mg/dL Est Cr Clr Drug Dosing 43.06 mL/min Estimated GFR (MDRD) 51 (>60) mL/min BUN/Creatinine Ratio 29.3 H (14-18) Glucose 131 H (80-115) mg/dL Calcium 8.4 L (8.5-10.1) mg/dL Phosphorus 1.2 L (2.6-4.7) mg/dL Magnesium 2.2 (1.8-2.4) mg/dl Total Bilirubin 0.8 (0.2-1.0) mg/dL AST 21 (15-37) U/L ALT 12 L (16-63) U/L Alkaline Phosphatase 56 (46-116) U/L Total Protein 5.1 L (6.4-8.2) g/dl Albumin 2.6 L (3.4-5.0) g/dl Globulin 2.5 gm/dL Albumin/Globulin Ratio 1.0 (1-2) Procalcitonin (<0.10) ng/mL [facility]U Results - Last 24 hrs: Microbiology 12/16/19 19:00 Aerobic Blood Culture - Preliminary Blood - Venous NO GROWTH AFTER 2 DAYS Anaerobic Blood Culture - Preliminary NO GROWTH AFTER 2 DAYS 12/16/19 19:15 Aerobic Blood Culture - Preliminary Blood - Venous - Lab Draw NO GROWTH AFTER 2 DAYS Anaerobic Blood Culture - Preliminary NO GROWTH AFTER 2 DAYS Med Orders - Current: Current Medications Acetaminophen (Tylenol) 650 mg PO Q4H PRN PRN Reason: Pain (Mild 1-3)/fever Enoxaparin Sodium (Lovenox) 40 mg SUBCUT DAILY SANIA Promethazine HCl 12.5 mg/ (Sodium Chloride) 50.5 mls @ 100 mls/hr IV Q6H PRN PRN Reason: Nausea/Vomiting Last Admin: 12/17/19 09:41 Dose: 100 mls/hr Documented by: Miscellaneous Information (Remove Patch) 1 ea TRDERM DAILY [facility] Last Admin: 12/18/19 09:00 Dose: 1 ea Documented by: Nicotine (Habitrol) 21 mg TRDERM DAILY [facility] Last Admin: 12/18/19 08:31 Dose: 21 mg Documented by: Nystatin (Nystatin Oral Syringe) 500,000 unit PO TID [facility] Last Admin: 12/18/19 21:06 Dose: 500,000 unit Documented by: Ondansetron HCl (Zofran) 4 mg IV Q4H PRN PRN Reason: Nausea/Vomiting Pantoprazole Sodium (Protonix Iv) 40 mg IVPUSH Q12H [facility] Last Admin: 12/18/19 21:05 Dose: 40 mg Documented by: Rosuvastatin Calcium (Crestor) 20 mg PO DAILY [facility] Last Admin: 12/18/19 08:27 Dose: 20 mg Documented by: Sodium Chloride (Saline Flush) 10 ml FLUSH ASDIRECTED PRN PRN Reason: Keep Vein Open Last Admin: 12/16/19 19:56 Dose: 10 ml Documented by: Discontinued Medications Enoxaparin Sodium (Lovenox) 30 mg SUBCUT DAILY [facility] Last Admin: 12/18/19 08:27 Dose: 30 mg Documented by: Enoxaparin Sodium (Lovenox) 40 mg SUBCUT ONETIME [facility] Stop: 12/19/19 15:00 Fentanyl (Sublimaze) Confirm Administered Dose 100 mcg .ROUTE .STK-MED ONE Stop: 12/19/19 10:53 Sodium Chloride (Normal Saline) 1,000 mls @ 999 mls/hr IV BOLUS ONE; Protocol Stop: 12/16/19 19:51 Last Admin: 12/16/19 19:03 Dose: 999 mls/hr Documented by: Dextrose/Water (Dextrose 5% In Water) 1,000 mls @ 250 mls/hr IV ASDIRECTED [facility] Last Admin: 12/16/19 22:19 Dose: 250 mls/hr Documented by: Sodium Chloride (Normal Saline) 1,000 mls @ 250 mls/hr IV ASDIRECTED [facility] Last Admin: 12/17/19 02:00 Dose: 250 mls/hr Documented by: Potassium Chloride 10 meq/ (Premix) 100 mls @ 100 mls/hr IV Q1H [facility] Stop: 12/17/19 03:59 Last Admin: 12/17/19 03:07 Dose: 100 mls/hr Documented by: Lactated Ringer's (Ringers, Lactated) 1,000 mls @ 250 mls/hr IV ASDIRECTED [facility] Stop: 12/17/19 13:14 Last Admin: 12/17/19 09:25 Dose: 250 mls/hr Documented by: Lactated Ringer's (Ringers, Lactated) 1,000 mls @ 150 mls/hr IV ASDIRECTED [facility] Last Admin: 12/18/19 05:46 Dose: 150 mls/hr Documented by: Potassium Chloride 20 meq/ (Dextrose/Water) 1,010 mls @ [facility] Last Admin: 12/18/19 18:51 Dose: 126.25 mls/hr Documented by: Potassium Chloride 10 meq/ (Premix) 100 mls @ 100 mls/hr IV Q1H [facility] Stop: 12/18/19 11:59 Last Admin: 12/18/19 11:55 Dose: 100 mls/hr Documented by: Potassium Phosphate 30 mmole/ (Sodium Chloride) 510 mls @ 102 mls/hr IV ONETIME ONE Stop: 12/19/19 14:29 Last Admin: 12/19/19 10:40 Dose: 102 mls/hr Documented by: Lactated Ringer's (Ringers, Lactated) Confirm Administered Dose 1,000 mls @ as directed .ROUTE .STK-MED ONE Stop: 12/19/19 10:52 Iopamidol (Isovue-300 (61%)) 100 ml IVPUSH ONETIME ONE Stop: 12/16/19 19:58 Last Admin: 12/16/19 19:57 Dose: 100 ml Documented by: Lidocaine HCl (Lidocaine 1%) Confirm Administered Dose 4 ml .ROUTE .STK-MED ONE Stop: 12/19/19 10:52 Nicotine (Habitrol) 21 mg TRDERM ONETIME [facility] Stop: 12/19/19 15:00 Pantoprazole Sodium (Protonix Iv) 40 mg IVPUSH ONETIME [facility] Stop: 12/19/19 15:00 Propofol (Diprivan 20 Ml) Confirm Administered Dose 200 mg .ROUTE .STK-MED ONE Stop: 12/19/19 10:53 Regadenoson (Lexiscan) 0.4 mg IVPUSH ONETIME ONE Stop: 12/19/19 07:01 Last Admin: 12/19/19 06:55 Dose: 0.4 mg Documented by: Rosuvastatin Calcium (Crestor) 20 mg PO ONETIME [facility] Stop: 12/19/19 15:00 - Exam General: Reports: Alert, Oriented HEENT: Reports: Pupils Equal, Mucous Membr. Moist/[place] Neck: Reports: Supple Lungs: Reports: Clear to Auscultation, Normal Respiratory Effort Cardiovascular: Reports: Regular Rate, Regular Rhythm GI/Abdominal Exam: Normal Bowel Sounds, Soft, Non-Tender, No Distention (Male) Exam: No Hernia, Normal Inspection, Normal Prostate, Circumcised Back Exam: Reports: Normal Inspection Extremities: Normal Inspection, Normal Range of Motion, Non-Tender, No Pedal Edema, Normal Capillary Refill Skin: Reports: Warm, Dry, Intact Psy/Mental Status: Reports: Alert, Normal Affect, Normal Mood
== END 2019-12-19 17:00 | disposition left against medical advice (07) | DRG 682 ==
LOC: JD.ED 17:53 → JD.ICU 12-17 07:29 → JD.MS 12-18 19:34
PROVIDERS: ADMIT Family Medicine; ATTEND Family Medicine
PROC: 0DJ08ZZ Inspection of Upper Intestinal Tract, Via Natural or Artificial Opening Endoscopic (ICD-10-PCS; principal; 2019-12-19)
DX: N17.9 Acute kidney failure, unspecified (principal); I21.A1 Myocardial infarction type 2; B37.0 Candidal stomatitis; E87.0 Hyperosmolality and hypernatremia; F17.200 Nicotine dependence, unspecified, uncomplicated; R33.9 Retention of urine, unspecified; I12.9 Hypertensive chronic kidney disease with stage 1 through stage 4 chronic kidney disease, or unspecified chronic kidney disease; N18.9 Chronic kidney disease, unspecified; J44.9 Chronic obstructive pulmonary disease, unspecified; E86.0 Dehydration; I44.7 Left bundle-branch block, unspecified; N28.1 Cyst of kidney, acquired; Z20.828 Contact with and (suspected) exposure to other viral communicable diseases
CPT/HCPCS: 00731; 36415; 51702; 51798; 71046; 71046-26; 74177; 74177-26; 76700; 76700-26; 78452; 78452-26; 80048; 80053; 81001; 82550; 83605; 83735; 84100; 84145; 84443; 84484; 85007; 85025; 85027; 85610; 86140; 87040; 93005; 93010; 93017; 96361; 96365; 96366; 97116-GP; 97161-GP; 99223; 99232; 99239; 99285; 99285-25; A9270-GY; A9500; C9113; G0103; J1650; J2001; J2550; J2704; J2785; J3010; J3480; J3490; J7030; J7040; J7050; J7060; J7120; Q9967; U0002

== ENCOUNTER 2020-02-18 19:31 | Emergency (ER) | payer MEDICAID ==
--- NOTE | 2020-02-18 20:07 | EDM.PDOC ---
ED HPI GENERAL MEDICAL PROBLEM - General Chief Complaint: Gastrointestinal Problem Stated Complaint: [facility] Time Seen by Provider: 02/18/20 19:40 Source of Information: Reports: Patient History Limitations: Reports: No Limitations - History of Present Illness INITIAL COMMENTS - FREE TEXT/NARRATIVE: Mr. Caldwell is a very pleasant 65-year-old gentleman who now presents to the ED by [facility] for 1 week of nausea and vomiting, with low blood pressure being found by EMS. Medical records indicate that the patient was seen in this ED on 12/04/2019 with a complaint at that time of 2 weeks of vomiting and poor oral intake, with a 20 pound weight loss over that period of time. He was found to have a Cr of 1.8. Admission to the hospital was offered, but declined, the patient was discharged home with a prescription for Zofran. The patient was then seen by me in this ED on 12/16/2019 with a complaint at that time of progressively worsening weakness, continued nausea vomiting, and an additional 20 pound weight loss over the prior 2 weeks. EMS had found him to be hypotensive, give him IV fluid, and his blood pressure was normal by the time he arrived to the ED. An extensive work-up including blood work and a CT of his abdomen and pelvis with oral and IV contrast was performed. He was found to have a sodium of 150, a BUN/Cr of 118/3.2, and possible esophagitis on the CT scan. He was also found to have urinary retention. He was admitted to the hospital through 12/19/2019, during which time he underwent a Cardiolite stress test which indicated a possible prior lateral to apex MRI. He underwent an EGD on 12/19/2019, which found an esophageal mass at 38 cm, which was biopsied. The biopsy subsequently proved esophageal cancer. The patient does not recall it, but at some point, possibly on 12/25/2019, the patient underwent an outpatient EGD with PEG placement. He also received a left-sided Port-A-Cath at some point. He states that he has already undergone both chemotherapy and radiation therapy, and that surgical excision of the esophageal mass may be performed at some point in the future, but he is not really sure. He states that he was told he could resume oral feeds about 1 week ago, but ever since then, he has had nausea and vomiting. He states that Zofran has not helped his nausea at all. He also reports lightheadedness when upright for the past 2 days. EMS found the patient's BP to be 83/50. They gave him a 700 mL bolus of IV fluid en route to the ED. At this point, he states that he is feeling "pretty good". Here in the ED, the patient's initial BP is found to be 124/107, otherwise, he is hemodynamically stable, afebrile, saturating 99% on room air. The patient states that he has been "dragging my butt", indicating fatigue, otherwise, he denies having a recent fever, chills, sore throat, ear pain, nasal or sinus congestion, cough, dyspnea, chest pain, palpitations, constipation, diarrhea, abdominal pain, urinary symptoms, recent weight gain or weight loss, recent bloody bowel movements or black bowel movements, recent joint aches, headaches, or rashes. The patient's PCP is ROBERT Dos Santos. His surgeon is Dr. Violeta Vegas. He does not recall the name of his Oncologist. He did not receive an influenza vaccine this season, and declined an offer to receive one here [facility]. - Related Data Allergies Allergy/AdvReac Type Severity Reaction Status Date / Time No Known Allergies Allergy Verified 12/16/19 18:06 Home Meds: Home Meds Multivit-Min/FA/Lycopen/Lutein [Certavite Sr-Antioxidant Tab] 1 tab PEGTUBE DAILY 02/18/20 [History] Ondansetron [Zofran ODT] 4 mg SL Q4H PRN 02/18/20 [History] Promethazine [Phenergan] 1 applic TOP Q6H PRN 02/18/20 [History] dexAMETHasone [Dexamethasone] 4 mg PEGTUBE ASDIRECTED 02/18/20 [History] Past Medical History HEENT History: Reports: Impaired Vision Cardiovascular History: Reports: Aneurysm (AAA, s/p graft repair), High Cholesterol, Hypertension, MD (possible, by abnormal Cardiolite stress test 12/19/2019), PVD, Other (See Below) (LBBB) Genitourinary History: Reports: BPH, Chronic Renal Insuffiency, Retention, Urinary Musculoskeletal History: Reports: Fracture (right shoulder), Gout (suspected, not tested, untreated) Oncologic (Cancer) History: Reports: Esophageal (dx'd 12/19/2019) - Past Surgical History Cardiovascular Surgical History: Reports: Aneurysm (Infrarenal aortic & bifemoral artery graft), Other (See Below) (Left Port-A-Cath) GI Surgical History: Reports: EGD (x 1 or 2), Other (See Below) (PEG placement) Musculoskeletal Surgical History: Reports: ORIF (right shoulder) Social & Family History - Tobacco Use Tobacco Use Status *Q: Former Tobacco User Years of Tobacco use: 51 Packs/Tins Daily: 2 Month/Year Tobacco Last Used: Quit Dec 2019 - Alcohol Use Alcohol Use History: No - Recreational Drug Use Recreational Drug Use: No - Living Situation & Occupation Living situation: Reports: , Alone Occupation: Retired ED ROS GENERAL - Review of Systems Review Of Systems: Comprehensive ROS is negative, except as noted in HPI. ED EXAM, GENERAL - Physical Exam Exam: See Below Exam Limited By: No Limitations General Appearance: Alert, No Apparent Distress, Thin Eye Exam: Bilateral Eye: EOMI, Normal Inspection Ears: Normal External Exam, Hearing Grossly Normal Nose: Normal Inspection Throat/Mouth: Normal Inspection, Normal Lips, Normal Voice, No Airway Compromise Head: Atraumatic, Normocephalic Neck: Normal Inspection, Full Range of Motion Respiratory/Chest: No Respiratory Distress, Lungs Clear, Normal Breath Sounds, No Accessory Muscle Use, Other (Left chest PAC) Cardiovascular: Normal Peripheral Pulses, Regular Rate, Rhythm, No Edema, No Gallop, No JVD, No Murmur, No Rub Peripheral Pulses: 2+: Radial (L), Radial (R) GI/Abdominal: Normal Bowel Sounds, Soft, Non-Tender, No Organomegaly, No Distention, No Abnormal Bruit, No Mass, Other (PEG to left side of abdomen, site C/D/I) Back Exam: Normal Inspection, Full Range of Motion, NT Extremities: Normal Inspection, Normal Range of Motion, No Pedal Edema, Normal Capillary Refill Neurological: Alert, Oriented, Normal Cognition, No Motor/Sensory Deficits Psychiatric: Normal Affect Skin Exam: Warm, Dry, Intact, Normal Color, No Rash Course - Vital Signs Last Recorded V/S: Last Vital Signs Temp Pulse 92 02/18/20 22:17 Resp 18 02/18/20 22:17 BP 135/73 02/18/20 22:17 Pulse Ox 100 02/18/20 22:17 Orthostatic Blood Pressure [ 92/67 Standing] Orthostatic Blood Pressure [ 105/61 Supine] - Orders/Labs/Meds Orders: Active Orders 24 hr Category Date Time Status Bladder Scan [RC] ASDIRECTED Care 02/18/20 22:07 Active Collins Catheter Insertion [Insert Urinary Catheter] [OM. Care 02/18/20 23:15 Ordered PC] Q24H Orthostatic Vital Signs [RC] STAT Care 02/18/20 19:52 Active Orthostatic Vital Signs [RC] STAT Care 02/18/20 21:13 Active Orthostatic Vital Signs [RC] STAT Care 02/18/20 23:02 Active Urinary Catheter Assessment [RC] ASDIRECTED Care 02/18/20 23:07 Active Labs: Laboratory Tests 02/18/20 02/18/20 02/19/20 Range/Units 19:41 19:41 00:30 WBC 4.28 (4.23-9.07) K/mm3 RBC 2.51 L (4.63-6.08) M/mm3 Hgb 7.6 L D (13.7-17.5) gm/dl Hct 23.8 L (40.1-51.0) % MCV 94.8 H D (79.0-92.2) fl MCH 30.3 (25.7-32.2) pg MCHC 31.9 L (32.2-35.5) g/dl RDW Std Deviation 56.3 H (35.1-43.9) fL Plt Count 194 (163-337) K/mm3 MPV 11.8 (9.4-12.3) fl Neutrophils % (Manual) 85 H (40-60) % Band Neutrophils % 2 (0-10) % Lymphocytes % (Manual) 9 L (20-40) % Atypical Lymphs % 0 % Monocytes % (Manual) 4 (2-10) % Eosinophils % (Manual) 0 L (0.8-7.0) % Basophils % (Manual) 0 L (0.2-1.2) Platelet Estimate Adequate Anisocytosis 1+ slight Macrocytosis 1+ slight Ovalocytes 1+ slight RBC Morph Comment Not Reportable Sodium 140 (136-145) mEq/L Potassium 4.4 (3.5-5.1) mEq/L Chloride 106 (98-107) mEq/L Carbon Dioxide 25 (21-32) mEq/L Anion Gap 13.4 (5-15) BUN 58 H (7-18) mg/dL Creatinine 1.4 H (0.7-1.3) mg/dL Est Cr Clr Drug Dosing 51.90 mL/min Estimated GFR (MDRD) 51 (>60) mL/min BUN/Creatinine Ratio 41.4 H (14-18) Glucose 110 (80-115) mg/dL Calcium 8.5 (8.5-10.1) mg/dL Magnesium 1.9 (1.8-2.4) mg/dl Total Bilirubin 0.5 (0.2-1.0) mg/dL AST 23 (15-37) U/L ALT 40 (16-63) U/L Alkaline Phosphatase 62 (46-116) U/L Total Protein 5.3 L (6.4-8.2) g/dl Albumin 2.5 L (3.4-5.0) g/dl Globulin 2.8 gm/dL Albumin/Globulin Ratio 0.9 L (1-2) Urine Color Yellow (Yellow) Urine Appearance Slt cloudy H (Clear) Urine pH 7.0 (5.0-8.0) Ur Specific [place] 1.020 (1.005-1.030) Urine Protein 1+ H (Negative) Urine Glucose (UA) Negative (Negative) Urine Ketones Negative (Negative) Urine Occult Blood Negative (Negative) Urine Nitrite Negative (Negative) Urine Bilirubin Negative (Negative) Urine Urobilinogen 1.0 (0.2-1.0) Ur Leukocyte Esterase Trace H (Negative) U Hyaline Cast (Auto) 0-5 (0-5) /lpf Urine RBC Not seen (0-5) /hpf Urine WBC 0-5 (0-5) /hpf Ur Squamous Epith Cells Not seen (0-5) /hpf Urine Bacteria Moderate H (FEW) /hpf Urine Mucus Rare (FEW) /hpf Meds: Medications Discontinued Medications Generic Name Dose Route Start Last Admin Trade Name Freq PRN Reason Stop Dose Admin Sodium Chloride 1,000 mls @ 999 mls/hr 02/18/20 21:13 02/18/20 21:20 Normal Saline IV 02/18/20 22:13 999 mls/hr ONETIME ONE Administration Sodium Chloride 1,000 mls @ 999 mls/hr 02/18/20 23:02 02/18/20 23:10 Normal Saline IV 02/19/20 00:02 999 mls/hr ONETIME ONE Administration Lidocaine HCl 10 ml 02/18/20 23:06 02/18/20 23:10 Xylocaine 2% Jelly MUCMEM 02/18/20 23:07 10 ml ONETIME ONE Administration - Re-Assessments/Exams Free Text/Narrative Re-Assessment/Exam: 02/18/20 20:04 As above, the patient was diagnosed with esophageal cancer in late December, at which time a PEG tube was placed. He was receiving enteral feeds up until about a week ago, when he started eating soft food and drinking on his own, at which time he developed nausea and vomiting, not relieved with oral Zofran. He was then found to be hypotensive by EMS, although now states that he feels much better after he was given a 700 mL bolus of IV fluid by EMS. His no signs here in the ED are normal, and his physical exam finds him to be quite thin, but is otherwise unremarkable. I have ordered orthostatics as well as a CBC, CMP, and magnesium level. 02/18/20 21:14 The patient is significantly orthostatic. His CBC is remarkable for a H/H depressed at 7.6/23.8, with the remainder of his CBC being unremarkable. His CMP is remarkable for a BUN/Cr elevated at 58/1.4, with the remainder of his CMP being unremarkable. His magnesium level is within normal limits at 1.9. Review of prior labs finds that the patient's H/H was 12.3/38.7 on 12/19/2019. His BUN/Cr was 48/1.4 on 12/19/2019. While the patient is anemic, he is not so anemic as to qualify for a PRBC transfusion. I have ordered 1 L of IV fluid, to be followed by repeat orthostatics. 02/18/20 22:59 Following 1 L of IV fluid, the patient is still orthostatic. A bladder scan revealed 402 mL of urine. I have ordered a second liter of IV fluid, to be followed by repeat orthostatics. 02/18/20 23:05 I discussed the patient's test results, orthostatics, and bladder scan results with the patient. As above, we are going to give a second liter of IV fluid, although that will amount to a total of 2.7 L of IV fluid, since EMS gave 700 mL. I am hoping that we can stabilize the patient's blood pressure so that he does not need to be admitted, since we are on full diversion, and I would hate to have to transfer the patient for an issue such as this. With respect to the patient's urinary retention, I recommended that we place a Collins catheter, and the patient agreed. We will check a urinalysis from the drained urine. 02/19/20 01:38 The patient's urinalysis is unremarkable. Following a second liter of IV fluid, the patient is no longer orthostatic. 02/19/20 01:40 Test results discussed with the patient. The patient states that he feels well enough to go home. He will be discharged home with a Collins catheter to a leg bag. I reminded him to keep the bag below his body height when he sleeps, to prevent urine from back flowing into his bladder. I will have him follow-up with his PCP, who may want to refer him to a Urologist - the patient states that he has not been to a Urologist previously. Departure - Departure Time of Disposition: 01:41 Disposition: Home, Self-Care 01 Condition: Good Clinical Impression: Urinary retention, Anemia, Chronic renal insufficiency, Orthostasis, Failure to thrive - Discharge Information *PRESCRIPTION DRUG MONITORING PROGRAM REVIEWED*: Not Applicable *COPY OF PRESCRIPTION DRUG MONITORING REPORT IN PATIENT SRINIVAS: Not Applicable Referrals: Jerilyn Dawkins PA-C [Physician Continuous Still Operator] - Violeta Vegas MD [Physician] - Forms: ED Department Discharge Additional Instructions: You were seen in the emergency room for 1 week of nausea and vomiting, after you resumed a soft diet. Your blood pressure was found to be low by the paramedics. They gave you IV fluid en route to the ER. Work-up in the ER included positional blood pressure checks, blood tests, and a urinalysis. Your blood pressure dropped excessively between lying and standing here in the ED, a condition known as orthostasis. You were given 2 L of IV fluid in the ER, in addition to the 700 mL of IV fluid given by the paramedics. Your blood pressures improved. A bladder scan found that you are retaining an excessive amount of urine. This is most likely due to an enlarged prostate. A Collins catheter was placed to a leg bag. Make sure that you drain the bag periodically, and make sure that the bag is below the height of your body when you sleep, so that urine does not backflow into your bladder. Your blood work found that you are anemic, although your blood count was not so low that you needed to be transfused. Your blood count, however, should be monitored. Your blood work also showed that you have chronic impairment of your kidney function, which is essentially unchanged from December. The remainder of your work-up was unremarkable. You do not have a urinary tract infection. No significant electrolyte abnormalities were found. We recommend that you resume tube feeds, since eating food seems to cause you to have nausea and vomiting. We recommend that you follow-up with your PCP, ROBERT Dos Santos, to monitor your blood count, and also for consideration of referral to a Urologist. If any other problems, please do not hesitate to return to the ER. Sepsis Event Note (ED) - Evaluation Sepsis Screening Result: No Definite Risk - Focused Exam Vital Signs: Vital Signs Pulse Resp BP Pulse Ox 02/18/20 22:17 92 18 135/73 100 02/18/20 19:36 91 16 124/107 H 99 - My Orders Last 24 Hours: My Active Orders 02/18/20 19:52 Orthostatic Vital Signs [RC] STAT 02/18/20 21:13 Orthostatic Vital Signs [RC] STAT 02/18/20 22:07 Bladder Scan [RC] ASDIRECTED 02/18/20 23:02 Orthostatic Vital Signs [RC] STAT 02/18/20 23:07 Urinary Catheter Assessment [RC] ASDIRECTED 02/18/20 23:15 Collins Catheter Insertion [Insert Urinary Catheter] [OM.PC] Q24H - Assessment/Plan Last 24 Hours: My Active Orders 02/18/20 19:52 Orthostatic Vital Signs [RC] STAT 02/18/20 21:13 Orthostatic Vital Signs [RC] STAT 02/18/20 22:07 Bladder Scan [RC] ASDIRECTED 02/18/20 23:02 Orthostatic Vital Signs [RC] STAT 02/18/20 23:07 Urinary Catheter Assessment [RC] ASDIRECTED 11/16/20 23:15 Collins Catheter Insertion [Insert Urinary Catheter] [OM.PC] Q24H
[2020-02-18] MEDS ORDERED: Sodium Chloride 0.9% 1,000 ML IV ONE ×2 (21:13→23:02)
[2020-02-18] MEDS ORDERED: Lidocaine 2% Jelly 10 ML Urojet MUCMEM ONE (23:06)
== END 2020-02-19 07:30 | disposition home or self-care (01) ==
LOC: JD.ED 19:31
DX: R33.9 Retention of urine, unspecified (principal); I12.9 Hypertensive chronic kidney disease with stage 1 through stage 4 chronic kidney disease, or unspecified chronic kidney disease; N18.9 Chronic kidney disease, unspecified; D63.1 Anemia in chronic kidney disease; R62.7 Adult failure to thrive; C15.9 Malignant neoplasm of esophagus, unspecified; Z87.891 Personal history of nicotine dependence
CPT/HCPCS: 36415; 51702; 80053; 81001; 83735; 85007; 85027; 96360; 99284; J7030; 99283

== ENCOUNTER 2020-02-19 08:41 | Inpatient (IN) | payer MEDICAID ==
[2020-02-19] MEDS ORDERED: Dextrose 5%-Lactated Ringers 1,000 ML IV SCH (09:15)
--- NOTE | 2020-02-19 09:15 | EDM.PDOC ---
ED HPI GENERAL MEDICAL PROBLEM - General Chief Complaint: General Stated Complaint: [facility] Time Seen by Provider: 02/19/20 08:56 Source of Information: Reports: Patient, EMS History Limitations: Reports: No Limitations - History of Present Illness INITIAL COMMENTS - FREE TEXT/NARRATIVE: 65-year-old male presents to the ED per [facility]. Generalized weakness a nd inability to care for himself. Patient was diagnosed with cancer of the esophagus in December of this year and still tries to drink fluids per ora. He often vomits up solid food. He has a gastric feeding tube been placed left upper abdomen from which she receives most of his nutrition. He estimates that he is lost 35 to 38 pounds of weight since the beginning of this illness in November. He was seen through the ED yesterday and treated with intravenous fluids and felt better and decided to try things at home. He found he is too weak to continue with things at home. He did not fall but he cannot walk on his own volition. Denies any diarrhea. Orts he believes he had a fever at home last night. Does have a mildly productive cough. No abdominal pain at this time. Patient was identified to have a urinary retention last evening with a 402 mils left in his urinary bladder on bladder scan. Ly catheter was placed and remains in place at this time. Patient's hemoglobin last evening was 7.6 decision made not to treat with blood products. Patient is receiving chemotherapy with the last treatment given on Tuesday, February 14 at [facility] in [place]. Patient has received radiation to the lower esophagus as well. As part of his investigations patient did have a Cardiolite stress test on 18 December which indicated a possible prior lateral to apex myocardial infarction. EGD was done on 18 December which found an esophageal mass at 38 cm which was biopsied the biopsies subsequently improved esophageal adenocarcinoma Onset: Gradual, Other (Gnosis of esophageal cancer by EGD in the latter part of November of this year) Duration: Week(s):, Chronic, Getting Worse (Recurrent nausea and vomiting generalized weakness) Location: Reports: Other (Lower esophageal or central chest pain with recurrent nausea and vomiting if he tries to eat.) Quality: Reports: Other Severity: Severe (Lysed weakness) Improves with: Reports: None Worsens with: Reports: Other Context: Reports: Other (None). Denies: Activity, Exercise (Worse when he is trying to walk and up and about. Does use a walker to aid his ambulation), Sick Contact, Trauma Associated Symptoms: Reports: Cough, cough w sputum, Loss of Appetite, Malaise, Nausea/Vomiting, Weakness. 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 (see below) - Related Data Allergies Allergy/AdvReac Type Severity Reaction Status Date / Time No Known Allergies Allergy Verified 02/19/20 08:53 Home Meds: Home Meds Multivit-Min/FA/Lycopen/Lutein [Certavite Sr-Antioxidant Tab] 1 tab PEGTUBE DAILY 02/18/20 [History] Ondansetron [Zofran ODT] 4 mg SL Q4H PRN 02/18/20 [History] Promethazine [Phenergan] 1 applic TOP Q6H PRN 02/18/20 [History] dexAMETHasone [Dexamethasone] 4 mg PEGTUBE ASDIRECTED 02/18/20 [History] Past Medical History HEENT History: Reports: Impaired Vision Cardiovascular History: Reports: Aneurysm, High Cholesterol, Hypertension, OR, PVD, Other (See Below) Respiratory History: Reports: None Gastrointestinal History: Reports: None Genitourinary History: Reports: BPH, Chronic Renal Insuffiency, Retention, Urinary Other Genitourinary History: indwelling ly Musculoskeletal History: Reports: Fracture, Gout Neurological History: Reports: None Psychiatric History: Reports: None Endocrine/Metabolic History: Reports: Hypokalemia Hematologic History: Reports: None Immunologic History: Reports: None Oncologic (Cancer) History: Reports: Esophageal Dermatologic History: Reports: None - Infectious Disease History Infectious Disease History: Reports: None - Past Surgical History Cardiovascular Surgical History: Reports: Aneurysm, Other (See Below) Other Cardiovascular Surgeries/Procedures: Aortic Anuerysm Repair GI Surgical History: Reports: EGD, Other (See Below) Other GI Surgeries/Procedures: peg tube placement Musculoskeletal Surgical History: Reports: ORIF Social & Family History - Family History Family Medical History: No Pertinent Family History - Caffeine Use Caffeine Use: Reports: None - Living Situation & Occupation Living situation: Reports: , Alone Occupation: Retired ED ROS GENERAL - Review of Systems Review Of Systems: See Below Constitutional: Reports: Malaise, Weakness, Fatigue, Decreased Appetite, Weight Loss (Feels he has lost about 35 pounds of weight since early November). Denies: Fever, Chills HEENT: Reports: No Symptoms Respiratory: Reports: Shortness of Breath, Cough (Jested sounding cough.), Sputum. Denies: Wheezing, Pleuritic Chest Pain, Hemoptysis (No color to the sputum that he is producing.) Cardiovascular: Reports: Chest Pain (Some lower central retrosternal chest pain.), Dyspnea on Exertion, Lightheadedness. Denies: Blood Pressure Problem, Claudication, Edema, Orthopnea, Palpitations Endocrine: Reports: Fatigue GI/Abdominal: Reports: Decreased Appetite, Difficulty Swallowing (Done aphasia he does pretty good with fluids not so good with solids.), Other (As a). Denies: Distension, Flatus ( feeding tube left upper quadrant of the abdomen from which she receives most of his feedings.), Hematemesis, Hematochezia, Melena : Reports: Other (Nocturia x2.) Skin: Reports: Pallor Neurological: Reports: Dizziness, Difficulty Walking, Weakness. Denies: Confusion, Seizure, Tingling Psychiatric: Reports: No Symptoms (Due to the weakness) Hematologic/Lymphatic: Reports: No Symptoms Immunologic: Reports: No Symptoms ED EXAM, GENERAL - Physical Exam Exam: See Below Exam Limited By: No Limitations General Appearance: Alert, WD/WN, Moderate Distress, Other (And does indeed appear quite ill. Temperature is 35.8 respiratory it is 20 with O2 sats of 98% room air heart rate is 77 is sinus BP 111/74) Eye Exam: Bilateral Eye: Normal Inspection, PERRL (Marked blepharal pallor without scleral icterus.) Throat/Mouth: Other Head: Atraumatic (Is very dry and coated. No oropharyngeal infection), Normocephalic, Other (Outward signs of head or facial trauma) Neck: Normal Inspection, Supple, Non-Tender, Full Range of Motion. No: Carotid Bruit, Lymphadenopathy (L), Lymphadenopathy (R) Respiratory/Chest: Lungs Clear (Kidney at rest), Respiratory Distress, Decreased Breath Sounds Cardiovascular: Regular Rate, Rhythm, No Edema, No Gallop, No Murmur (The decreased breath sounds to the posterior lung guzman by about 20%), No Rub. No: Normal Peripheral Pulses Peripheral Pulses: 1+: Posterior Tibial (L), Posterior Tibial (R), Dorsalis Pedis (L), Dorsalis Pedis (R), 2+: Carotid (L), Carotid (R) GI/Abdominal: Normal Bowel Sounds, Soft, Non-Tender, No Organomegaly, No Abnormal Bruit, No Mass, Pelvis Stable, Other (Gastric feeding tube left upper quadrant of the abdomen. Appears to be) (Male) Exam: No Hernia ( in good position), Other (Has a Ly catheter in place to a right leg bag. Urine appears clear. This was placed last night due to evidence of urinary retention with 402 mils of urine in his bladder.) Back Exam: Normal Inspection, Full Range of Motion, Decreased Range of Motion (Particularly difficulty sitting up in bed). No: CVA Tenderness (L), CVA Tenderness (R) Extremities: Normal Inspection, Normal Range of Motion, Non-Tender, No Pedal Edema Neurological: Alert, Oriented, CN II-XII Intact, Normal Cognition Psychiatric: Flat Affect Skin Exam: Warm, Dry, Intact, Pallor (Moderate pallor.) #1 Interpretation EKG Date: 02/19/20 Time: 09:29 Rhythm: NSR Rate (Beats/Min): 76 (Occasional PVCs) Montgomery: LAD-Left Montgomery Deviation (Left axis deviation -43 degrees) P-Wave: Present QRS: Other (Q waves evident in lead II and lead III cannot rule out an old inferior wall myocardial infarction.) ST-T: Other (T wave inversion in leads I and aVL V5 and V6.) QT: Prolonged (Mild to moderately prolonged) EKG Interpretation Comments: The Course - Vital Signs Last Recorded V/S: Last Vital Signs Temp 35.8 C L 02/19/20 08:50 Pulse 77 02/19/20 08:50 Resp 20 02/19/20 08:50 BP 111/74 02/19/20 08:50 Pulse Ox 98 02/19/20 08:50 - Orders/Labs/Meds Orders: Active Orders 24 hr Category Date Time Status EKG Documentation Completion [RC] STAT Care 02/19/20 09:11 Active PACKED CELLS [RED BLOOD CELLS LP] [BBK] Stat Lab 02/19/20 09:31 Received TYPE AND SCREEN [BBK] Stat Lab 02/19/20 09:31 Received URINALYSIS W/MICROSCOPIC [UA W/MICROSCOPIC] [URIN] Stat Lab 02/19/20 09:12 Ordered Dextrose 5%-Lactated Ringers 1,000 ml Med 02/19/20 09:15 Active IV ASDIRECTED Transfuse RBC [Transfuse Red Blood Cells] [COMM] Stat Oth 02/19/20 11:26 Ordered Medication Orders Dextrose/Lactated Ringer's (Dextrose 5%-Lactated Ringers) 1,000 mls @ 500 mls/hr IV ASDIRECTED SANIA Last Admin: 02/19/20 10:10 Dose: 500 mls/hr Documented by: WAQAR Labs: Laboratory Tests 02/19/20 02/19/20 02/19/20 Range/Units 09:31 09:31 09:31 WBC 3.53 L (4.23-9.07) K/mm3 RBC 2.39 L (4.63-6.08) M/mm3 Hgb 7.1 L* (13.7-17.5) gm/dl Hct 23.0 L (40.1-51.0) % MCV 96.2 H (79.0-92.2) fl MCH 29.7 (25.7-32.2) pg MCHC 30.9 L (32.2-35.5) g/dl RDW Std Deviation 57.7 H (35.1-43.9) fL Plt Count 162 L (163-337) K/mm3 MPV 10.6 (9.4-12.3) fl Neut % (Auto) 82.7 H (34.0-67.9) % Lymph % (Auto) 5.1 L (21.8-53.1) % [place] % (Auto) 11.6 (5.3-12.2) % Eos % (Auto) 0 L (0.8-7.0) Baso % (Auto) 0.0 L (0.1-1.2) % Neut # (Auto) 2.92 (1.78-5.38) K/mm3 Lymph # (Auto) 0.18 L (1.32-3.57) K/mm3 [place] # (Auto) 0.41 (0.30-0.82) K/mm3 Eos # (Auto) 0.00 L (0.04-0.54) K/mm3 Baso # (Auto) 0.00 L (0.01-0.08) K/mm3 Manual Slide Review Abnormal smear PT 11.2 (9.7-12.0) SECONDS INR 1.05 APTT 23.1 (21.7-31.4) SECONDS Sodium 141 (136-145) mEq/L Potassium 3.8 (3.5-5.1) mEq/L Chloride 106 (98-107) mEq/L Carbon Dioxide 26 (21-32) mEq/L Anion Gap 12.8 (5-15) BUN 50 H (7-18) mg/dL Creatinine 1.1 (0.7-1.3) mg/dL Est Cr Clr Drug Dosing 46.62 mL/min Estimated GFR (MDRD) > 60 (>60) mL/min BUN/Creatinine Ratio 45.5 H (14-18) Glucose 126 H (80-115) mg/dL Lactic Acid (0.4-2.0) mmol/L Calcium 8.8 (8.5-10.1) mg/dL Magnesium 1.9 (1.8-2.4) mg/dl Total Bilirubin 0.5 (0.2-1.0) mg/dL AST 21 (15-37) U/L ALT 38 (16-63) U/L Alkaline Phosphatase 62 (46-116) U/L Troponin I < 0.017 (0.00-0.056) ng/mL C-Reactive Protein 1.1 H* (<1.0) mg/dL NT-Pro-B Natriuret Pep (0-125) pg/mL Total Protein 5.6 L (6.4-8.2) g/dl Albumin 2.7 L (3.4-5.0) g/dl Globulin 2.9 gm/dL Albumin/Globulin Ratio 0.9 L (1-2) SARS-CoV-2 RNA (KATELYN) (NEGATIVE) 02/19/20 02/19/20 02/19/20 Range/Units 09:31 09:31 10:11 WBC (4.23-9.07) K/mm3 RBC (4.63-6.08) M/mm3 Hgb (13.7-17.5) gm/dl Hct (40.1-51.0) % MCV (79.0-92.2) fl MCH (25.7-32.2) pg MCHC (32.2-35.5) g/dl RDW Std Deviation (35.1-43.9) fL Plt Count (163-337) K/mm3 MPV (9.4-12.3) fl Neut % (Auto) (34.0-67.9) % Lymph % (Auto) (21.8-53.1) % [place] % (Auto) (5.3-12.2) % Eos % (Auto) (0.8-7.0) Baso % (Auto) (0.1-1.2) % Neut # (Auto) (1.78-5.38) K/mm3 Lymph # (Auto) (1.32-3.57) K/mm3 [place] # (Auto) (0.30-0.82) K/mm3 Eos # (Auto) (0.04-0.54) K/mm3 Baso # (Auto) (0.01-0.08) K/mm3 Manual Slide Review PT (9.7-12.0) SECONDS INR APTT (21.7-31.4) SECONDS Sodium (136-145) mEq/L Potassium (3.5-5.1) mEq/L Chloride (98-107) mEq/L Carbon Dioxide (21-32) mEq/L Anion Gap (5-15) BUN (7-18) mg/dL Creatinine (0.7-1.3) mg/dL Est Cr Clr Drug Dosing mL/min Estimated GFR (MDRD) (>60) mL/min BUN/Creatinine Ratio (14-18) Glucose (80-115) mg/dL Lactic Acid 1.2 (0.4-2.0) mmol/L Calcium (8.5-10.1) mg/dL Magnesium (1.8-2.4) mg/dl Total Bilirubin (0.2-1.0) mg/dL AST (15-37) U/L ALT (16-63) U/L Alkaline Phosphatase (46-116) U/L Troponin I (0.00-0.056) ng/mL C-Reactive Protein (<1.0) mg/dL NT-Pro-B Natriuret Pep 1076 H (0-125) pg/mL Total Protein (6.4-8.2) g/dl Albumin (3.4-5.0) g/dl Globulin gm/dL Albumin/Globulin Ratio (1-2) SARS-CoV-2 RNA (KATELYN) Negative (NEGATIVE) Meds: Medications Generic Name Dose Route Start Last Admin Trade Name Noy PRN Reason Stop Dose Admin Dextrose/Lactated Ringer's 1,000 mls @ 500 mls/hr 02/19/20 09:15 02/19/20 10:10 Dextrose 5%-Lactated Ringers IV 500 mls/hr ASDIRECTED SANIA Administration Discontinued Medications Generic Name Dose Route Start Last Admin Trade Name Freq PRN Reason Stop Dose Admin Furosemide 40 mg 02/19/20 11:29 Lasix IVPUSH 02/19/20 11:30 NOW ONE - Radiology Interpretation Free Text/Narrative:: 65-year-old male presents to the ED once again for evaluation of generalized weakness recurrent nausea and vomiting and dyspnea on minimal exertion. He was seen through the ED yesterday and given fluids and felt better and was discharged to home. He states overnight he feels increasingly weak and short of breath on minimal exertion. His hemoglobin last night was 7.6. - Re-Assessments/Exams Free Text/Narrative Re-Assessment/Exam: 02/19/20 10:59 chest x-ray reveals left implanted Port-A-Cath. It terminates in the superior vena cava in satisfactory position. The lungs are normally expanded and clear. Normal heart and cardiomediastinal silhouette. Normal pulmonary blood vessels normal aorta bones are intact. 02/19/20 11:05 A low white count at 3.53 with a left shift of 82.7% neutrophils. Suggesting viral infection hemoglobin is low at 7.1 suggesting he is possibly still bleeding as it was 7.6 last night. Hematocrit is 23.0 MCV is 96.2 platelet count 162,000 slightly low. PT is 11.2 with an INR of 1.05 PTT is 23.1. Sodium is 141 with a potassium of 3.8 chloride 106 with a bicarb of 26. Anion gap is 12.8. BUN is 50 with a creatinine of 1.1. GFR is greater than 60. Glucose 126 lactic acid 1.2. Calcium 8.8 magnesium 1.9 liver function normal. Troponin I is less than 0.017 C-reactive protein 1.1 total protein is low at 5.6 with an albumin fraction of 2.7. 02/19/20 11:28 Covid 19 screen came back negative. I have discussed the case with on-call hospitalist Dr. Truong and patient will be admitted to the hospital MedSurg status to receive 2 units of packed cells fluids and see if we can get him back eating again. Chemotherapy that he received last February 14 seems to have knocked him down physically quite badly. Of note his BNP did come back elevated at 76. I am therefore going to give him Lasix 40 mg IV prior to initial blood transfusion he may need another 40 mg IV after 2 units of packed cells have been infused. Departure - Departure Time of Disposition: 12:10 Disposition: Home, Self-Care 01 Condition: Fair Clinical Impression: Esophageal adenocarcinoma, Volume depletion, Leukocytosis, Mild congestive heart failure Anemia Qualifiers: Anemia type: other cause Adverse effect of chemotherapy Qualifiers: Encounter type: initial encounter Qualified Code(s): T45.1X5A - Adverse effect of antineoplastic and immunosuppressive drugs, initial encounter - Discharge Information *PRESCRIPTION DRUG MONITORING PROGRAM REVIEWED*: Not Applicable *COPY OF PRESCRIPTION DRUG MONITORING REPORT IN PATIENT SRINIVAS: Not Applicable Sepsis Event Note (ED) - Evaluation Sepsis Screening Result: No Definite Risk - Focused Exam Vital Signs: Vital Signs Temp Pulse Resp BP Pulse Ox 02/19/20 08:50 35.8 C L 77 20 111/74 98 - My Orders Last 24 Hours: My Active Orders 02/19/20 09:11 EKG Documentation Completion [RC] STAT 02/19/20 09:12 URINALYSIS W/MICROSCOPIC [UA W/MICROSCOPIC] [URIN] Stat 02/19/20 09:15 Dextrose 5%-Lactated Ringers 1,000 ml IV ASDIRECTED 02/19/20 09:31 PACKED CELLS [RED BLOOD CELLS LP] [BBK] Stat TYPE AND SCREEN [BBK] Stat 02/19/20 11:26 Transfuse RBC [Transfuse Red Blood Cells] [COMM] Stat - Assessment/Plan Last 24 Hours: My Active Orders 02/19/20 09:11 EKG Documentation Completion [RC] STAT 02/19/20 09:12 URINALYSIS W/MICROSCOPIC [UA W/MICROSCOPIC] [URIN] Stat 02/19/20 09:15 Dextrose 5%-Lactated Ringers 1,000 ml IV ASDIRECTED 02/19/20 09:31 PACKED CELLS [RED BLOOD CELLS LP] [BBK] Stat TYPE AND SCREEN [BBK] Stat 02/19/20 11:26 Transfuse RBC [Transfuse Red Blood Cells] [COMM] Stat
--- NOTE | 2020-02-19 09:51 | CR ---
PROCEDURE INFORMATION: Exam: XR Chest, 1 View Exam date and time: 02/19/2020 8:58 AM Age: 65 years old Clinical indication: Condition or disease; Other: COPD; Cough TECHNIQUE: Imaging protocol: XR of the chest Views: 1 view. COMPARISON: DX Chest 2V 12/16/2019 7:34 PM FINDINGS: Tubes, catheters and devices: Left chest implanted medication reservoir has an intact catheter that terminates in satisfactory position. Lungs: The lungs are normally expanded and clear. Pleural space: Normal. Heart/Mediastinum: Normal heart and cardiomediastinal silhouette. Vasculature: Normal pulmonary vessel caliber. Normal aorta. Bones/joints: The bones are intact. IMPRESSION: Appropriately positioned left MediPort. No cardiopulmonary disease. Thank you for allowing us to participate in the care of your patient. Dictated and Authenticated by: Aj Love MD 02/19/2020 10:42 AM Central Time ([place] & [place]) LINA
[2020-02-19] MEDS ORDERED: Furosemide 40 MG/4 ML VIAL IVPUSH ONE (11:29)
[2020-02-19] MEDS ORDERED: HYDROmorphone 0.5 MG/0.5 ML Syringe IVPUSH PRN (12:04)
[2020-02-19] MEDS ORDERED: Docusate Sodium 100 MG Cap PO PRN (12:04)
[2020-02-19] MEDS ORDERED: Acetaminophen 325 MG Tab PO PRN (12:04)
[2020-02-19] MEDS ORDERED: Sodium Chloride 0.9% 10 ML Syringe FLUSH PRN (12:04)
[2020-02-19] MEDS: Ondansetron 4 MG/2 ML SDV IV PRN ×2 (12:58→22:50)
[2020-02-19] MEDS ORDERED: Sodium Chloride 0.9% 250 ML IV SCH (13:15)
[2020-02-19] MEDS ORDERED: Ondansetron 4 MG/2 ML SDV IVPUSH ONE (14:29)
--- NOTE | 2020-02-19 15:00 | PCM.HP.2 ---
H&P History of Present Illness - General Date of Service: 02/19/20 Admit Problem/Dx: Admission Diagnosis/Problem Admission Diagnosis/Problem Anemia Source of Information: Patient, Provider History Limitations: Reports: No Limitations - History of Present Illness Initial Comments - Free Text/Narative: 65-year-old male presents to the ED per [facility]. Generalized weakness and inability to care for himself. Patient was diagnosed with cancer of the esophagus in December of this year and still tries to drink fluids per ora. He often vomits up solid food. He has a gastric feeding tube been placed left upper abdomen from which she receives most of his nutrition. He estimates that he is lost 35 to 38 pounds of weight since the beginning of this illness in November. He was seen through the ED yesterday and treated with intravenous fluids and felt better and decided to try things at home. He found he is too weak to continue with things at home. He did not fall but he cannot walk on his own volition. Denies any diarrhea. Orts he believes he had a fever at home last night. Does have a mildly productive cough. No abdominal pain at this time. Patient was identified to have a urinary retention last evening with a 402 mils left in his urinary bladder on bladder scan. Ly catheter was placed and remains in place at this time. Patient's hemoglobin last evening was 7.6 decision made not to treat with blood products. Patient is receiving chemothera py with the last treatment given on February 14 at [facility] in [place]. Patient has received radiation to the lower esophagus as well. As part of his investigations patient did have a Cardiolite stress test on 18 December which indicated a possible prior lateral to apex myocardial infarction. EGD was done on 18 December which found an esophageal mass at 38 cm which was biopsied the biopsies subsequently improved esophageal adenocarcinoma - Related Data Allergies/Adverse Reactions: Allergies Allergy/AdvReac Type Severity Reaction Status Date / Time No Known Allergies Allergy Verified 02/19/20 12:37 Home Medications: Home Meds Multivit-Min/FA/Lycopen/Lutein [Certavite Sr-Antioxidant Tab] 1 tab PEGTUBE DAILY 02/18/20 [History] Ondansetron [Zofran ODT] 4 mg SL Q4H PRN 02/18/20 [History] Promethazine [Phenergan] 1 applic TOP Q6H PRN 02/18/20 [History] dexAMETHasone [Dexamethasone] 4 mg PEGTUBE ASDIRECTED 02/18/20 [History] Metoprolol Succinate 50 mg PO DAILY 02/19/20 [History] Rosuvastatin [Crestor] 20 mg PO DAILY 02/19/20 [History] Past Medical History HEENT History: Reports: Impaired Vision Cardiovascular History: Reports: Aneurysm, High Cholesterol, Hypertension, PVD, Other (See Below) Respiratory History: Reports: None Gastrointestinal History: Reports: None Genitourinary History: Reports: BPH, Chronic Renal Insuffiency, Retention, Urinary Other Genitourinary History: indwelling ly Musculoskeletal History: Reports: Fracture, Gout Neurological History: Reports: None Psychiatric History: Reports: None Endocrine/Metabolic History: Reports: Hypokalemia Hematologic History: Reports: None Immunologic History: Reports: None Oncologic (Cancer) History: Reports: Esophageal Dermatologic History: Reports: None - Infectious Disease History Infectious Disease History: Reports: None - Past Surgical History Cardiovascular Surgical History: Reports: Aneurysm, Other (See Below) Other Cardiovascular Surgeries/Procedures: Aortic Anuerysm Repair GI Surgical History: Reports: EGD, Other (See Below) Other GI Surgeries/Procedures: peg tube placement Musculoskeletal Surgical History: Reports: ORIF Social & Family History - Family History Family Medical History: No Pertinent Family History - Tobacco Use Tobacco Use Status *Q: Former Tobacco User Years of Tobacco use: 20 Packs/Tins Daily: 2 Used Tobacco, but Quit: Yes Month/Year Tobacco Last Used: Dec 2019 Second Hand Smoke Exposure: No - Caffeine Use Caffeine Use: Reports: None - Recreational Drug Use Recreational Drug Use: No - Living Situation & Occupation Living situation: Reports: , Alone Occupation: Retired H&P Review of Systems - Review of Systems: Review Of Systems: See Below General: Reports: Malaise, Weakness, Decreased Appetite, Weight Loss HEENT: Reports: Glasses Pulmonary: Reports: Cough, Sputum Cardiovascular: Reports: No Symptoms Gastrointestinal: Reports: Difficulty Swallowing, Vomiting Genitourinary: Reports: No Symptoms, Other (Ly catheter placed last night in the emergency department. Due to urinary retention.) Musculoskeletal: Reports: No Symptoms Skin: Reports: No Symptoms Psychiatric: Reports: No Symptoms Neurological: Reports: No Symptoms Exam - Exam Exam: See Below - Vital Signs Vital Signs: Last Vital Signs Temp 97.8 F 02/19/20 14:19 Pulse 77 02/19/20 14:19 Resp 16 02/19/20 14:19 BP 111/74 02/19/20 14:19 Pulse Ox 100 02/19/20 14:19 Weight: 212 lb 12.8 oz - Exam Quality Assessment: Urinary Catheter. No: Supplemental Oxygen General: Alert, Oriented, Cooperative, Mild Distress HEENT: Conjunctiva Clear, EACs Clear, Mucosa Moist & [place], Pupils Equal, Pupils Reactive Neck: Supple, Trachea Midline. No: Lymphadenopathy Lungs: Normal Respiratory Effort, Decreased Breath Sounds Cardiovascular: Regular Rate, Regular Rhythm, Normal S1, Normal S2 GI/Abdominal Exam: Normal Bowel Sounds, Soft, Non-Tender, No Distention (Male) Exam: Deferred Rectal (Males) Exam: Deferred Back Exam: Normal Inspection, Full Range of Motion Extremities: Normal Inspection, Normal Range of Motion, Non-Tender, No Pedal Ed elmer, Normal Capillary Refill Peripheral Pulses: 2+: Radial (L), Radial (R), Dorsalis Pedis (L), Dorsalis Pedis (R) Skin: Warm, Dry, Intact Neuro Extensive - Mental Status: Alert, Oriented x3, Normal Mood/Affect, Normal Cognition, Memory Intact Psychiatric: Alert, Normal Affect, Normal Mood - Patient Data Lab Results Last 24 hrs: Laboratory Results - last 24 hr 02/19/20 02/19/20 02/19/20 Range/Units 00:30 09:31 09:31 WBC 3.53 L (4.23-9.07) K/mm3 RBC 2.39 L (4.63-6.08) M/mm3 Hgb 7.1 L* (13.7-17.5) gm/dl Hct 23.0 L (40.1-51.0) % MCV 96.2 H (79.0-92.2) fl MCH 29.7 (25.7-32.2) pg MCHC 30.9 L (32.2-35.5) g/dl RDW Std Deviation 57.7 H (35.1-43.9) fL Plt Count 162 L (163-337) K/mm3 MPV 10.6 (9.4-12.3) fl Neut % (Auto) 82.7 H (34.0-67.9) % Lymph % (Auto) 5.1 L (21.8-53.1) % [place] % (Auto) 11.6 (5.3-12.2) % Eos % (Auto) 0 L (0.8-7.0) Baso % (Auto) 0.0 L (0.1-1.2) % Neut # (Auto) 2.92 (1.78-5.38) K/mm3 Lymph # (Auto) 0.18 L (1.32-3.57) K/mm3 [place] # (Auto) 0.41 (0.30-0.82) K/mm3 Eos # (Auto) 0.00 L (0.04-0.54) K/mm3 Baso # (Auto) 0.00 L (0.01-0.08) K/mm3 Manual Slide Review Abnormal smear PT 11.2 (9.7-12.0) SECONDS INR 1.05 APTT 23.1 (21.7-31.4) SECONDS Sodium (136-145) mEq/L Potassium (3.5-5.1) mEq/L Chloride (98-107) mEq/L Carbon Dioxide (21-32) mEq/L Anion Gap (5-15) BUN (7-18) mg/dL Creatinine (0.7-1.3) mg/dL Est Cr Clr Drug Dosing mL/min Estimated GFR (MDRD) (>60) mL/min BUN/Creatinine Ratio (14-18) Glucose (80-115) mg/dL Lactic Acid (0.4-2.0) mmol/L Calcium (8.5-10.1) mg/dL Magnesium (1.8-2.4) mg/dl Total Bilirubin (0.2-1.0) mg/dL AST (15-37) U/L ALT (16-63) U/L Alkaline Phosphatase (46-116) U/L Troponin I (0.00-0.056) ng/mL C-Reactive Protein (<1.0) mg/dL NT-Pro-B Natriuret Pep (0-125) pg/mL Total Protein (6.4-8.2) g/dl Albumin (3.4-5.0) g/dl Globulin gm/dL Albumin/Globulin Ratio (1-2) Urine Color Yellow (Yellow) Urine Appearance Clear (Clear) Urine pH 7.5 (5.0-8.0) Ur Specific [place] 1.020 (1.005-1.030) Urine Protein 1+ H (Negative) Urine Glucose (UA) Negative (Negative) Urine Ketones Negative (Negative) Urine Occult Blood Negative (Negative) Urine Nitrite Negative (Negative) Urine Bilirubin Negative (Negative) Urine Urobilinogen 1.0 (0.2-1.0) Ur Leukocyte Esterase Negative (Negative) Urine RBC 0-5 (0-5) /hpf Urine WBC 0-5 (0-5) /hpf Ur Squamous Epith Cells 0-5 (0-5) /hpf Urine Bacteria Few (FEW) /hpf Urine Mucus Few (FEW) /hpf SARS-CoV-2 RNA (KATELYN) (NEGATIVE) Blood Type Gel Antibody Screen Crossmatch 02/19/20 02/19/20 02/19/20 Range/Units 09:31 09:31 09:31 WBC (4.23-9.07) K/mm3 RBC (4.63-6.08) M/mm3 Hgb (13.7-17.5) gm/dl Hct (40.1-51.0) % MCV (79.0-92.2) fl MCH (25.7-32.2) pg MCHC (32.2-35.5) g/dl RDW Std Deviation (35.1-43.9) fL Plt Count (163-337) K/mm3 MPV (9.4-12.3) fl Neut % (Auto) (34.0-67.9) % Lymph % (Auto) (21.8-53.1) % [place] % (Auto) (5.3-12.2) % Eos % (Auto) (0.8-7.0) Baso % (Auto) (0.1-1.2) % Neut # (Auto) (1.78-5.38) K/mm3 Lymph # (Auto) (1.32-3.57) K/mm3 [place] # (Auto) (0.30-0.82) K/mm3 Eos # (Auto) (0.04-0.54) K/mm3 Baso # (Auto) (0.01-0.08) K/mm3 Manual Slide Review PT (9.7-12.0) SECONDS INR APTT (21.7-31.4) SECONDS Sodium 141 (136-145) mEq/L Potassium 3.8 (3.5-5.1) mEq/L Chloride 106 (98-107) mEq/L Carbon Dioxide 26 (21-32) mEq/L Anion Gap 12.8 (5-15) BUN 50 H (7-18) mg/dL Creatinine 1.1 (0.7-1.3) mg/dL Est Cr Clr Drug Dosing 46.62 mL/min Estimated GFR (MDRD) > 60 (>60) mL/min BUN/Creatinine Ratio 45.5 H (14-18) Glucose 126 H (80-115) mg/dL Lactic Acid 1.2 (0.4-2.0) mmol/L Calcium 8.8 (8.5-10.1) mg/dL Magnesium 1.9 (1.8-2.4) mg/dl Total Bilirubin 0.5 (0.2-1.0) mg/dL AST 21 (15-37) U/L ALT 38 (16-63) U/L Alkaline Phosphatase 62 (46-116) U/L Troponin I < 0.017 (0.00-0.056) ng/mL C-Reactive Protein 1.1 H* (<1.0) mg/dL NT-Pro-B Natriuret Pep 1076 H (0-125) pg/mL Total Protein 5.6 L (6.4-8.2) g/dl Albumin 2.7 L (3.4-5.0) g/dl Globulin 2.9 gm/dL Albumin/Globulin Ratio 0.9 L (1-2) Urine Color (Yellow) Urine Appearance (Clear) Urine pH (5.0-8.0) Ur Specific [place] (1.005-1.030) Urine Protein (Negative) Urine Glucose (UA) (Negative) Urine Ketones (Negative) Urine Occult Blood (Negative) Urine Nitrite (Negative) Urine Bilirubin (Negative) Urine Urobilinogen (0.2-1.0) Ur Leukocyte Esterase (Negative) Urine RBC (0-5) /hpf Urine WBC (0-5) /hpf Ur Squamous Epith Cells (0-5) /hpf Urine Bacteria (FEW) /hpf Urine Mucus (FEW) /hpf SARS-CoV-2 RNA (KATELYN) (NEGATIVE) Blood Type Gel Antibody Screen Crossmatch 02/19/20 02/19/20 Range/Units 09:31 10:11 WBC (4.23-9.07) K/mm3 RBC (4.63-6.08) M/mm3 Hgb (13.7-17.5) gm/dl Hct (40.1-51.0) % MCV (79.0-92.2) fl MCH (25.7-32.2) pg MCHC (32.2-35.5) g/dl RDW Std Deviation (35.1-43.9) fL Plt Count (163-337) K/mm3 MPV (9.4-12.3) fl Neut % (Auto) (34.0-67.9) % Lymph % (Auto) (21.8-53.1) % [place] % (Auto) (5.3-12.2) % Eos % (Auto) (0.8-7.0) Baso % (Auto) (0.1-1.2) % Neut # (Auto) (1.78-5.38) K/mm3 Lymph # (Auto) (1.32-3.57) K/mm3 [place] # (Auto) (0.30-0.82) K/mm3 Eos # (Auto) (0.04-0.54) K/mm3 Baso # (Auto) (0.01-0.08) K/mm3 Manual Slide Review PT (9.7-12.0) SECONDS INR APTT (21.7-31.4) SECONDS Sodium (136-145) mEq/L Potassium (3.5-5.1) mEq/L Chloride (98-107) mEq/L Carbon Dioxide (21-32) mEq/L Anion Gap (5-15) BUN (7-18) mg/dL Creatinine (0.7-1.3) mg/dL Est Cr Clr Drug Dosing mL/min Estimated GFR (MDRD) (>60) mL/min BUN/Creatinine Ratio (14-18) Glucose (80-115) mg/dL Lactic Acid (0.4-2.0) mmol/L Calcium (8.5-10.1) mg/dL Magnesium (1.8-2.4) mg/dl Total Bilirubin (0.2-1.0) mg/dL AST (15-37) U/L ALT (16-63) U/L Alkaline Phosphatase (46-116) U/L Troponin I (0.00-0.056) ng/mL C-Reactive Protein (<1.0) mg/dL NT-Pro-B Natriuret Pep (0-125) pg/mL Total Protein (6.4-8.2) g/dl Albumin (3.4-5.0) g/dl Globulin gm/dL Albumin/Globulin Ratio (1-2) Urine Color (Yellow) Urine Appearance (Clear) Urine pH (5.0-8.0) Ur Specific [place] (1.005-1.030) Urine Protein (Negative) Urine Glucose (UA) (Negative) Urine Ketones (Negative) Urine Occult Blood (Negative) Urine Nitrite (Negative) Urine Bilirubin (Negative) Urine Urobilinogen (0.2-1.0) Ur Leukocyte Esterase (Negative) Urine RBC (0-5) /hpf Urine WBC (0-5) /hpf Ur Squamous Epith Cells (0-5) /hpf Urine Bacteria (FEW) /hpf Urine Mucus (FEW) /hpf SARS-CoV-2 RNA (KATELYN) Negative (NEGATIVE) Blood Type O POSITIVE Gel Antibody Screen Negative Crossmatch See Detail Result Diagrams: 02/19/20 09:31 02/19/20 09:31 Sepsis Event Note - Evaluation Sepsis Screening Result: No Definite Risk - Focused Exam Vital Signs: Vital Signs Temp Temp Pulse Pulse Resp BP BP 02/19/20 14:19 97.8 F 77 16 111/74 02/19/20 14:04 98.0 F 77 16 109/92 H 02/19/20 13:50 98.1 F 81 16 92/73 02/19/20 13:48 98.0 F 80 16 92/73 02/19/20 12:22 98.1 F 59 L 22 H 107/55 L 02/19/20 08:50 96.4 F L 77 20 111/74 Pulse Ox 02/19/20 14:19 100 02/19/20 14:04 99 02/19/20 13:50 90 L 02/19/20 13:48 91 L 02/19/20 12:22 100 02/19/20 08:50 98 - Problem List (1) Adverse effect of chemotherapy SNOMED Code(s): 943447548 ICD Code: T45.1X5A - ADVERSE EFFECT OF ANTINEOPLASTIC AND IMMUNOSUP DRUGS, INIT Status: Acute Priority: High Current Visit: Yes Qualifiers: Encounter type: initial encounter Qualified Code(s): T45.1X5A - Adverse effect of antineoplastic and immunosuppressive drugs, initial encounter (2) Anemia SNOMED Code(s): 744098751 ICD Code: D64.9 - ANEMIA, UNSPECIFIED Status: Acute Priority: High Current Visit: Yes Qualifiers: Anemia type: other cause Other causes of anemia: antineoplastic chemotherapy Qualified Code(s): D64.81 - Anemia due to antineoplastic chemotherapy; T45.1X5A - Adverse effect of antineoplastic and immunosuppressive drugs, initial encounter (3) Esophageal adenocarcinoma SNOMED Code(s): 535688728 ICD Code: C15.9 - MALIGNANT NEOPLASM OF ESOPHAGUS, UNSPECIFIED Status: Acute Priority: High Current Visit: Yes (4) Mild congestive heart failure SNOMED Code(s): 03283341 ICD Code: I50.9 - HEART FAILURE, UNSPECIFIED Status: Chronic Priority: High Current Visit: Yes (5) Failure to thrive SNOMED Code(s): 32610523 ICD Code: [id number] - Status: Acute Priority: High Current Visit: Yes Qualifiers: Failure to thrive age range: in adult Qualified Code(s): R62.7 - Adult failure to thrive (6) Nausea & vomiting SNOMED Code(s): 35094644 ICD Code: R11.2 - NAUSEA WITH VOMITING, UNSPECIFIED Status: Acute Priority: High Current Visit: Yes Qualifiers: Vomiting type: unspecified Vomiting Intractability: unspecified Qualified Code(s): R11.2 - Nausea with vomiting, unspecified (7) Urinary retention SNOMED Code(s): 650825226 ICD Code: R33.9 - RETENTION OF URINE, UNSPECIFIED Status: Acute Priority: High Current Visit: Yes Problem List Initiated/Reviewed/Updated: Yes Orders Last 24hrs: Active Orders 24 hr Category Date Time Status Admission Status [Patient Status] [ADT] Routine ADT 02/19/20 11:31 Active Patient Status [ADT] Routine ADT 02/19/20 12:04 Active Cardiac Monitoring [RC] CONTINUOUS Care 02/19/20 12:06 Active Height and Weight [RC] 04 Care 02/19/20 12:04 Active Oxygen Therapy [RC] PRN Care 02/19/20 12:04 Active Up With Assistance [RC] ASDIRECTED Care 02/19/20 12:04 Active VTE/DVT Education [RC] BID Care 02/19/20 12:04 Active Vital Signs [RC] Q4HR Care 02/19/20 12:04 Active Consult to Case Management/Typing Bookkeeper [CONS] Cons 02/19/20 12:04 Active Routine Consult to Litigation Legal Assistant [CONS] Routine Cons 02/19/20 12:04 Active Consult to Spiritual Care [CONS] Routine Cons 02/19/20 12:04 Active OT Evaluation and Treatment [CONS] Routine Cons 02/19/20 12:04 Active PT Evaluation and Treatment [CONS] Routine Cons 02/19/20 12:04 Active Full Liquid Diet [DIET] Diet 02/19/20 Dinner Active CBC WITH AUTO DIFF [HEME] AM Lab 02/20/20 05:11 Ordered COMPREHENSIVE METABOLIC PN,CMP [CHEM] AM Lab 02/20/20 05:11 Ordered MAGNESIUM [CHEM] AM Lab 02/20/20 05:11 Ordered PACKED CELLS [RED BLOOD CELLS LP] [BBK] Stat Lab 02/19/20 09:31 Results TYPE AND SCREEN [BBK] Stat Lab 02/19/20 09:31 Results Acetaminophen [TylenoL] Med 02/19/20 12:04 Active 650 mg PO Q4H PRN Dextrose 5%-Lactated Ringers 1,000 ml Med 02/19/20 09:15 Active IV ASDIRECTED Docusate Sodium [Colace] Med 02/19/20 12:04 Active 100 mg PO BID PRN HYDROmorphone [Dilaudid] Med 02/19/20 12:04 Active 0.25 mg IVPUSH Q2H PRN Ondansetron [Zofran] Med 02/19/20 12:04 Active 4 mg IV Q4H PRN Sodium Chloride 0.9% [Normal Saline] 250 ml Med 02/19/20 13:15 Active IV ASDIRECTED Sodium Chloride 0.9% [Saline Flush] Med 02/19/20 12:04 Active 10 ml FLUSH ASDIRECTED PRN Saline Lock Insert [OM.PC] Routine Oth 02/19/20 12:04 Ordered Transfuse RBC [Transfuse Red Blood Cells] [COMM] Stat Oth 02/19/20 11:26 Ordered Resuscitation Status Routine Resus Stat 02/19/20 12:04 Ordered Medication Orders Acetaminophen (Tylenol) 650 mg PO Q4H PRN PRN Reason: Pain (Mild 1-3)/fever Docusate Sodium (Colace) 100 mg PO BID PRN PRN Reason: Constipation Hydromorphone HCl (Dilaudid) 0.25 mg IVPUSH Q2H PRN PRN Reason: Pain (severe 7-10) Dextrose/Lactated Ringer's (Dextrose 5%-Lactated Ringers) 1,000 mls @ 500 mls/hr IV ASDIRECTED SANIA Last Admin: 02/19/20 10:10 Dose: 500 mls/hr Documented by: WAQAR Sodium Chloride (Normal Saline) 250 mls @ 100 mls/hr IV ASDIRECTED SANIA Stop: 02/19/20 23:00 Ondansetron HCl (Zofran) 4 mg IV Q4H PRN PRN Reason: Nausea/Vomiting Last Admin: 02/19/20 12:58 Dose: 4 mg Documented by: OLIVA Sodium Chloride (Saline Flush) 10 ml FLUSH ASDIRECTED PRN PRN Reason: Keep Vein Open Assessment/Plan Comment:: * 65-year-old male recently treated with chemotherapy on February 14 for esophageal cancer. Patient states this was his last treatment. * Was seen in the emergency department last evening with weakness and was given IV fluids and sent home. At that time his hemoglobin was 7.6. * Return to the ED today with similar symptoms of weakness failure to thrive and weight loss and intermittent ability to care for himself. Hemoglobin today is 7.1 * Vitals in the ED reveal temp 35.8 Celsius, pulse 77, respiratory rate 20, blood pressure 111/74, pulse ox 98% on room air * Labs in the ED revealed WBC 3.53, hemoglobin 7.1, hematocrit 23.0, platelet count 162, BUN 50, creatinine 1.1, GFR greater than 60, troponin less than 0.017, C-reactive protein 1.1, total protein 5.6, albumin 2.7, BNP 1076, * Patient was given 40 mg IV Lasix in the emergency department after receiving 1 L of D5 LR. PLAN: Adverse effect of chemotherapy, Anemia, Nausea & vomiting, Failure to thrive * Patient to receive 2 units of PRBCs. * Will recheck labs in the a.m. specifically follow-up hemoglobin * Zofran 4 mg every 4 hours as needed for nausea and vomiting * Dietitian to consult regarding caloric needs also patient currently receives tube feedings at home as we will need to continue this. * PT OT to eval and treat Esophageal adenocarcinoma * Patient did finish last chemotherapy treatment on February 14. He will follow-up with his oncologist who is at [facility] in [place]. Mild congestive heart failure * Patient did receive 40 mg of Lasix IV in the emergency department. * Will monitor regarding the need for a second dose of Lasix after 2 units of blood transfused. 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 Lovenox for DVT prophylaxis. - Mortality Measure Prognosis:: Poor
[2020-02-19] MEDS: Enoxaparin 30 MG/0.3 ML Syringe SUBCUT SCH (15:42)
[2020-02-20] MEDS: Enoxaparin 30 MG/0.3 ML Syringe SUBCUT SCH ×2 (03:00→16:34)
[2020-02-20] MEDS: Ondansetron 4 MG/2 ML SDV IV PRN ×2 (03:00→09:27)
[2020-02-20] MEDS ORDERED: Magnesium Sulfate/Water 2 GM/50 ML BAG IV ONE (07:34)
[2020-02-20] MEDS: Potassium Chloride 20 MEQ Tab.ER PO SCH ×2 (09:41→12:43)
[2020-02-20] MEDS ORDERED: Metoclopramide 10 MG/2 ML SDV IVPUSH PRN (09:55)
[2020-02-20] MEDS: Rosuvastatin 10 MG Tab PO SCH (12:43)
--- NOTE | 2020-02-20 14:24 | PCM.PN ---
- General Info Date of Service: 02/20/20 Admission Dx/Problem (Free Text): Admission Diagnosis/Problem Admission Diagnosis/Problem Anemia Subjective Update: Patient reports not feeling well today. He states he feels worse than yesterday. Due to the side effects of chemotherapy. Functional Status: Reports: Pain Controlled, Ambulating (Physical therapy ordered), Urinating. Denies: Tolerating Diet (Patient is receiving tube feedings.) - Review of Systems General: Reports: Weakness, Fatigue HEENT: Reports: Glasses Pulmonary: Reports: No Symptoms Cardiovascular: Reports: No Symptoms Gastrointestinal: Reports: Nausea, Vomiting (When tube feeding rate increased) Genitourinary: Reports: No Symptoms Musculoskeletal: Reports: No Symptoms Skin: Reports: No Symptoms Neurological: Reports: No Symptoms Psychiatric: Reports: No Symptoms - Patient Data Vitals - Most Recent: Last Vital Signs Temp 97.9 F 02/20/20 12:17 Pulse 78 02/20/20 12:17 Resp 20 02/20/20 12:17 BP 102/56 L 02/20/20 12:17 Pulse Ox 98 02/20/20 12:17 Weight - Most Recent: 129 lb 3.2 oz I&O - Last 24 Hours: Intake & Output 02/19/20 02/20/20 02/20/20 22:59 06:59 14:59 Intake Total 2024 600 Output Total 1600 975 Balance 424 -375 Lab Results Last 24 Hours: Laboratory Results - last 24 hr 02/19/20 02/20/20 02/20/20 Range/Units 09:31 05:09 05:09 WBC 3.28 L (4.23-9.07) K/mm3 RBC 2.94 L (4.63-6.08) M/mm3 Hgb 8.7 L D (13.7-17.5) gm/dl Hct 27.0 L (40.1-51.0) % MCV 91.8 D (79.0-92.2) fl MCH 29.6 (25.7-32.2) pg MCHC 32.2 (32.2-35.5) g/dl RDW Std Deviation 55.5 H (35.1-43.9) fL Plt Count 155 L (163-337) K/mm3 MPV 11.3 (9.4-12.3) fl Neut % (Auto) 72.6 H (34.0-67.9) % Lymph % (Auto) 5.2 L (21.8-53.1) % Mckean % (Auto) 21.3 H (5.3-12.2) % Eos % (Auto) 0.3 L (0.8-7.0) Baso % (Auto) 0.3 (0.1-1.2) % Neut # (Auto) 2.38 (1.78-5.38) K/mm3 Lymph # (Auto) 0.17 L (1.32-3.57) K/mm3 Mckean # (Auto) 0.70 (0.30-0.82) K/mm3 Eos # (Auto) 0.01 L (0.04-0.54) K/mm3 Baso # (Auto) 0.01 (0.01-0.08) K/mm3 Manual Slide Review Abnormal smear Sodium 138 (136-145) mEq/L Potassium 3.4 L (3.5-5.1) mEq/L Chloride 105 (98-107) mEq/L Carbon Dioxide 23 (21-32) mEq/L Anion Gap 13.4 (5-15) BUN 32 H (7-18) mg/dL Creatinine 0.9 (0.7-1.3) mg/dL Est Cr Clr Drug Dosing 66.92 mL/min Estimated GFR (MDRD) > 60 (>60) mL/min BUN/Creatinine Ratio 35.6 H (14-18) Glucose 117 H (80-115) mg/dL Calcium 8.0 L (8.5-10.1) mg/dL Magnesium 1.7 L (1.8-2.4) mg/dl Total Bilirubin 0.5 (0.2-1.0) mg/dL AST 21 (15-37) U/L ALT 35 (16-63) U/L Alkaline Phosphatase 56 (46-116) U/L Total Protein 4.9 L (6.4-8.2) g/dl Albumin 2.2 L (3.4-5.0) g/dl Globulin 2.7 gm/dL Albumin/Globulin Ratio 0.8 L (1-2) Blood Type O POSITIVE Gel Antibody Screen Negative Crossmatch See Detail Med Orders - Current: Current Medications Acetaminophen (Tylenol) 650 mg PO Q4H PRN PRN Reason: Pain (Mild 1-3)/fever Docusate Sodium (Colace) 100 mg PO BID PRN PRN Reason: Constipation Enoxaparin Sodium (Lovenox) 30 mg SUBCUT Q12H [facility] Last Admin: 02/20/20 03:00 Dose: 30 mg Documented by: Hydromorphone HCl (Dilaudid) 0.25 mg IVPUSH Q2H PRN PRN Reason: Pain (severe 7-10) Dextrose/Lactated Ringer's (Dextrose 5%-Lactated Ringers) 1,000 mls @ 500 mls/hr IV ASDIRECTED [facility] Last Admin: 02/19/20 10:10 Dose: 500 mls/hr Documented by: Metoclopramide HCl (Reglan) 5 mg IVPUSH Q4H PRN PRN Reason: Nausea/Vomiting Last Admin: 02/20/20 10:39 Dose: 5 mg Documented by: Ondansetron HCl (Zofran) 4 mg IV Q4H PRN PRN Reason: Nausea/Vomiting Last Admin: 02/20/20 09:27 Dose: 4 mg Documented by: Rosuvastatin Calcium (Crestor) 20 mg PO DAILY [facility] Last Admin: 02/20/20 12:43 Dose: 20 mg Documented by: Sodium Chloride (Saline Flush) 10 ml FLUSH ASDIRECTED PRN PRN Reason: Keep Vein Open Discontinued Medications Furosemide (Lasix) 40 mg IVPUSH NOW ONE Stop: 02/19/20 11:30 Last Admin: 02/19/20 22:24 Dose: Not Given Documented by: Sodium Chloride (Normal Saline) 250 mls @ 100 mls/hr IV ASDIRECTED [facility] Stop: 02/19/20 23:00 Magnesium Sulfate (Magnesium Sulfate In Water Premix) 2 gm in 50 mls @ 25 mls/hr IV ONETIME ONE Stop: 02/20/20 09:33 Last Admin: 02/20/20 09:40 Dose: 25 mls/hr Documented by: Ondansetron HCl (Zofran) 4 mg IVPUSH ONETIME ONE Stop: 02/19/20 14:30 Last Admin: 02/19/20 14:43 Dose: 4 mg Documented by: Potassium Chloride (Klor-Con M20) 40 meq PO Q4H [facility] Stop: 02/20/20 11:46 Last Admin: 02/20/20 12:43 Dose: 40 meq Documented by: - Exam Quality Assessment: Urine Catheter (Placed in the emergency department on 02/18/2020. Will remove today.), DVT Prophylaxis (Lovenox). No: Supplemental Oxygen General: Alert, Oriented, Cooperative, Mild Distress HEENT: Pupils Equal, Pupils Reactive, Mucous Membr. Moist/[place] Neck: Supple, Trachea Midline. No: Lymphadenopathy Lungs: Decreased Breath Sounds Cardiovascular: Regular Rate, Regular Rhythm, No Murmurs GI/Abdominal Exam: Normal Bowel Sounds, Soft, Non-Tender, No Distention (Male) Exam: Deferred Back Exam: Normal Inspection, Full Range of Motion Extremities: Normal Inspection, Normal Range of Motion, Non-Tender, No Pedal Edema, Normal Capillary Refill Peripheral Pulses: 2+: Radial (L), Radial (R), Dorsalis Pedis (L), Dorsalis Pedis (R) Skin: Warm, Dry, Intact Neurological: No New Focal Deficit Psy/Mental Status: Alert, Normal Affect, Normal Mood Sepsis Event Note - Evaluation Sepsis Screening Result: No Definite Risk - Focused Exam Vital Signs: Vital Signs Temp Pulse Pulse Resp BP BP Pulse Ox 02/20/20 12:17 97.9 F 78 20 102/56 L 98 02/20/20 08:55 74 95/61 97 02/20/20 07:59 97.5 F 78 12 105/76 100 02/20/20 03:07 98.1 F 69 22 H 103/72 99 - Problem List & Annotations (1) Adverse effect of chemotherapy SNOMED Code(s): 387872605 Code(s): T45.1X5A - ADVERSE EFFECT OF ANTINEOPLASTIC AND IMMUNOSUP DRUGS, INIT Status: Acute Priority: High Current Visit: Yes Qualifiers: Encounter type: initial encounter Qualified Code(s): T45.1X5A - Adverse effect of antineoplastic and immunosuppressive drugs, initial encounter (2) Anemia SNOMED Code(s): 700091913 Code(s): D64.9 - ANEMIA, UNSPECIFIED Status: Acute Priority: High Current Visit: Yes Qualifiers: Anemia type: other cause Other causes of anemia: antineoplastic chemotherapy Qualified Code(s): D64.81 - Anemia due to antineoplastic chemotherapy; T45.1X5A - Adverse effect of antineoplastic and immunosuppressive drugs, initial encounter (3) Esophageal adenocarcinoma SNOMED Code(s): 076215164 Code(s): C15.9 - MALIGNANT NEOPLASM OF ESOPHAGUS, UNSPECIFIED Status: Acute Priority: High Current Visit: Yes (4) Mild congestive heart failure SNOMED Code(s): 10765454 Code(s): I50.9 - HEART FAILURE, UNSPECIFIED Status: Chronic Priority: High Current Visit: Yes (5) Failure to thrive SNOMED Code(s): 53173264 Code(s): RXK4236 - Status: Acute Priority: High Current Visit: Yes Qualifiers: Failure to thrive age range: in adult Qualified Code(s): R62.7 - Adult failure to thrive (6) Nausea & vomiting SNOMED Code(s): 93642724 Code(s): R11.2 - NAUSEA WITH VOMITING, UNSPECIFIED Status: Acute Priority: High Current Visit: Yes Qualifiers: Vomiting type: unspecified Vomiting Intractability: unspecified Qualified Code(s): R11.2 - Nausea with vomiting, unspecified (7) Urinary retention SNOMED Code(s): 093216841 Code(s): R33.9 - RETENTION OF URINE, UNSPECIFIED Status: Acute Priority: High Current Visit: Yes - Problem List Review Problem List Initiated/Reviewed/Updated: Yes - My Orders Last 24 Hours: My Active Orders 02/19/20 16:00 Enoxaparin [Lovenox] 30 mg SUBCUT Q12H 02/19/20 Dinner Full Liquid Diet [DIET] 02/19/20 18:47 Aspiration Precautions [RC] ASDIRECTED Tube Feeding [Enteral Feedings] [RC] 11,15,19,23,03,07 02/20/20 09:55 Metoclopramide [Reglan] 5 mg IVPUSH Q4H PRN 02/20/20 11:00 Rosuvastatin [Crestor] 20 mg PO DAILY 02/21/20 05:11 CBC WITH AUTO DIFF [HEME] AM COMPREHENSIVE METABOLIC PN,CMP [CHEM] AM MAGNESIUM [CHEM] AM - Assessment Assessment:: 02/20/20 * Reports feeling worse today than yesterday. * Currently receiving Jevity tube feeding at 65 mL's per hour. Patient is n.p.o. at this time. * Patient did vomit at around 1030. At that time nursing staff checked to see how much residual he had from his tube feeding. They reported that he had no residuals at this time. Tube feeding was stopped for 1 hour. Patient was also medicated with Reglan 5 mg at this time as he states the Zofran is not really helping. * Hemoglobin 8.7, WBC 3.28, potassium 3.4, BUN 3.2, creatinine 0.9, GFR greater than 60, magnesium 1.7 * Lovenox for DVT prophylaxis * Vital signs remained stable. * environmental services director has been in to visit with the patient regarding assisted living or short stay fci placement until he gets his strength back however he is not interested in any of this and is persistent in returning to home. - Plan Plan:: * 65-year-old male recently treated with chemotherapy on February 14 for esophageal cancer. Patient states this was his last treatment. * Was seen in the emergency department last evening with weakness and was given IV fluids and sent home. At that time his hemoglobin was 7.6. * Return to the ED today with similar symptoms of weakness failure to thrive and weight loss and intermittent ability to care for himself. Hemoglobin today is 7.1 * Vitals in the ED reveal temp 35.8 Celsius, pulse 77, respiratory rate 20, blood pressure 111/74, pulse ox 98% on room air * Labs in the ED revealed WBC 3.53, hemoglobin 7.1, hematocrit 23.0, platelet count 162, BUN 50, creatinine 1.1, GFR greater than 60, troponin less than 0.017, C-reactive protein 1.1, total protein 5.6, albumin 2.7, BNP 1076, * Patient was given 40 mg IV Lasix in the emergency department after receiving 1 L of D5 LR. PLAN: Adverse effect of chemotherapy, Anemia, Nausea & vomiting, Failure to thrive * Patient to receive 2 units of PRBCs. * Will recheck labs in the a.m. specifically follow-up hemoglobin * Zofran 4 mg every 4 hours as needed for nausea and vomiting * Dietitian to consult regarding caloric needs also patient currently receives tube feedings at home as we will need to continue this. * PT OT to eval and treat Esophageal adenocarcinoma * Patient did finish last chemotherapy treatment on February 14. He will follow-up with his oncologist who is at [facility] in [place]. Mild congestive heart failure * Patient did receive 40 mg of Lasix IV in the emergency department. * Will monitor regarding the need for a second dose of Lasix after 2 units of blood transfused. Urinary retention * Continue Collins catheter at this time Patient is a full code environmental services director for discharge planning as patient may need a short fci stay to increase his strength to return home. Lovenox for DVT prophylaxis. 02/20/20 * Will recheck labs in the morning. * Zofran and Reglan for nausea. * Discontinue Collins catheter today. * PT OT to eval and treat. * environmental services director for discharge planning * Lovenox for DVT prophylaxis * Tube feedings per dietitian recommendations.
[2020-02-20] MEDS ORDERED: Melatonin 3 MG Tab PO PRN (19:14)
[2020-02-21] MEDS: Enoxaparin 30 MG/0.3 ML Syringe SUBCUT SCH (03:36)
[2020-02-21] MEDS: Rosuvastatin 10 MG Tab PO SCH (08:59)
--- NOTE | 2020-02-21 12:11 | PCM.DCSUM1 ---
Discharge Summary - Hospital Course HPI Initial Comments: 65-year-old male presents to the ED per [facility]. Generalized weakness and inability to care for himself. Patient was diagnosed with cancer of the esophagus in December of this year and still tries to drink fluids per ora. He often vomits up solid food. He has a gastric feeding tube been placed left upper abdomen from which she receives most of his nutrition. He estimates that he is lost 35 to 38 pounds of weight since the beginning of this illness in November. He was seen through the ED yesterday and treated with intravenous fluids and felt better and decided to try things at home. He found he is too weak to continue with things at home. He did not fall but he cannot walk on his own volition. Denies any diarrhea. Orts he believes he had a fever at home last night. Does have a mildly productive cough. No abdominal pain at this ti me. Patient was identified to have a urinary retention last evening with a 402 mils left in his urinary bladder on bladder scan. Collins catheter was placed and remains in place at this time. Patient's hemoglobin last evening was 7.6 decision made not to treat with blood products. Patient is receiving chemotherapy with the last treatment given on February 14 at [facility] in [place]. Patient has received radiation to the lower esophagus as well. As part of his investigations patient did have a Cardiolite stress test on 18 December which indicated a possible prior lateral to apex myocardial infarction. EGD was done on 18 December which found an esophageal mass at 38 cm which was biopsied the biopsies subsequently improved esophageal adenocarcinoma Diagnosis: Stroke: No - Discharge Data Discharge Date: 02/21/20 (Admit date: 02/19/20) Discharge Disposition: Home, Self-Care 01 Condition: Good - Referral to Home Health Primary Care Physician: PCP Not In Area - Discharge Diagnosis/Problem(s) (1) Adverse effect of chemotherapy SNOMED Code(s): 077599822 ICD Code: T45.1X5A - ADVERSE EFFECT OF ANTINEOPLASTIC AND IMMUNOSUP DRUGS, INIT Status: Acute Priority: High Current Visit: Yes Qualifiers: Encounter type: initial encounter Qualified Code(s): T45.1X5A - Adverse effect of antineoplastic and immunosuppressive drugs, initial encounter (2) Anemia SNOMED Code(s): 854445816 ICD Code: D64.9 - ANEMIA, UNSPECIFIED Status: Acute Priority: High Current Visit: Yes Qualifiers: Anemia type: other cause Other causes of anemia: antineoplastic chemotherapy Qualified Code(s): D64.81 - Anemia due to antineoplastic chemotherapy; T45.1X5A - Adverse effect of antineoplastic and immunosuppressive drugs, initial encounter (3) Esophageal adenocarcinoma SNOMED Code(s): 767408032 ICD Code: C15.9 - MALIGNANT NEOPLASM OF ESOPHAGUS, UNSPECIFIED Status: Acute Priority: High Current Visit: Yes (4) Mild congestive heart failure SNOMED Code(s): 26865274 ICD Code: I50.9 - HEART FAILURE, UNSPECIFIED Status: Chronic Priority: High Current Visit: Yes (5) Failure to thrive SNOMED Code(s): 81474509 ICD Code: [id number] - Status: Acute Priority: High Current Visit: Yes Qualifiers: Failure to thrive age range: in adult Qualified Code(s): R62.7 - Adult failure to thrive (6) Nausea & vomiting SNOMED Code(s): 05247265 ICD Code: R11.2 - NAUSEA WITH VOMITING, UNSPECIFIED Status: Acute Priority: High Current Visit: Yes Qualifiers: Vomiting type: unspecified Vomiting Intractability: unspecified Qualified Code(s): R11.2 - Nausea with vomiting, unspecified (7) Urinary retention SNOMED Code(s): 981042248 ICD Code: R33.9 - RETENTION OF URINE, UNSPECIFIED Status: Acute Priority: High Current Visit: Yes - Patient Summary/Data Consults: Consultations 02/19/20 12:04 Consult to Case Management/Career And Technology Education Teacher [CONS] Routine Consult to Worm Sorter [CONS] Routine Consult to Spiritual Care [CONS] Routine OT Evaluation and Treatment [CONS] Routine PT Evaluation and Treatment [CONS] Routine Hospital Course: - Plan Assessment: * 65-year-old male recently treated with chemotherapy on February 14 for esophageal cancer. Patient states this was his last treatment. * Was seen in the emergency department last evening with weakness and was given IV fluids and sent home. At that time his hemoglobin was 7.6. * Return to the ED today with similar symptoms of weakness failure to thrive and weight loss and intermittent ability to care for himself. Hemoglobin today is 7.1 * Vitals in the ED reveal temp 35.8 Celsius, pulse 77, respiratory rate 20, blood pressure 111/74, pulse ox 98% on room air * Labs in the ED revealed WBC 3.53, hemoglobin 7.1, hematocrit 23.0, platelet count 162, BUN 50, creatinine 1.1, GFR greater than 60, troponin less than 0.017, C-reactive protein 1.1, total protein 5.6, albumin 2.7, BNP 1076, * Patient was given 40 mg IV Lasix in the emergency department after receiving 1 L of D5 LR. PLAN: Adverse effect of chemotherapy, Anemia, Nausea & vomiting, Failure to thrive * Patient to receive 2 units of PRBCs. * Will recheck labs in the a.m. specifically follow-up hemoglobin * Zofran 4 mg every 4 hours as needed for nausea and vomiting * Dietitian to consult regarding caloric needs also patient currently receives tube feedings at home as we will need to continue this. * PT OT to eval and treat Esophageal adenocarcinoma * Patient did finish last chemotherapy treatment on February 14. He will follow-up with his oncologist who is at [facility] in [place]. Mild congestive heart failure * Patient did receive 40 mg of Lasix IV in the emergency department. * Will monitor regarding the need for a second dose of Lasix after 2 units of blood transfused. Urinary retention * Continue Collins catheter at this time Patient is a full code dietary services manager for discharge planning as patient may need a short fci stay to increase his strength to return home. Lovenox for DVT prophylaxis. Assessment:: 02/20/20 * Reports feeling worse today than yesterday. * Currently receiving Jevity tube feeding at 65 mL's per hour. Patient is n.p.o. at this time. * Patient did vomit at around 1030. At that time nursing staff checked to see how much residual he had from his tube feeding. They reported that he had no residuals at this time. Tube feeding was stopped for 1 hour. Patient was also medicated with Reglan 5 mg at this time as he states the Zofran is not really helping. * Hemoglobin 8.7, WBC 3.28, potassium 3.4, BUN 3.2, creatinine 0.9, GFR greater than 60, magnesium 1.7 * Lovenox for DVT prophylaxis * Vital signs remained stable. * dietary services manager has been in to visit with the patient regarding assisted living or short stay fci placement until he gets his strength back however he is not interested in any of this and is persistent in returning to home. 02/20/20 * Will recheck labs in the morning. * Zofran and Reglan for nausea. * Discontinue Collins catheter today. * PT OT to eval and treat. * dietary services manager for discharge planning * Lovenox for DVT prophylaxis * Tube feedings per dietitian recommendations. 02/21/20 * Reports feeling much better today. * Currently receiving Jevity tube feedings at 65 mL's per hour. He did have a couple of episodes of emesis yesterday with 0 mL of residuals. He was given 5 mg of Reglan and he reports that this did seem to help considerably. * Labs reveal: WBC 3.49 up from 3.28, hemoglobin 8.9 up from 8.7, hematocrit 28.2 up from 27.0, potassium 3.8, BUN 28, creatinine 0.7, GFR greater than 60, magnesium 1.9 * Patient did have Collins catheter discontinued yesterday and has been voiding without difficulty. * Both the patient's white count and hemoglobin are resolving and he reports feeling better so I do agree with him being able to go home today. He does have a follow-up appointment already scheduled with his oncologist for March 03 and I strongly encouraged him to keep that appointment. I will send him home with a prescription for Reglan 5 mg every 6 hours as needed for nausea and vomiting. He is to resume his tube feedings as prior to this hospitalizations. - Patient Instructions Diet, Other: Resume tube feedings as per orders from your oncologist Activity: As Tolerated Notify Provider of: Fever Other/Special Instructions: May discharge to home. Resume tube feedings that were ordered by your oncologist prior to this hospitalization. Make sure that you do keep your appointment that is already scheduled for March 03 with your oncologist in [place]. May take Reglan 5 mg ODT every 6 hours as needed for nausea and vomiting. Should your condition worsen or change please return to the ER. - Discharge Plan *PRESCRIPTION DRUG MONITORING PROGRAM REVIEWED*: Not Applicable *COPY OF PRESCRIPTION DRUG MONITORING REPORT IN PATIENT SRINIVAS: Not Applicable Prescriptions/Med Rec: Metoclopramide HCl [Metoclopramide HCl Odt] 5 mg PO Q6H PRN #20 tab.rapdis PRN Reason: Nausea/Vomiting Home Medications: Home Meds Multivit-Min/FA/Lycopen/Lutein [Certavite Sr-Antioxidant Tab] 1 tab PEGTUBE DAILY 02/18/20 [History] Metoprolol Succinate 50 mg PO DAILY 02/19/20 [History] Rosuvastatin [Crestor] 20 mg PO DAILY 02/19/20 [History] Metoclopramide HCl [Metoclopramide HCl Odt] 5 mg PO Q6H PRN #20 tab.rapdis 02/21/20 [Rx] Oxygen Therapy Mode: Room Air Patient Handouts: Heart Failure, Diagnosis Referrals: Jerilyn Dawkins PA-C [Physician Account Officer] - - Discharge Summary/Plan Comment DC Time >30 min.: No - General Info Date of Service: 02/21/20 Admission Dx/Problem (Free Text: Admission Diagnosis/Problem Admission Diagnosis/Problem Anemia Subjective Update: Patient reports feeling much better today and is requesting to go home. Functional Status: Reports: Pain Controlled, Tolerating Diet (Tolerating tube feeding), Ambulating, Urinating - Review of Systems General: Reports: No Symptoms HEENT: Reports: Glasses Pulmonary: Reports: No Symptoms Cardiovascular: Reports: No Symptoms Gastrointestinal: Reports: Flatus Genitourinary: Reports: No Symptoms Musculoskeletal: Reports: No Symptoms Skin: Reports: No Symptoms Neurological: Reports: No Symptoms Psychiatric: Reports: No Symptoms - Patient Data Vitals - Most Recent: Last Vital Signs Temp 98.1 F 02/21/20 07:39 Pulse 80 02/21/20 07:39 Resp 16 02/21/20 07:39 BP 112/71 02/21/20 07:39 Pulse Ox 100 02/21/20 07:39 Weight - Most Recent: 130 lb 3.2 oz I&O - Last 24 hours: Intake & Output 02/20/20 02/21/20 02/21/20 22:59 06:59 14:59 Intake Total 1006 1220 Output Total 800 725 Balance 206 495 Lab Results - Last 24 hrs: Laboratory Results - last 24 hr 02/21/20 02/21/20 Range/Units 05:14 05:14 WBC 3.49 L (4.23-9.07) K/mm3 RBC 3.01 L (4.63-6.08) M/mm3 Hgb 8.9 L (13.7-17.5) gm/dl Hct 28.2 L (40.1-51.0) % MCV 93.7 H (79.0-92.2) fl MCH 29.6 (25.7-32.2) pg MCHC 31.6 L (32.2-35.5) g/dl RDW Std Deviation 57.3 H (35.1-43.9) fL Plt Count 151 L (163-337) K/mm3 MPV 11.5 (9.4-12.3) fl Neut % (Auto) 69.2 H (34.0-67.9) % Lymph % (Auto) 7.2 L (21.8-53.1) % [place] % (Auto) 21.5 H (5.3-12.2) % Eos % (Auto) 0.9 (0.8-7.0) Baso % (Auto) 0.3 (0.1-1.2) % Neut # (Auto) 2.42 (1.78-5.38) K/mm3 Lymph # (Auto) 0.25 L (1.32-3.57) K/mm3 [place] # (Auto) 0.75 (0.30-0.82) K/mm3 Eos # (Auto) 0.03 L (0.04-0.54) K/mm3 Baso # (Auto) 0.01 (0.01-0.08) K/mm3 Manual Slide Review Abnormal smear Sodium 136 (136-145) mEq/L Potassium 3.8 (3.5-5.1) mEq/L Chloride 104 (98-107) mEq/L Carbon Dioxide 25 (21-32) mEq/L Anion Gap 10.8 (5-15) BUN 28 H (7-18) mg/dL Creatinine 0.7 (0.7-1.3) mg/dL Est Cr Clr Drug Dosing 86.71 mL/min Estimated GFR (MDRD) > 60 (>60) mL/min BUN/Creatinine Ratio 40.0 H (14-18) Glucose 131 H (80-115) mg/dL Calcium 8.0 L (8.5-10.1) mg/dL Magnesium 1.9 (1.8-2.4) mg/dl Total Bilirubin 0.4 (0.2-1.0) mg/dL AST 21 (15-37) U/L ALT 36 (16-63) U/L Alkaline Phosphatase 64 (46-116) U/L Total Protein 4.9 L (6.4-8.2) g/dl Albumin 2.1 L (3.4-5.0) g/dl Globulin 2.8 gm/dL Albumin/Globulin Ratio 0.8 L (1-2) Med Orders - Current: Current Medications Acetaminophen (Tylenol) 650 mg PO Q4H PRN PRN Reason: Pain (Mild 1-3)/fever Docusate Sodium (Colace) 100 mg PO BID PRN PRN Reason: Constipation Enoxaparin Sodium (Lovenox) 30 mg SUBCUT Q12H [facility] Last Admin: 02/21/20 03:36 Dose: 30 mg Documented by: Hydromorphone HCl (Dilaudid) 0.25 mg IVPUSH Q2H PRN PRN Reason: Pain (severe 7-10) Melatonin (Melatonin) 9 mg PO BEDTIME PRN PRN Reason: Insomnia Last Admin: 02/20/20 19:44 Dose: 9 mg Documented by: Metoclopramide HCl (Reglan) 5 mg IVPUSH Q4H PRN PRN Reason: Nausea/Vomiting Last Admin: 02/20/20 10:39 Dose: 5 mg Documented by: Ondansetron HCl (Zofran) 4 mg IV Q4H PRN PRN Reason: Nausea/Vomiting Last Admin: 02/20/20 09:27 Dose: 4 mg Documented by: Rosuvastatin Calcium (Crestor) 20 mg PO DAILY [facility] Last Admin: 02/21/20 08:59 Dose: 20 mg Documented by: Sodium Chloride (Saline Flush) 10 ml FLUSH ASDIRECTED PRN PRN Reason: Keep Vein Open Discontinued Medications Furosemide (Lasix) 40 mg IVPUSH NOW ONE Stop: 02/19/20 11:30 Last Admin: 02/19/20 22:24 Dose: Not Given Documented by: Dextrose/Lactated Ringer's (Dextrose 5%-Lactated Ringers) 1,000 mls @ 500 mls/hr IV ASDIRECTED [facility] Last Admin: 02/19/20 10:10 Dose: 500 mls/hr Documented by: Sodium Chloride (Normal Saline) 250 mls @ 100 mls/hr IV ASDIRECTED [facility] Stop: 02/19/20 23:00 Magnesium Sulfate (Magnesium Sulfate In Water Premix) 2 gm in 50 mls @ 25 mls/hr IV ONETIME ONE Stop: 02/20/20 09:33 Last Admin: 02/20/20 09:40 Dose: 25 mls/hr Documented by: Ondansetron HCl (Zofran) 4 mg IVPUSH ONETIME ONE Stop: 02/19/20 14:30 Last Admin: 02/19/20 14:43 Dose: 4 mg Documented by: Potassium Chloride (Klor-Con M20) 40 meq PO Q4H [facility] Stop: 02/20/20 11:46 Last Admin: 02/20/20 12:43 Dose: 40 meq Documented by: - Exam Quality Assessment: Reports: DVT Prophylaxis (Lovenox). Denies: Supplemental Oxygen General: Reports: Alert, Oriented, Cooperative, No Acute Distress HEENT: Reports: Pupils Equal, Pupils Reactive, Mucous Membr. Moist/[place] Neck: Reports: Supple, Trachea Midline. Denies: Lymphadenopathy Lungs: Reports: Clear to Auscultation, Normal Respiratory Effort Cardiovascular: Reports: Regular Rate, Regular Rhythm, No Murmurs GI/Abdominal Exam: Normal Bowel Sounds, Soft, Non-Tender, No Distention (Male) Exam: Deferred Rectal (Males) Exam: Deferred Back Exam: Reports: Normal Inspection, Full Range of Motion Extremities: Normal Inspection, Normal Range of Motion, Non-Tender, No Pedal Edema, Normal Capillary Refill Skin: Reports: Warm, Dry, Intact Neurological: Reports: No New Focal Deficit Psy/Mental Status: Reports: Alert, Normal Affect, Normal Mood
== END 2020-02-21 13:15 | disposition home or self-care (01) | DRG 812 ==
LOC: JD.ED 08:41 → JD.MS 11:31
PROVIDERS: ADMIT Family Medicine; ATTEND Family Medicine
PROC: 30233W1 Transfusion of Nonautologous Factor IX into Peripheral Vein, Percutaneous Approach (ICD-10-PCS; principal; 2020-02-19)
DX: D64.89 Other specified anemias (principal); D64.81 Anemia due to antineoplastic chemotherapy; C15.9 Malignant neoplasm of esophagus, unspecified; I13.0 Hypertensive heart and chronic kidney disease with heart failure and stage 1 through stage 4 chronic kidney disease, or unspecified chronic kidney disease; D72.829 Elevated white blood cell count, unspecified; T45.1X5A Adverse effect of antineoplastic and immunosuppressive drugs, initial encounter; I50.9 Heart failure, unspecified; R62.7 Adult failure to thrive; E78.00 Pure hypercholesterolemia, unspecified; I10 Essential (primary) hypertension; I25.2 Old myocardial infarction; I49.3 Ventricular premature depolarization; Z20.828 Contact with and (suspected) exposure to other viral communicable diseases; H54.7 Unspecified visual loss; N40.1 Benign prostatic hyperplasia with lower urinary tract symptoms; E87.6 Hypokalemia; Z93.1 Gastrostomy status; R33.8 Other retention of urine; I73.9 Peripheral vascular disease, unspecified; M10.9 Gout, unspecified; R53.1 Weakness; E86.9 Volume depletion, unspecified; Z79.899 Other long term (current) drug therapy; Z87.891 Personal history of nicotine dependence
CPT/HCPCS: 36415; 71045; 80053; 81001; 83605; 83735; 83880; 84484; 85025; 85610; 85730; 86140; 86850; 86900; 86901; 86922; 87635; 93005; 96360; 99285; J7121; 36430; 97116-GP; 97162-GP; 97165-GO; 97530-GO; 97530-GP; 99284; A9270-GY; J1650; J2405; J2765; J3475; P9016; U0002

== ENCOUNTER 2021-09-24 09:05 | Emergency (ER) | payer MEDICARE, MEDICAID | END 2021-09-24 12:00 | disposition home or self-care (01) | LOC: JD.ED 09:05 | DX: K94.23 Gastrostomy malfunction (principal); E78.00 Pure hypercholesterolemia, unspecified; I12.9 Hypertensive chronic kidney disease with stage 1 through stage 4 chronic kidney disease, or unspecified chronic kidney disease; N18.9 Chronic kidney disease, unspecified; Z79.899 Other long term (current) drug therapy | CPT/HCPCS: 51702; 99282-25; 99283 ==

== ENCOUNTER 2021-11-17 18:20 | Observation (INO) | payer MEDICARE, MEDICAID ==
[2021-11-17] MEDS ORDERED: Sodium Chloride 0.9% 1,000 ML IV ONE (19:37)
[2021-11-17] MEDS ORDERED: HYDROmorphone 0.5 MG/0.5 ML Syringe IVPUSH ONE (20:43)
[2021-11-17] MEDS ORDERED: Potassium Bicarbonate/Cit Ac 20 MEQ Effervescent Tab GTUBE STA (22:02)
[2021-11-17] MEDS ORDERED: Sodium Chloride 0.9% 1,000 ML IV SCH (22:15)
[2021-11-18] MEDS ORDERED: Sodium Chloride 0.9% 1,000 ML IV SCH (02:45)
[2021-11-18] MEDS ORDERED: Dextrose 5%-Lactated Ringers 1,000 ML IV SCH (10:00)
[2021-11-18] MEDS ORDERED: Enoxaparin 30 MG/0.3 ML Syringe SUBCUT SCH (10:30)
[2021-11-18] MEDS ORDERED: Diatrizoate Meglumine/Diatrizoate Sodium 37% 120 ML Bottle PO ONE (11:00)
[2021-11-18] MEDS ORDERED: HYDROmorphone 0.5 MG/0.5 ML Syringe IVPUSH ONE ×2 (12:53→15:00)
== END 2021-11-18 16:30 | disposition home health service (06) ==
LOC: JD.ED 18:20 → JD.MS 22:51
PROVIDERS: ADMIT Internal Medicine; ATTEND Internal Medicine
DX: K94.13 Enterostomy malfunction (principal); C78.7 Secondary malignant neoplasm of liver and intrahepatic bile duct; C80.1 Malignant (primary) neoplasm, unspecified; I12.9 Hypertensive chronic kidney disease with stage 1 through stage 4 chronic kidney disease, or unspecified chronic kidney disease; N18.2 Chronic kidney disease, stage 2 (mild); R64 Cachexia; E87.6 Hypokalemia; C15.9 Malignant neoplasm of esophagus, unspecified; R62.7 Adult failure to thrive; E43 Unspecified severe protein-calorie malnutrition; E86.9 Volume depletion, unspecified; N40.0 Benign prostatic hyperplasia without lower urinary tract symptoms; E87.5 Hyperkalemia; I73.9 Peripheral vascular disease, unspecified; E83.39 Other disorders of phosphorus metabolism; Z65.9 Problem related to unspecified psychosocial circumstances; Z98.890 Other specified postprocedural states; Z79.899 Other long term (current) drug therapy; Z79.83 Long term (current) use of bisphosphonates; Z88.5 Allergy status to narcotic agent; Z87.891 Personal history of nicotine dependence
CPT/HCPCS: 36415; 74018; 80048; 80053; 82947; 83605; 83735; 84100; 85025; 96361; 96365; 96366; 96372; 96374; 96376; 99284; A9270; G0378; J1170; J1650; J7030; J7050; J7121

== ENCOUNTER 2021-12-03 17:37 | Emergency (ER) | payer MEDICARE, MEDICAID ==
[2021-12-03] MEDS ORDERED: Lactated Ringers 1,000 ML IV SCH (18:15)
[2021-12-03] MEDS ORDERED: Potassium Chloride 20 MEQ Tab.ER PO ONE (20:00)
[2021-12-03] MEDS ORDERED: cefTRIAXone 1 GM in Sodium Chloride 0.9% 100 ML IV STA (20:30)
[2021-12-03] MEDS ORDERED: Azithromycin 500 MG in Sodium Chloride 0.9% 250 ML IV STA (20:31)
[2021-12-03] MEDS: Sodium Chloride 0.9% 1,000 ML IV SCH (21:05)
[2021-12-04] MEDS: Sodium Chloride 0.9% 1,000 ML IV SCH (04:49)
== END 2021-12-04 07:49 | disposition home or self-care (01) ==
LOC: JD.ED 17:37
DX: J18.9 Pneumonia, unspecified organism (principal); E87.6 Hypokalemia; I12.9 Hypertensive chronic kidney disease with stage 1 through stage 4 chronic kidney disease, or unspecified chronic kidney disease; N18.9 Chronic kidney disease, unspecified; E78.00 Pure hypercholesterolemia, unspecified; Z20.822 Contact with and (suspected) exposure to COVID-19
CPT/HCPCS: 36415; 74022; 80053; 83605; 83690; 85025; 93005; 96361; 96365; 96366; 96367; 99285; A9270; J0456; J0696; J7030; J7050; J7120; U0002

== ENCOUNTER 2021-12-04 10:02 | Emergency (ER) | payer MEDICARE, MEDICAID ==
[2021-12-04] MEDS ORDERED: Lactated Ringers 1,000 ML IV SCH ×2 (10:30→17:00)
[2021-12-04] MEDS ORDERED: Sodium Chloride 0.9% 500 ML IV ONE (12:51)
[2021-12-04] MEDS ORDERED: Piperacillin/Tazobactam 4.5 GM in Sodium Chloride 0.9% 100 ML IV ONE (13:20)
[2021-12-04] MEDS ORDERED: Lactated Ringers 500 ML IV ONE (16:27)
== END 2021-12-04 18:26 ==
LOC: JD.ED 10:02
DX: J18.9 Pneumonia, unspecified organism (principal); E86.0 Dehydration; R62.7 Adult failure to thrive; I12.9 Hypertensive chronic kidney disease with stage 1 through stage 4 chronic kidney disease, or unspecified chronic kidney disease; N18.9 Chronic kidney disease, unspecified; E78.00 Pure hypercholesterolemia, unspecified; Z88.6 Allergy status to analgesic agent; Z79.899 Other long term (current) drug therapy
CPT/HCPCS: 36415; 80053; 85025; 87040; 96361; 96365; 99285; J2543; J7030; J7120